=== PATIENT | male | born 1950 | race Caucasian/White ===

== ENCOUNTER → 2016-07-21 | Outpatient (REF) | payer OTHER ==
[~2016-07-21] MED LIST: ALFU10TA2 PO; ASPI325T PO; COUM2.5T11 PO; FURO1TAB15 PO; HYDR-3716 PO; METF500T PO; PERC5TAB6 PO; PRAV1TAB39 PO
== END ==
LOC: M LAB REF 16:37
PROVIDERS: ATTEND Nurse Practitioner Family
DX: S01.302A Unspecified open wound of left ear, initial encounter (principal); X58.XXXA Exposure to other specified factors, initial encounter; Y92.89 Other specified places as the place of occurrence of the external cause; Y93.89 Activity, other specified; Y99.8 Other external cause status

== ENCOUNTER → 2016-08-24 | Outpatient (CLI) | payer OTHER ==
--- NOTE | 2016-08-24 15:11 | REP ---
CT IACS WITHOUT CONTRAST: HISTORY: Chronic bilateral otitis. The right internal auditory canal, cochlea, vestibule and semicircular canals are normal in appearance. The ossicles are normal in configuration and position. The scutum is intact. There are areas of dehiscence in the tegmen. The middle ear cavity and mastoid air cells are clear. Soft tissue density is present in the right external auditory canal. This likely represents cerumen. There is no bone erosion. The left internal auditory canal, cochlea, vestibule and semicircular canals are normal in appearance. The ossicles are normal in configuration and position. The scutum is intact. There are areas of dehiscence in the tegmen. The middle ear cavity and mastoid air cells are clear. Soft tissue density is present in the left external auditory canal. This likely represents cerumen. There is no bone erosion. IMPRESSION: Normal CT IACs. Signed by Leon Dos Santos MD 08/24/2016 03:15 P
== END ==
LOC: M RAD 12:28
PROVIDERS: ATTEND Otolaryngology
DX: H65.23 Chronic serous otitis media, bilateral (principal)

== ENCOUNTER → 2016-09-17 | Outpatient (CLI) | payer OTHER ==
--- NOTE | 2016-09-17 12:10 | REP ---
Clinical: Preoperative assessment. History of diabetes . Comparison: 05/13/2016 . Technique: PA and lateral. Findings: The mediastinum and cardiac silhouette are normal. The lung maddox are clear and without acute consolidation, effusion, or pneumothorax. The skeletal structures are intact and normal. Impression: 1. No acute cardiopulmonary process. Signed by Kennedy Walker MD 09/17/2016 12:01 P
[2016-09-17 13:17] LABS: ALBUMIN 3.9 GM/DL (3.2-5.2); ALBUMIN/GLOBULIN RATIO 1.11 (1.00-1.93); ALKALINE PHOSPHATASE 100 U/L (45-117); ALT/SGPT 49 U/L (12-78); ANION GAP 7 MEQ/L (8-16); AST/SGOT 34 U/L (15-37); BILIRUBIN,TOTAL 0.3 MG/DL (0.2-1.0); BLOOD UREA NITROGEN 17 MG/DL (7-18); CALCIUM LEVEL 9.9 MG/DL (8.8-10.2); CARBON DIOXIDE LEVEL 32 MEQ/L (21-32); CHLORIDE LEVEL 100 MEQ/L (98-107); CREATININE FOR GFR 0.99 MG/DL (0.70-1.30); GLOMERULAR FILTRATION RATE > 60.0 (>49); GLUCOSE, FASTING 107 MG/DL (80-110); POTASSIUM SERUM 4.2 MEQ/L (3.5-5.1); SODIUM LEVEL 139 MEQ/L (136-145); TOTAL PROTEIN 7.4 GM/DL (6.4-8.2)
[2016-09-17 13:21] LABS: MEAN CORPUSCULAR HEMOGLOBIN 29.9 pg (27.0-33.0); MEAN CORPUSCULAR HGB CONC 33.2 g/dl (32.0-36.5); MEAN CORPUSCULAR VOLUME 90.1 fl (80.0-96.0); RED CELL DISTRIBUTION WIDTH 13.4 % (11.5-14.5); WHITE BLOOD COUNT 7.3 K/mm3 (4.0-10.0)
[2016-09-17 13:25] LABS: INR 0.87
--- NOTE | 2016-09-18 09:43 | ECGEPIP ---
Stationary ECG Study [facility] Test Date: 2016-09-17 Pat Name: GADIEL SHIN Department: Room: - Gender: M Staffing Program Manager: RAISSA : [id number] Requested By: Obdulio Hart Order Number: [id number] Reading MD: Danielle Kirk Measurements Intervals [place] Rate: 99 P: 73 MS: 246 QRS: 69 QRSD: 102 T: 60 QT: 320 QTc: 411 Interpretive Statements SINUS RHYTHM WITH SINUS ARRHYTHMIA WITH FIRST DEGREE AV BLOCK NO CHANGE SINCE 05/13/16 Electronically Signed On 09-18-2016 9:43:30 EDT by Danielle Kirk
== END ==
LOC: M ADMPAT 10:01
PROVIDERS: ATTEND Orthopaedic Surgery
DX: Z01.818 Encounter for other preprocedural examination (principal); M17.11 Unilateral primary osteoarthritis, right knee

== ENCOUNTER 2016-09-27 11:52 | Inpatient (IN) | payer OTHER ==
[2016-09-17 11:24] VITALS: BP 132/88
--- NOTE | 2016-09-23 14:27 | HPE ---
DATE OF ADMISSION: 09/27/2016 HISTORY OF PRESENT ILLNESS: This is a pleasant male with continuing symptomatic right knee osteoarthritis. He has consented for a right total knee arthroplasty per Dr. Obdulio Hart. Medical optimization per Dr. Smith, which we are still awaiting documentation. X-rays are consistent with advanced osteoarthritis. ALLERGIES: 1. Fish causes him swelling and throat closure. 2. IODINE. He has previously had some sort of response about his right arm that caused infection. 3. LIPITOR. 4. SULFA DRUGS. MEDICATIONS: List includes: - alfuzosin HCl ER 10 mg one tablet by mouth daily - aspirin 325 one by mouth every day - Coumadin 5 mg - take at bedtime the night before surgery - furosemide 80 mg one by mouth every day - metformin HCl 500 mg one by mouth daily - [place] 5/325 one by mouth every 6 hours as needed for pain - pravastatin 20 mg one tablet by mouth every day MEDICAL PROBLEM LIST: Includes: Right knee osteoarthritis. Obesity. Type 2 diabetes mellitus. Hypertension. Hypercholesteremia. SURGICAL HISTORY: Positive for: A left total knee arthroplasty in 2016. Hernia repair. Right carotid endarterectomy. Right bicep. FAMILY HISTORY: Positive for arthritis, diabetes, hypertension, thyroid disease, and hypercholesteremia. SOCIAL HISTORY: States he quit smoking. Rarely consumes alcohol. His record states he quit smoking 30 years ago, I thought he said 3. Denies illicit drugs. PHYSICAL EXAMINATION: Height 71 inches, weight 324, temperature 97.0, blood pressure 134/80, pulse 84, respirations 20. He is a pleasant well-developed, well-nourished, obese male in no acute distress. He is alert and orientated times three. Mood and affect are appropriate. Normocephalic. Neck supple. Negative JVD. Noted right-sided old healed carotid endarterectomy scar. Lungs are clear to auscultation. Chest rises symmetrically. Bowel sounds times four. He does have a stiff abdomen with central adiposity. Right lower extremity was inspected. Skin temperature, color and sensory motor within normal limits. This is a benign noninfectious looking limb. He has positive medial joint line tenderness with crepitance through flexion and extension. The knee is otherwise stable about the collateral ligaments, patellar, and quad tendons without palpable defects. No popliteal fossa mass or pain. IMPRESSION: 1. Symptomatic right knee osteoarthritis. 2. Patient consented for right total knee arthroplasty per Dr. Obdulio Hart. 3. Medical optimization per Dr. Smith, which we are awaiting documentation. 4. On-call to OR 2 grams IV Kefzol in OR. 5. Sequential compression devices (SCD) and thromboembolic deterrent stockings (TEDS) in OR. 6. The patient mentioned that he would prefer to be straddled along the operative table during his spinal block, which seemed to be helpful in his last total knee arthroplasty surgery. REYD
[~2016-09-27] VITALS: Ht 180.3 cm; Wt 153.0 kg
[~2016-09-27 11:52] MED LIST changes: +BUPIVACAINE HCL 0.25% 30 ML VIAL As Ordered ONE; +EPINEPHrine INJ 1 MG/ML 1ML VIAL/AMP As Ordered ONE; +TRANEXAMIC ACID 100 MG/ML 10ML VIAL As Ordered ONE; +ceFAZolin 1GM INJ (J0690) As Ordered ONE
[2016-09-27] MEDS ORDERED: LR 1,000 ML IV SCH ×4 (12:15→16:00)
[2016-09-27] MEDS ORDERED: BAYE325T12 PO (12:16)
[2016-09-27] MEDS ORDERED: COUM1TAB17 PO (12:38)
[2016-09-27] MEDS ORDERED: MIDAZOLAM INJ 2 MG/2 ML VIAL (J2250) As Ordered ONE ×3 (12:58→15:07)
[2016-09-27] MEDS ORDERED: fentaNYL 100 MCG/2 ML INJECTION (J3010) As Ordered ONE ×3 (12:58→14:05)
[2016-09-27] MEDS ORDERED: PHENYLephrine HCL 500 MCG/5 ML (100MCG/ML) SYRINGE (J2370) As Ordered ONE (14:05)
[2016-09-27] MEDS ORDERED: LIDOCAINE 2% INJ 100 MG/5 ML SDV (FOR ANES.) As Ordered ONE (14:05)
[2016-09-27] MEDS ORDERED: PROPOFOL 200 MG/20 ML VIAL As Ordered ONE ×3 (14:05→15:09)
[2016-09-27] MEDS ORDERED: ONDANSETRON 4MG/2ML VIAL (J2405) As Ordered ONE (14:05)
[2016-09-27] MEDS ORDERED: ROPIvacaine 0.5% 30 ML INJECTION (J2795) ONE (14:11)
[2016-09-27] MEDS ORDERED: MIDAZOLAM INJ 2 MG/2 ML VIAL (J2250) IV ONE (14:15)
[2016-09-27] MEDS ORDERED: fentaNYL 100 MCG/2 ML INJECTION (J3010) IV ONE (14:15)
[2016-09-27] MEDS ORDERED: ePHEDrine SULFATE 25 MG/5 ML(5MG/ML) SYRINGE As Ordered ONE (14:40)
[2016-09-27] MEDS ORDERED: MORPHINE PCA 1MG/ML 100ML CADD As Ordered ONE (15:48)
[2016-09-27] MEDS ORDERED: MORPHINE PCA 1MG/ML 100ML CADD IV PRN (16:00)
[2016-09-27] MEDS ORDERED: PATIENT IS CURRENTLY ON AN ON-Q PAIN BUSTER PAIN RELIEF SYSTEM XX SCH (16:00)
[2016-09-27] MEDS ORDERED: FLEET ENEMA PR PRN (16:00)
[2016-09-27] MEDS ORDERED: diphenhydrAMINE INJ 50MG/ML VIAL (J1200) IV PRN (16:00)
[2016-09-27] MEDS ORDERED: PERCOCET 5MG/325MG TAB PO PRN (16:00)
[2016-09-27] MEDS ORDERED: NALBUPHINE HCL 10 MG/ML AMP (J2300) IV PRN (16:00)
[2016-09-27] MEDS ORDERED: NALOXONE INJ 0.4 MG/1 ML VIAL (J2310) IV PRN (16:00)
[2016-09-27] MEDS ORDERED: ACETAMINOPHEN TAB 650MG DOSE (2X325MG) PO PRN (16:00)
[2016-09-27] MEDS ORDERED: ONDANSETRON 4MG/2ML VIAL (J2405) IV PRN ×3 (16:00)
[2016-09-27] MEDS ORDERED: EPIDURAL/PCA KEYS XX PRN (16:00)
[2016-09-27 16:40] VITALS: BP 137/76
[2016-09-27] MEDS ORDERED: WARFARIN SOD 5 MG TAB PO SCH (17:00)
[2016-09-27 17:10] VITALS: BP 151/71
--- NOTE | 2016-09-27 19:18 | CR.PDOC ---
[facility] Consultation Consultation Hospitalist Consult Note Date of Consultation: 09/27/2016 Reason for Consultation: Management of chronic medical issues Referring Provider: Dr. Obdulio Hart PCP: Dr. Smith HISTORY OF PRESENT ILLNESS: Mr. [place] is in the hospital for right total knee arthroplasty for chronic arthritis. He was just transferred to PCU after his surgery, he is awake alert and oriented 3. He is in no acute distress at this time. He does state that he is beginning to feel some pain in his right knee. Otherwise, regarding his chronic medical conditions, these all appear to be well controlled with his current medical regimen, will continue with medical management as detailed below. Of note, he used to suffer from hypertension, however after his endarterectomy (in quitting smoking) 3 years ago he has not required any antihypertensives. ALLERGIES: atorvastatin, iodine, sulfa antibiotics PAST MEDICAL HISTORY: Right knee osteoarthritis Obesity Type 2 diabetes mellitus Hypertension Hypercholesterolemia Obstructive sleep apnea Benign prostatic hyperplasia Chronic lower extremity edema Chronic shoulder and knee pain PAST SURGICAL HISTORY: Left TKA in April 2016 Hernia repair Right carotid endarterectomy Right biceps surgery SOCIAL HISTORY: Quit smoking approximately 3 years ago when he had his carotid endarterectomy. Rarely consumes alcohol, he essentially quit drinking 3-4 years ago as well. Denies illicit drug use. FAMILY HISTORY: Her mother suffered from dementia, hypertension, thyroid disease, and hypercholesterolemia, she recently in her 90s. His father had an abdominal aortic aneurysm, and supposedly from a clot in his legs that went up to his chest. He has a sister who has diabetes REVIEW OF SYSTEMS: Constitutional: Patient denies fevers, chills, night sweats, recent weight gain/ loss. HEENT: Patient denies blurred or double vision, transient visual disturbances, postnasal drip, epistaxis, sore throat, difficulty chewing or swallowing food. Cardiovascular: Patient denies chest discomfort/pain, palpitations, exertional dyspnea, orthopnea, claudication. He does suffer from chronic lower extremity edema which is well controlled on his current dose of Lasix. He does report that he had an echocardiogram performed in the past which was normal and requires no further intervention. He also does mention that he "occasionally has an extra beat, but it's not A. fib" Respiratory: Patient denies dyspnea, wheezing, cough, hemoptysis, sputum production. Gastrointestinal: Patient denies nausea, vomiting, diarrhea, constipation, abdominal pain, melena, hematochezia, hematemesis, jaundice. Musculoskeletal: He does admit that his right knee is beginning to have some pain, status post his right TKA today Endocrine: Patient denies polyuria, polydipsia, polyphagia. PHYSICAL EXAMINATION: Vitals:Temperature 97.8, pulse 95, respiratory rate 18, blood pressure 151/71, pulse oximetry is 96% on room air General: Awake, alert, oriented 3. He appears to be in no apparent distress. HEENT: Head normocephalic atraumatic, conjunctiva are pink, sclera are nonicteric, buccal mucosa is pink and moist with no lesions in the oropharynx. Hearing is grossly intact to conversation. Respiratory: Clear to auscultation bilaterally with no wheezes, rales, or rhonchi. Cardiovascular: Regular rate and rhythm, with no rubs, gallops, or murmur. I do not appreciate any extra beats at this time. Abdomen: Soft, obese, nontender, nondistended, no hepatosplenomegaly appreciated. Bowel sounds present. Extremities: 2+ pulses in the radial and dorsalis pedis bilaterally. No evidence of clubbing or cyanosis at this time. He is able to move his toes on both feet, and has sensation in both feet. ASSESSMENT: 1. Status post right TKA 2. Morbid obesity 3. Type 2 diabetes mellitus 4. Hypercholesterolemia 5. Obstructive sleep apnea 6. BPH 7. History of hypertension 8. DVT prophylaxis PLAN: His medication list was reviewed, we will continue his alfuzosin for BPH, aspirin and pravastatin for history of carotid artery disease and coronary artery disease status post endarterectomy. We'll continue his furosemide for chronic lower extremity edema, and metformin for his diabetes mellitus type 2. He has been diagnosed with obstructive sleep apnea, he did bring his CPAP with him which she will use in the hospital. Otherwise, he does take [place] 5/325 one by mouth every 6 hours when necessary for pain, however I will defer his pain management to orthopedic surgery. He is currently slightly hypertensive, although he is in some pain right now, and he just had his surgery today. We'll continue to monitor. DVD prophylaxis with Coumadin per ortho. My preceptor for this patient encounter was physically present in the building during the encounter and was fully available. As needed, all aspects of the patient interview, examination, medical decision making process, and medical care plan development were reviewed and approved by the preceptor. Preceptor is aware and concurs with the plan as stated in the body of this note and will attest to such by his/her cosignature. Laboratory Data Labs 24H Laboratory Tests 2 09/27/16 12:05: Random Glucose 109 09/27/16 12:30: Bedside Glucose (Misc Panel) 101 09/27/16 16:00: Bedside Glucose (Misc Panel) 103 Allergies Coded Allergies: Atorvastatin (Verified Allergy, Unknown, 05/26/16) Iodine (Verified Allergy, Unknown, 05/26/16) Sulfa Antibiotics (Verified Allergy, Unknown, 05/26/16) Home Medications Scheduled Alfuzosin Hydrochloride (Alfuzosin HCl ER) 10 Mg Tab 10 MG PO DAILY (Reported) Aspirin ([place] Aspirin) 325 Mg Tab 325 MG PO DAILY (Reported) Furosemide (Furosemide) 80 Mg Tab 80 MG PO DAILY (Reported) Metformin Hydrochloride (Metformin HCl) 500 Mg Tab 500 MG PO DAILY (Reported) Pravastatin Sodium (Pravachol) 20 Mg Tab 20 MG PO DAILY (Reported) Warfarin Sod (Coumadin) 5 Mg Tab 5 MG PO 1T (Reported) Scheduled PRN Acetaminophen/Hydrocodone (Hydrocodone/Acetaminophen 7.5-325 mg) 1 Tab Tab 1 TAB PO QIDP PRN PRN PAIN (Reported) Attending Note Attending Note I, Eloisa Urias, have seen and examined the above patient, and agree with the assessment and plan as documented above. Additionally, we will check the patient's blood sugars and use as needed sliding scale insulin before meals and at bedtime. EZIO KABA DO Sep 27, 2016 19:18 ELOISA URIAS Sep 27, 2016 21:04
[2016-09-27 20:00] VITALS: BP 97/56; PULSE 100; O2SAT 93
[2016-09-27] MEDS ORDERED: DEXTROSE 50% 50 ML SYRINGE IV PRN (21:15)
[2016-09-27] MEDS ORDERED: GLUCAGON FOR INJ 1 MG VIAL (J1610) SC PRN (21:15)
[2016-09-27] MEDS ORDERED: GLUCOSE 4 GM CHEW TABLET PO PRN (21:15)
--- NOTE | 2016-09-27 23:11 | RO ---
DATE OF PROCEDURE: 09/27/2016 PREOPERATIVE DIAGNOSIS: Right knee osteoarthritis. POSTOPERATIVE DIAGNOSIS: Right knee osteoarthritis. PROCEDURE: Right total knee arthroplasty using a PFC rotating platform, size 4 femur, size 4 tibia and a 15 polyethylene with a 38 patellar button. SURGEON: Dr. Obdulio Hart PROFESSOR OF SOCIOLOGY: Omer Mcallister ANESTHESIA: Spinal. ESTIMATED BLOOD LOSS: 50 mL. COMPLICATIONS: None. INDICATIONS: This is a 65-year-old morbidly obese gentleman with multiple medical problems who has had gradually worsening right knee pain. He went through a recent left knee arthroplasty and did well. He understood the nature of this, the risk of bleeding, infection, damage to nerves, vessels, persistent pain, wear loosening, blood clots, medical problems, instability, , among others. DESCRIPTION OF PROCEDURE: The patient was taken to the operating room and placed in the supine position after spinal anesthesia was induced. The right lower extremity was prepped and draped in the usual sterile fashion. Time-out was performed to create a longitudinal incision over the anterior aspect of the knee. Sharp dissection was carried down through this, retinaculum was encountered. It was evident that he had about a quarter size area on his inferior aspect of his patella that showed a significant amount of patellar tendonitis, but this was not something that required repair, it just looked to be somewhat frayed. But there was really no way to reinforce it. The medial parapatellar arthrotomy was performed. I everted the patella, flexed the knee up, removed any osteophytes and used the canal initiating reamer followed by the intramedullary guide set at 5 and 10. This was pinned in place by the event sales assistant and a distal femoral cut was made, which was appropriate. I protected soft tissues. I then sized the femur to be a 5, which is what we had used on the other side and pinned it in place with the 3 degree external rotation block. The 4-in-1 cutting block was then placed. The remaining cuts were made, protecting soft tissues. I then put the tibial alignment guide on with the 0 degree block, pinned this in place in appropriate amount of valgus and posterior slope and then ended up cutting 2 mm off the low side because it was quite deficient on the medial side, which was a sizable cut. It was evident, at this point, that the posterior cruciate ligament (PCL) was somewhat deficient. I removed the remaining soft tissue from the notch. I then used the steam plant control room operator to remove soft tissue and osteophytes from the femur. I then used the spacer blocks, and it was evident that I could get a 12.5 in flexion but a 15 was required in extension for stability and alignment. So, we decided to downsize the femur. I re-pinned the 4-in-1 cutting block size 5 on the end of the femur, then converted it over the size 4 and made the remaining cuts, removing 4 mm more of the bone from the posterior aspect of the femur, downsizing to a 4 and making the chamfer cuts. At this point, the blocks were appropriate, had excellent stability of the 15 in flexion and extension and excellent alignment. We then placed the box cutting guide on the femur, made the remaining cuts there and removed the bone and filed down the surfaces. The 4 posterior stabilized femur was placed on the end as a trial, and then I prepared the tibia. This was sized to be a 4. I drilled, broached and placed the trial components. Again, I was happy with the size 15 and the components that I had chosen with good alignment, good stability. I freehand cut the patella and sized to be a 38. The drill holes were made. Patella tracked quite nicely. At this point, the trial components were removed, the event sales assistant prepared the bone cement in the modern technique on the back table, and I irrigated the bony surfaces copiously and dried them. I then cemented on the tibial component and packed it in place, removed excess bone cement, and we cemented on the femoral component, impacted it in place, removed excess bone cement and then placed the size 15 rotating platform x 4 polyethylene and reduced the knee, cemented on the patellar component and held it in place with a clamp, removed the excess bone cement. I irrigated copiously, put the TXA solution in and closed the deep layer with some interrupted #1 Vicryl sutures, obtaining fixation points around the patella and then we repaired the deep layer with the Stratafix suture, single arm, starting at the midpoint and we each worked in opposite directions. I then again irrigated, closed the subcu with #2-0 Vicryl and the skin with ángela. The PainBuster catheter was inserted through the superolateral aspect of the knee and primed appropriately, and this was attached to the skin. A sterile dressing was applied, tourniquet was deflated, and he was taken to the recovery room in stable condition. There were no known complications. The plan will be routine postoperative for a knee replacement. The event sales assistant was instrumental in holding retractors and mixing the bone cement, and making a couple of the bone cuts. This was coded as an unusually difficult procedure because the patient had significant obesity in the mid 300 pound range, the knee was large, the soft tissues were harder to manage and this took significantly more time. His body mass index (BMI), I believe, was in the mid 40s at least. MTDD
[2016-09-28] VITALS (8 sets, daily range): BP systolic 163–199; BP diastolic 73–96; PULSE 76–108; O2SAT 94–96
[2016-09-28] MEDS: HumaLOG INSULIN (NovoLOG) PER UNIT SC SCH ×5 (00:51→21:00)
[2016-09-28] MEDS ORDERED: MORPHINE 2 MG/ML 1ML SYRINGE IV ONE (01:30)
[2016-09-28 06:09] LABS: MEAN CORPUSCULAR HEMOGLOBIN 30.4 pg (27.0-33.0); MEAN CORPUSCULAR HGB CONC 33.4 g/dl (32.0-36.5); MEAN CORPUSCULAR VOLUME 91.1 fl (80.0-96.0); RED CELL DISTRIBUTION WIDTH 13.9 % (11.5-14.5); WHITE BLOOD COUNT 9.5 K/mm3 (4.0-10.0)
[2016-09-28 06:15] LABS: INR 1.03
[2016-09-28 06:29] LABS: ANION GAP 6 MEQ/L (8-16); BLOOD UREA NITROGEN 15 MG/DL (7-18); CARBON DIOXIDE LEVEL 30 MEQ/L (21-32); CHLORIDE LEVEL 101 MEQ/L (98-107); CREATININE FOR GFR 0.99 MG/DL (0.70-1.30); GLOMERULAR FILTRATION RATE > 60.0 (>49); GLUCOSE, FASTING 146 MG/DL (80-110); SODIUM LEVEL 137 MEQ/L (136-145)
[2016-09-28] MEDS ORDERED: ONDANSETRON 4 MG TAB (S0181) PO PRN (06:30)
[2016-09-28] MEDS ORDERED: PERCOCET 5MG/325MG TAB PO PRN (06:30)
[2016-09-28] MEDS: PERCOCET 5MG/325MG TAB PO PRN ×4 (07:56→21:57)
[2016-09-28] MEDS: metFORMIN (GLUCOPHAGE) 500 MG TAB PO SCH (07:57)
[2016-09-28] MEDS ORDERED: FLEET ENEMA PR PRN (08:15)
[2016-09-28] MEDS: MOM 30ML SUSPENSION UDC PO SCH (09:38)
[2016-09-28] MEDS: MIRALAX *UNIT DOSE* 17GM PACKET PO SCH (09:38)
[2016-09-28] MEDS: PRAVASTATIN 20 MG TAB PO SCH (09:39)
[2016-09-28] MEDS: ASPIRIN 325 MG TAB PO SCH (09:39)
[2016-09-28] MEDS: SENOKOT S TAB PO SCH ×2 (09:39→21:56)
[2016-09-28] MEDS: FUROSEMIDE 80 MG TAB PO SCH (09:39)
[2016-09-28] MEDS: ALFUZOSIN 10 MG PO SCH (09:40)
--- NOTE | 2016-09-28 09:51 | REP ---
RIGHT KNEE: Two views of the right knee are performed showing total knee arthroplasty which appears in good position. Structures are well aligned. Metallic skin ángela are seen anteriorly. Signed by Servando Lo MD 09/28/2016 04:36 P
[2016-09-28] MEDS ORDERED: WARFARIN SOD 5 MG TAB PO SCH (17:00)
[2016-09-29] MEDS: PERCOCET 5MG/325MG TAB PO PRN ×3 (03:29→11:37)
[2016-09-29 06:00] VITALS: BP 175/85
[2016-09-29 07:29] LABS: MEAN CORPUSCULAR HGB CONC 33.2 g/dl (32.0-36.5); MEAN CORPUSCULAR VOLUME 90.5 fl (80.0-96.0); RED CELL DISTRIBUTION WIDTH 13.8 % (11.5-14.5); WHITE BLOOD COUNT 9.6 K/mm3 (4.0-10.0)
[2016-09-29 07:33] LABS: INR 1.38
[2016-09-29 07:43] LABS: ANION GAP 8 MEQ/L (8-16); BLOOD UREA NITROGEN 11 MG/DL (7-18); CARBON DIOXIDE LEVEL 31 MEQ/L (21-32); CHLORIDE LEVEL 98 MEQ/L (98-107); CREATININE FOR GFR 0.95 MG/DL (0.70-1.30); GLOMERULAR FILTRATION RATE > 60.0 (>49); GLUCOSE, FASTING 127 MG/DL (80-110); POTASSIUM SERUM 3.9 MEQ/L (3.5-5.1); SODIUM LEVEL 137 MEQ/L (136-145)
[2016-09-29] MEDS ORDERED: COUM2.5T11 PO (08:11)
[2016-09-29] MEDS ORDERED: PERC5TAB6 PO (08:11)
[2016-09-29] MEDS: MIRALAX *UNIT DOSE* 17GM PACKET PO SCH (08:47)
[2016-09-29] MEDS: FUROSEMIDE 80 MG TAB PO SCH (08:48)
[2016-09-29] MEDS: MOM 30ML SUSPENSION UDC PO SCH (08:48)
[2016-09-29] MEDS: ASPIRIN 325 MG TAB PO SCH (08:48)
[2016-09-29] MEDS: PRAVASTATIN 20 MG TAB PO SCH (08:48)
[2016-09-29] MEDS: metFORMIN (GLUCOPHAGE) 500 MG TAB PO SCH (08:48)
[2016-09-29] MEDS: ALFUZOSIN 10 MG PO SCH (08:48)
[2016-09-29] MEDS: SENOKOT S TAB PO SCH (08:48)
[2016-09-29] MEDS: HumaLOG INSULIN (NovoLOG) PER UNIT SC SCH ×2 (08:49→12:01)
== END 2016-09-29 14:35 | disposition home health service (06) | DRG 302 ==
LOC: M OR 11:52 → M PCU 16:31 → M MS5PR 09-28 14:55
PROVIDERS: ADMIT Orthopaedic Surgery; ATTEND Orthopaedic Surgery
PROC: 0SRC0J9 Replacement of Right Knee Joint with Synthetic Substitute, Cemented, Open Approach (ICD-10-PCS; principal; 2016-09-27 14:15)
DX: M17.11 Unilateral primary osteoarthritis, right knee (principal); Z68.42 Body mass index [BMI] 45.0-49.9, adult; E66.01 Morbid (severe) obesity due to excess calories; Z88.2 Allergy status to sulfonamides; Z88.8 Allergy status to other drugs, medicaments and biological substances; E11.9 Type 2 diabetes mellitus without complications; I10 Essential (primary) hypertension; E78.00 Pure hypercholesterolemia, unspecified; Z79.82 Long term (current) use of aspirin; Z79.01 Long term (current) use of anticoagulants; Z79.899 Other long term (current) drug therapy; Z87.891 Personal history of nicotine dependence; N40.0 Benign prostatic hyperplasia without lower urinary tract symptoms; G47.33 Obstructive sleep apnea (adult) (pediatric)

== ENCOUNTER → 2016-10-01 | Outpatient (REF) | payer OTHER ==
[~2016-10-01] MED LIST changes: +BAYE325T12 PO; -BUPIVACAINE HCL 0.25% 30 ML VIAL As Ordered ONE; +COUM1TAB17 PO; -EPINEPHrine INJ 1 MG/ML 1ML VIAL/AMP As Ordered ONE; -TRANEXAMIC ACID 100 MG/ML 10ML VIAL As Ordered ONE; -ceFAZolin 1GM INJ (J0690) As Ordered ONE
[2016-10-01 14:24] LABS: INR 1.69
== END ==
LOC: M SHH 13:47
PROVIDERS: ATTEND Nurse Practitioner Family
DX: Z51.81 Encounter for therapeutic drug level monitoring (principal); Z79.01 Long term (current) use of anticoagulants

== ENCOUNTER → 2016-10-04 | Outpatient (REF) | payer OTHER ==
[2016-10-04 13:44] LABS: INR 2.47
== END ==
LOC: M SHH 12:37
PROVIDERS: ATTEND Nurse Practitioner Family
DX: Z51.81 Encounter for therapeutic drug level monitoring (principal); Z79.01 Long term (current) use of anticoagulants

== ENCOUNTER → 2016-10-07 | Outpatient (REF) | payer OTHER ==
[2016-10-07 13:17] LABS: INR 1.67
== END ==
LOC: M LAB REF 12:29
PROVIDERS: ATTEND Orthopaedic Surgery
DX: Z79.01 Long term (current) use of anticoagulants (principal)

== ENCOUNTER → 2016-10-11 | Outpatient (REF) | payer OTHER ==
[2016-10-11 12:23] LABS: INR 1.53
== END ==
LOC: M SHH 12:02
PROVIDERS: ATTEND Nurse Practitioner Family
DX: Z79.01 Long term (current) use of anticoagulants (principal)

== ENCOUNTER → 2016-10-14 | Outpatient (REF) | payer OTHER ==
[2016-10-14 10:40] LABS: INR 1.77
== END ==
LOC: M LABDRAW1 10:18
PROVIDERS: ATTEND Nurse Practitioner Family
DX: Z79.01 Long term (current) use of anticoagulants (principal)

== ENCOUNTER → 2016-10-18 | Outpatient (REF) | payer OTHER ==
[2016-10-18 11:43] LABS: INR 2.29
== END ==
LOC: M SHH 11:22
PROVIDERS: ATTEND Nurse Practitioner Family
DX: Z79.01 Long term (current) use of anticoagulants (principal)

== ENCOUNTER → 2016-10-21 | Outpatient (REF) | payer OTHER ==
[2016-10-21 13:05] LABS: INR 1.78
== END ==
LOC: M SHH 12:41
PROVIDERS: ATTEND Nurse Practitioner Family
DX: Z79.01 Long term (current) use of anticoagulants (principal)

== ENCOUNTER → 2016-10-25 | Outpatient (REF) | payer OTHER ==
[2016-10-25 13:47] LABS: INR 1.2
== END ==
LOC: M LABDRAW1 12:40
PROVIDERS: ATTEND Orthopaedic Surgery
DX: Z79.01 Long term (current) use of anticoagulants (principal)

== ENCOUNTER → 2017-12-16 | Outpatient (REF) | payer OTHER | LOC: M LAB REF 16:29 | DX: B37.84 Candidal otitis externa (principal) | CPT/HCPCS: 87186 ==

== ENCOUNTER 2018-01-03 08:44 | Inpatient (IN) | payer OTHER ==
[2018-01-03 09:51] LABS: KETONE, URINE AUTO RFX NEGATIVE (NEGATIVE); LEUKOCYTE ESTERASE UR AUTO RFX NEGATIVE (NEGATIVE); NITRITE, URINE AUTO RFX NEGATIVE (NEGATIVE); RBC, URINE AUTO RFX 0 /HPF (0-3); SPECIFIC GRAVITY UR AUTO RFX 1.026 (1.002-1.035); SQUAM EPITHELIAL CELL UR AURFX 0 /HPF (0-6); WBC, URINE AUTO RFX 0 /HPF (0-3)
[2018-01-03 09:55] LABS: BASO # 0.1 10^3/uL (0.0-0.2); BASO % 0.9 % (0.0-1.0); EOS # 0.4 10^3/uL (0.0-0.50); EOS % 5.7 % (0.0-3.0); HEMATOCRIT 44.3 % (42.0-52.0); IMMATURE GRANULOCYTE % 0.7 % (0-3.0); LYMPH # 1.6 10^3/uL (1.5-4.5); LYMPH % 20.6 % (24.0-44.0); MEAN CORPUSCULAR HEMOGLOBIN 30.4 pg (27.0-33.0); MEAN CORPUSCULAR HGB CONC 33.9 g/dl (32.0-36.5); MEAN CORPUSCULAR VOLUME 89.7 fl (80.0-96.0); MONO # 0.7 10^3/uL (0.0-0.8); MONO % 9.4 % (0.0-5.0); NEUTROPHILS # 4.8 10^3/uL (1.8-7.7); NEUTROPHILS % 62.7 % (36.0-66.0); PLATELET COUNT, AUTOMATED 201 10^3/uL (150-450); RED BLOOD COUNT 4.94 10^6/uL (4.30-6.10); RED CELL DISTRIBUTION WIDTH 12.9 % (11.5-14.5); WHITE BLOOD COUNT 7.6 10^3/uL (4.0-10.0)
[2018-01-03 10:22] LABS: ALBUMIN 3.7 GM/DL (3.2-5.2); ALKALINE PHOSPHATASE 108 U/L (45-117); ALT/SGPT 55 U/L (12-78); ANION GAP 6 MEQ/L (8-16); AST/SGOT 33 U/L (7-37); BILIRUBIN,DIRECT < 0.1 MG/DL (0.0-0.2); BILIRUBIN,TOTAL 0.3 MG/DL (0.2-1.0); BLOOD UREA NITROGEN 20 MG/DL (7-18); CALCIUM LEVEL 9.3 MG/DL (8.8-10.2); CARBON DIOXIDE LEVEL 29 MEQ/L (21-32); CHLORIDE LEVEL 99 MEQ/L (98-107); CREATININE FOR GFR 1.06 MG/DL (0.70-1.30); GLOMERULAR FILTRATION RATE > 60.0 (>49); GLUCOSE, FASTING 376 MG/DL (70-100); LIPASE 1169 U/L (73-393); POTASSIUM SERUM 4.5 MEQ/L (3.5-5.1); SODIUM LEVEL 134 MEQ/L (136-145); TOTAL PROTEIN 7.8 GM/DL (6.4-8.2)
[2018-01-03] MEDS: NS 1,000 ML IV ×3 (10:51→18:29)
[2018-01-03] MEDS: MORPHINE 4 MG/ML 1ML VIAL/SYRINGE (J2270) IV ×3 (11:48→20:37)
[2018-01-03] MEDS: HumaLOG INSULIN (NovoLOG) PER UNIT SC ×4 (12:00→20:55)
[2018-01-03] MEDS ORDERED: ONDANSETRON 4MG/2ML VIAL (J2405) IV (12:30)
[2018-01-03] MEDS ORDERED: ACETAMINOPHEN TAB 650MG DOSE (2X325MG) PO (12:30)
[2018-01-03] MEDS: LEVEMIR (INSULIN DETEMIR) 1 UNITS/0.01ML SC (12:45)
[2018-01-03] MEDS ORDERED: DEXTROSE 50% 50 ML SYRINGE IV (12:45)
[2018-01-03] MEDS ORDERED: GLUCAGON FOR INJ 1 MG VIAL (J1610) SC (12:45)
[2018-01-03] MEDS ORDERED: GLUCOSE 4 GM CHEW TABLET PO (12:45)
[2018-01-03 13:51] LABS: BEDSIDE GLUCOSE 263 MG/DL (80-115)
[2018-01-03] MEDS: SODIUM CHLORIDE 0.9% 1000 ML IV (14:38)
[2018-01-03] MEDS: ENOXAPARIN 40 MG/0.4 ML SYRINGE (J1650) SC (15:01)
[2018-01-03 16:28] LABS: BEDSIDE GLUCOSE 200 MG/DL (80-115)
[2018-01-03 20:29] LABS: BEDSIDE GLUCOSE 119 MG/DL (80-115)
[2018-01-04] MEDS: NS 1,000 ML IV (01:25)
[2018-01-04] MEDS: MORPHINE 4 MG/ML 1ML VIAL/SYRINGE (J2270) IV (04:26)
[2018-01-04 06:31] LABS: ESTIMATED AVERAGE GLUCOSE 237 MG/DL (60-110); HEMOGLOBIN A1c 9.9 %
[2018-01-04 07:48] LABS: BEDSIDE GLUCOSE 153 MG/DL (80-115)
[2018-01-04 08:05] LABS: HEMATOCRIT 43.3 % (42.0-52.0); HEMOGLOBIN 14.4 g/dl (13.5-17.5); MEAN CORPUSCULAR HEMOGLOBIN 30.4 pg (27.0-33.0); MEAN CORPUSCULAR HGB CONC 33.3 g/dl (32.0-36.5); MEAN CORPUSCULAR VOLUME 91.5 fl (80.0-96.0); PLATELET COUNT, AUTOMATED 195 10^3/uL (150-450); RED BLOOD COUNT 4.73 10^6/uL (4.30-6.10); WHITE BLOOD COUNT 8.3 10^3/uL (4.0-10.0)
[2018-01-04 08:12] LABS: ALBUMIN 3.5 GM/DL (3.2-5.2); ALBUMIN/GLOBULIN RATIO 1.17 (1.00-1.93); ALKALINE PHOSPHATASE 95 U/L (45-117); ALT/SGPT 58 U/L (12-78); ANION GAP 3 MEQ/L (8-16); AST/SGOT 45 U/L (7-37); BILIRUBIN,TOTAL 0.4 MG/DL (0.2-1.0); BLOOD UREA NITROGEN 13 MG/DL (7-18); CALCIUM LEVEL 8.6 MG/DL (8.8-10.2); CARBON DIOXIDE LEVEL 31 MEQ/L (21-32); CHLORIDE LEVEL 106 MEQ/L (98-107); CREATININE FOR GFR 0.79 MG/DL (0.70-1.30); GLOMERULAR FILTRATION RATE > 60.0 (>49); GLUCOSE, FASTING 148 MG/DL (70-100); LIPASE 271 U/L (73-393); SODIUM LEVEL 140 MEQ/L (136-145); TOTAL PROTEIN 6.5 GM/DL (6.4-8.2)
[2018-01-04] MEDS: FUROSEMIDE 80 MG TAB PO (09:55)
[2018-01-04] MEDS: LEVEMIR (INSULIN DETEMIR) 1 UNITS/0.01ML SC (09:55)
[2018-01-04] MEDS: HumaLOG INSULIN (NovoLOG) PER UNIT SC ×2 (09:56→13:55)
[2018-01-04] MEDS: ENOXAPARIN 40 MG/0.4 ML SYRINGE (J1650) SC (09:56)
[2018-01-04] MEDS: amLODIPine 5 MG TAB PO (09:58)
[2018-01-04 11:23] LABS: BEDSIDE GLUCOSE 185 MG/DL (80-115)
== END 2018-01-04 13:00 | disposition home or self-care (01) | DRG 440 ==
LOC: M ED 08:44 → M ED INP 12:30 → M MSPAV 13:28
DX: K85.90 Acute pancreatitis without necrosis or infection, unspecified (principal); E11.9 Type 2 diabetes mellitus without complications; I10 Essential (primary) hypertension; E78.5 Hyperlipidemia, unspecified; Z79.84 Long term (current) use of oral hypoglycemic drugs; Z79.82 Long term (current) use of aspirin; Z79.899 Other long term (current) drug therapy; Z88.2 Allergy status to sulfonamides; Z91.048 Other nonmedicinal substance allergy status; Z88.8 Allergy status to other drugs, medicaments and biological substances; Z96.653 Presence of artificial knee joint, bilateral; Z87.891 Personal history of nicotine dependence

== ENCOUNTER → 2018-01-13 | Outpatient (REF) | payer OTHER ==
[2018-01-13 14:14] LABS: LIPASE 643 U/L (73-393)
[2018-01-13 14:14] LABS: AMYLASE 98 U/L (25-115)
== END ==
LOC: M LAB REF 13:17
DX: K86.1 Other chronic pancreatitis (principal)
CPT/HCPCS: 82150

== ENCOUNTER → 2018-01-23 | Outpatient (REF) | payer OTHER ==
[2018-01-23 13:38] LABS: APPEARANCE, URINE CLEAR (CLEAR); BACTERIA, URINE AUTO NEGATIVE (NEGATIVE); BILIRUBIN, URINE AUTO NEGATIVE (NEGATIVE); BLOOD, URINE BLOOD NEGATIVE (NEGATIVE); COLOR, URINE YELLOW (YELLOW); GLUCOSE, URINE (UA) AUTO NEGATIVE (NEGATIVE); KETONE, URINE AUTO NEGATIVE (NEGATIVE); LEUKOCYTE ESTERASE, URINE AUTO NEGATIVE (NEGATIVE); NITRITE, URINE AUTO NEGATIVE (NEGATIVE); PROTEIN, URINE AUTO 1+ mg/dL (NEGATIVE); RBC, URINE AUTO 0 /HPF (0-3); SPECIFIC GRAVITY URINE AUTO 1.009 (1.002-1.035); SQUAMOUS EPITHELIAL CELL UR AU 0 /HPF (0-6); UROBILINOGEN, URINE AUTO 0.2 mg/dL (0.0-2.0); WBC, URINE AUTO 0 /HPF (0-3)
== END ==
LOC: M SMT 12:52
DX: N32.9 Bladder disorder, unspecified (principal); Z79.899 Other long term (current) drug therapy
CPT/HCPCS: 81001

== ENCOUNTER → 2018-01-25 | Outpatient (REF) | payer OTHER ==
[2018-01-25 17:52] LABS: LIPASE 335 U/L (73-393)
[2018-01-25 17:52] LABS: AMYLASE 65 U/L (25-115)
== END ==
LOC: M LAB REF 16:50
DX: K85.90 Acute pancreatitis without necrosis or infection, unspecified (principal)
CPT/HCPCS: 82150

== ENCOUNTER 2019-06-02 11:02 | Emergency (ER) | payer MEDICARE, OTHER ==
[~2019-06-02] VITALS: Ht 180.3 cm; Wt 138.6 kg
[~2019-06-02 11:02] MED LIST changes: +ALCOPAD17 TOP; +AMLO5TAB6 PO; +ASPI-1 PO; +ASPI-255 PO; -ASPI325T PO; +BLOOKIT21 XX; +BYDU2INJ7; +BYDU2INJ7 SC; -COUM2.5T11 PO; +COUM2.5T17 PO; -FURO1TAB15 PO; +FURO80TA2 PO; +GLUC1TES2 XX; +LANC30MI XX; +LEVE1INJ5 SC; +MELO15TA28 PO; -METF500T PO; +METF500T13 PO; +NEOM1SOL13; +NEOM1SOL13 AD; +PEN1MIS21 SC; +PERC5TAB12 PO; -PERC5TAB6 PO
[2019-06-02] MEDS ORDERED: TRES1INJ (11:24)
[2019-06-02] MEDS ORDERED: CILO50TA PO (11:24)
[2019-06-02] MEDS ORDERED: XARE20TA PO (11:24)
[2019-06-02] MEDS ORDERED: TORS20TA2 PO (11:24)
[2019-06-02] MEDS ORDERED: HYDR-3713 PO (11:24)
[2019-06-02 12:19] LABS: BASO # 0.1 10^3/uL (0.0-0.2); BASO % 0.4 % (0.0-1.0); EOS # 0.3 10^3/uL (0.0-0.5); EOS % 2.2 % (0.0-3.0); HEMATOCRIT 46.2 % (42.0-52.0); LYMPH # 2.2 10^3/uL (1.5-5.0); LYMPH % 19.2 % (24.0-44.0); MEAN CORPUSCULAR HEMOGLOBIN 29.5 pg (27.0-33.0); MEAN CORPUSCULAR HGB CONC 32.5 g/dl (32.0-36.5); MEAN CORPUSCULAR VOLUME 90.8 fl (80.0-96.0); MONO % 8.9 % (0.0-5.0); NEUTROPHILS # 7.8 10^3/uL (1.5-8.5); NEUTROPHILS % 68.9 % (36.0-66.0); PLATELET COUNT, AUTOMATED 257 10^3/uL (150-450); RED BLOOD COUNT 5.09 10^6/uL (4.30-6.10); WHITE BLOOD COUNT 11.4 10^3/uL (4.0-10.0)
[2019-06-02 12:38] LABS: ERYTHROCYTE SEDIMENTATION RATE 54 mm/hr (0-20)
[2019-06-02 12:48] LABS: C REACTIVE PROTEIN QUANTITATIV 4.57 MG/DL (0.00-0.30); URIC ACID 10.4 MG/DL (3.5-7.2)
[2019-06-02] MEDS ORDERED: ALLO100T PO (13:34)
--- NOTE | 2019-06-02 13:37 | REP ---
RIGHT WRIST COMPLETE: 06/02/2019. CLINICAL HISTORY: Trauma. COMPARISON: Right hand series today. FINDINGS: Four views are provided. There are numerous lucencies in the body and margins of the several carpal bones including the waist of the scaphoid, mid pole, and proximal lunate as well as the triquetrum. There is fragmentation from old trauma of the lunate and widening of the scapholunate joint. One of its fragments is displaced in the volar direction and most of the lunate is displaced in an ulnar direction. Major fragment is still diminutive, and this is remote trauma. Marginal cystic or erosive changes are noted in that proximal carpal row. Scapholunate ligament would be torn. The remainder of triquetral ligament cannot be evaluated, as that joint space is widened. Small lucency in the distal radius may also be post-traumatic cystic change. The distal ulna is unremarkable. The metacarpals show no fracture or acute finding. IMPRESSION: 1. 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 The scapholunate ligament must be torn with widened joint space, and there are multiple cystic erosions and cystic changes in the bodies of multiple carpal bones as described. The patient should have follow up with a wrist and hand diesel engine specialist. I do not see definite acute fracture. Electronically Signed by Mic Fowler MD 06/02/2019 07:56 P
--- NOTE | 2019-06-02 13:41 | REP ---
RIGHT HAND COMPLETE: 06/02/2019. CLINICAL HISTORY: Trauma. COMPARISON: Right wrist 06/02/2019. FINDINGS: Four views are provided. There are chronic post-traumatic changes involving the carpal bones with the lunate fragmented and the largest fragment displaced in an ulnar direction. Other fragments between the proximal pole of the scaphoid and this would infer that the scapholunate ligament is torn. There are lucencies in the bodies of the capitate, lunate, and triquetrum, and marginal lucencies or erosions in capitate, lunate, and scaphoid, and possibly the hamate. Distal radius and ulna show only a small lucency in the radius which is nonarticular. The metacarpals and phalanges are without fracture. There are minor degenerative changes at some of the IP joints and 1st MCP joint with slight narrowing of other MCP joints. I do not see evidence of an acute fracture. There is soft tissue swelling all along the dorsal aspect of the wrist. The fragmentation of bone in the proximal carpal row shows the fragments sharply defined and, therefore, they are felt to be most likely chronic with superimposed acute trauma difficult to differentiate. IMPRESSION: 1. There are chronic old post-traumatic changes in the proximal carpal row with fragmentation of the lunate, abnormal widening of the scapholunate joint with fragments in that space and, therefore, scapholunate ligament is disrupted. 2. Cystic changes and erosions in multiple carpal bones and distal pole of distal radius in nonarticular fashion with that bone. I cannot confirm an acute fracture as the fragments all appear to have fairly smooth margins, but there is significant soft tissue swelling dorsal aspect hand and wrist. Followup with orthopedic hand and wrist specialist. Electronically Signed by Mic Fowler MD 06/02/2019 07:56 P
[2019-06-02 13:44] VITALS: BP 138/83
--- NOTE | 2019-06-04 15:57 | ED PDOC ---
Post-Departure Follow-Up dr medina faxed formal report of right wrist film for fu Puneet Cruz MD Jun 04, 2019 15:57
--- NOTE | 2019-06-04 15:57 | ED PDOC ---
Post-Departure Follow-Up right hand faxed formal report of right hand film for fu Puneet Cruz MD Jun 04, 2019 15:57
== END 2019-06-02 13:43 | disposition home or self-care (01) ==
LOC: M ED 11:02
DX: M10.9 Gout, unspecified (principal); S63.91XA Sprain of unspecified part of right wrist and hand, initial encounter; X50.9XXA Other and unspecified overexertion or strenuous movements or postures, initial encounter; Y92.099 Unspecified place in other non-institutional residence as the place of occurrence of the external cause; Y93.89 Activity, other specified; Y99.9 Unspecified external cause status; I50.9 Heart failure, unspecified; I10 Essential (primary) hypertension; M89.8X8 Other specified disorders of bone, other site; Z87.828 Personal history of other (healed) physical injury and trauma; Z79.82 Long term (current) use of aspirin; Z79.4 Long term (current) use of insulin; Z79.899 Other long term (current) drug therapy; Z88.2 Allergy status to sulfonamides

== ENCOUNTER 2019-08-01 10:21 | Day surgery (SDC) | payer MEDICARE ==
[~2019-08-01] VITALS: Ht 180.3 cm; Wt 140.2 kg
[~2019-08-01 10:21] MED LIST changes: -ALFU10TA2 PO; +ALFU10TA3 PO; +ALLO100T PO; +ASPI81TA85 PO; +CILO50TA PO; +HYDR-3713 PO; +TORS20TA2 PO; +TRES1INJ; +XARE20TA PO
[2019-08-01] MEDS ORDERED: propofoL 200 MG/20 ML VIAL As Ordered ONE (10:28)
[2019-08-01] MEDS ORDERED: LIDOCAINE 2% INJ 100 MG/5 ML SDV (FOR ANES.) As Ordered ONE (10:28)
[2019-08-01] MEDS ORDERED: NS 1,000 ML IV ONE (10:45)
--- NOTE | 2019-08-01 12:52 | ROOR ---
Patient Name: Tommy Montana Procedure Date: 08/01/2019 12:06 PM Date of : 1950 Age: 68 Room: [facility] Gender: Male Note Status: Finalized Procedure: Total Colonoscopy to Cecum + Cold Snare Polypectomy + Hemoclips Indications: High risk colon cancer surveillance: Personal history of colonic polyps, Last colonoscopy: 2013 Providers: Julio Horner MD Referring MD: SAM PARRISH JR, MD Requesting Provider: Medicines: Monitored Anesthesia Care Complications: No immediate complications. Procedure: Pre-Anesthesia Assessment: - The heart rate, respiratory rate, oxygen saturations, blood pressure, adequacy of pulmonary ventilation, and response to care were monitored throughout the procedure. The Colonoscope was introduced through the anus and advanced to the cecum, identified by appendiceal orifice and ileocecal valve. The colonoscopy was performed without difficulty. The patient tolerated the procedure well. The quality of the bowel preparation was excellent. Findings: The perianal and digital rectal examinations were normal. Non-bleeding internal hemorrhoids were found during retroflexion. The hemorrhoids were small and Grade I (internal hemorrhoids that do not prolapse). Multiple small and large-mouthed diverticula were found in the recto-sigmoid colon, sigmoid colon and descending colon. A small polyp was found in the rectum. The polyp was sessile. The polyp was removed with a jumbo cold forceps. Resection and retrieval were complete. To prevent bleeding after the polypectomy, one hemostatic clip was successfully placed (MR conditional). There was no bleeding at the end of the procedure. A medium polyp was found in the hepatic flexure. The polyp was sessile. The polyp was removed with a cold snare. Resection and retrieval were complete. To prevent bleeding after the polypectomy, one hemostatic clip was successfully placed (MR conditional). There was no bleeding at the end of the procedure. A small polyp was found in the cecum. The polyp was sessile. The polyp was removed with a jumbo cold forceps. Resection and retrieval were complete. A small polyp was found in the mid ascending colon. The polyp was sessile. The polyp was removed with a jumbo cold forceps. Resection and retrieval were complete. Two sessile polyps were found at 60 cm proximal to the anus. The polyps were small in size. These polyps were removed with a cold snare. Resection and retrieval were complete. To prevent bleeding after the polypectomy, two hemostatic clips were successfully placed (MR conditional). There was no bleeding at the end of the procedure. Impression: - Non-bleeding internal hemorrhoids. - Diverticulosis in the recto-sigmoid colon, in the sigmoid colon and in the descending colon. - One small polyp in the rectum, removed with a jumbo cold forceps. Resected and retrieved. Clip (MR conditional) was placed. - One medium polyp at the hepatic flexure, removed with a cold snare. Resected and retrieved. Clip (MR conditional) was placed. - One small polyp in the cecum, removed with a jumbo cold forceps. Resected and retrieved. - One small polyp in the mid ascending colon, removed with a jumbo cold forceps. Resected and retrieved. - Two small polyps at 60 cm proximal to the anus, removed with a cold snare. Resected and retrieved. Clips (MR conditional) were placed. - The exam was otherwise normal to the cecum. Recommendation: - Patient has a contact number available for emergencies. The signs and symptoms of potential delayed complications were discussed with the patient. Return to normal activities tomorrow. Written discharge instructions were provided to the patient. - High fiber diet. - Discharge patient to home. - Await pathology results. - Telephone GI clinic for pathology results in 1 week. - Repeat colonoscopy in 5 years for surveillance based on pathology results. - Return to referring physician. - Resume Xarelto (rivaroxaban) at prior dose today. - The findings and recommendations were discussed with the patient's family. Julio Horner MD Julio Horner MD 08/01/2019 12:52:38 PM Electronically signed by Julio Horner MD Number of Addenda: 0 Note Initiated On: 08/01/2019 12:06 PM Estimated Blood Loss: Estimated blood loss: none.
[2019-08-01 13:15] VITALS: BP 114/62
== END 2019-08-01 13:32 | disposition home or self-care (01) ==
LOC: M OPP 10:21
PROVIDERS: ATTEND Internal Medicine Gastroenterology
DX: Z12.11 Encounter for screening for malignant neoplasm of colon (principal); K64.0 First degree hemorrhoids; K63.5 Polyp of colon; K57.30 Diverticulosis of large intestine without perforation or abscess without bleeding; I48.91 Unspecified atrial fibrillation; I25.10 Atherosclerotic heart disease of native coronary artery without angina pectoris; E11.9 Type 2 diabetes mellitus without complications; G47.30 Sleep apnea, unspecified; R94.31 Abnormal electrocardiogram [ECG] [EKG]; K76.0 Fatty (change of) liver, not elsewhere classified; M25.612 Stiffness of left shoulder, not elsewhere classified; R06.09 Other forms of dyspnea; M15.0 Primary generalized (osteo)arthritis; Z96.653 Presence of artificial knee joint, bilateral; N40.0 Benign prostatic hyperplasia without lower urinary tract symptoms; Z87.891 Personal history of nicotine dependence; Z79.82 Long term (current) use of aspirin; Z79.4 Long term (current) use of insulin; Z79.899 Other long term (current) drug therapy; Z88.2 Allergy status to sulfonamides

== ENCOUNTER 2019-08-13 12:36 | Emergency (ER) | payer MEDICARE ==
[~2019-08-13] VITALS: Ht 180.3 cm; Wt 138.2 kg
[2019-08-13] MEDS ORDERED: NS 500 ML IV ONE (13:30)
[2019-08-13 14:07] LABS: BASO # 0.1 10^3/uL (0.0-0.2); BASO % 0.6 % (0.0-1.0); EOS # 0.2 10^3/uL (0.0-0.5); EOS % 1.8 % (0.0-3.0); HEMATOCRIT 42.3 % (42.0-52.0); HEMOGLOBIN 14.2 g/dl (13.5-17.5); LYMPH # 1.8 10^3/uL (1.5-5.0); LYMPH % 13.5 % (24.0-44.0); MEAN CORPUSCULAR HEMOGLOBIN 29.6 pg (27.0-33.0); MEAN CORPUSCULAR HGB CONC 33.6 g/dl (32.0-36.5); MEAN CORPUSCULAR VOLUME 88.3 fl (80.0-96.0); MONO # 1.3 10^3/uL (0.0-0.8); NEUTROPHILS # 9.6 10^3/uL (1.5-8.5); NEUTROPHILS % 73.8 % (36.0-66.0); PLATELET COUNT, AUTOMATED 287 10^3/uL (150-450); RED BLOOD COUNT 4.79 10^6/uL (4.30-6.10)
[2019-08-13 14:35] LABS: ALBUMIN 3.6 GM/DL (3.2-5.2); ALT/SGPT 35 U/L (12-78); BILIRUBIN,DIRECT < 0.1 MG/DL (0.0-0.2); BILIRUBIN,TOTAL 0.6 MG/DL (0.2-1.0); BLOOD UREA NITROGEN 16 MG/DL (7-18); CALCIUM LEVEL 9.9 MG/DL (8.8-10.2); CARBON DIOXIDE LEVEL 31 MEQ/L (21-32); CHLORIDE LEVEL 96 MEQ/L (98-107); CREATININE FOR GFR 1.16 MG/DL (0.70-1.30); GLOMERULAR FILTRATION RATE > 60.0 (>49); GLUCOSE, FASTING 181 MG/DL (70-100); LIPASE 171 U/L (73-393); POTASSIUM SERUM 3.6 MEQ/L (3.5-5.1); SODIUM LEVEL 134 MEQ/L (136-145); TOTAL PROTEIN 8.1 GM/DL (6.4-8.2)
[2019-08-13] MEDS ORDERED: ISOVUE-370 76% 100ML VIAL (Q9967) As Ordered ONE (14:37)
--- NOTE | 2019-08-13 15:07 | REP ---
Clinical: Periumbilical pain. Technique: Axial contrast enhanced images from the lung bases to the pubic symphysis using 100 ml Isovue 370 intravenous contrast material with coronal and sagittal re-formations. Comparison: 01/03/2018. Findings: A small 1 cm fat containing periumbilical hernia is identified with surrounding subcutaneous edema and infiltration suggesting the possibility of periumbilical cellulitis. The herniated fat appears clean and without stranding to suggest incarceration. Liver, spleen, pancreas, gallbladder, bilateral adrenal glands are normal. Kidneys demonstrate stable chronic perinephric stranding and cortical thinning with lobulations essentially unchanged. Few bilateral renovascular calcifications noted without hydronephrosis. The enteric system is without obstruction or acute inflammatory process. Scattered colonic diverticula noted without acute diverticulitis. Pelvis demonstrates normal bladder and mildly prominent prostate gland. No ascites. No free air. No adenopathy. Atherosclerotic changes to the aorta without aneurysm or dissection. Incidental retroaortic left renal vein noted. Musculoskeletal structures demonstrate degenerative changes without acute abnormality. Impression: 1. Periumbilical subcutaneous edema and fatty infiltration suggest cellulitis. No drainable collection. A small 1 cm periumbilical fat-containing hernia is identified without associated fat stranding and without evidence for incarceration. 2. Chronic stable changes of the bilateral kidneys. 3. Scattered colonic diverticula without acute diverticulitis. 4. Mild prostatomegaly. Electronically Signed by Kennedy Walker MD 08/13/2019 02:58 P
[2019-08-13 15:10] LABS: INR 1.38; PROTHROMBIN TIME 16.7 SECONDS (11.8-14.0)
[2019-08-13 15:11] LABS: PARTIAL THROMBOPLASTIN TIME 32.7 SECONDS (25.0-38.4)
[2019-08-13] MEDS ORDERED: ceFAZolin SOD 1 GM in D5W MINI-BAG PLUS 50 ML IV ONE (15:15)
[2019-08-13] MEDS ORDERED: KEFL500C17 PO (15:16)
[2019-08-13 15:45] VITALS: BP 141/92
--- NOTE | 2019-08-15 10:40 | ED PDOC ---
Post-Departure Follow-Up radiology report faxed to Donna Valdez MD Aug 15, 2019 10:40
== END 2019-08-13 15:58 | disposition home or self-care (01) ==
LOC: M ED 12:36
DX: L03.311 Cellulitis of abdominal wall (principal); K42.9 Umbilical hernia without obstruction or gangrene; E66.9 Obesity, unspecified; R10.33 Periumbilical pain; Z87.891 Personal history of nicotine dependence; I50.9 Heart failure, unspecified; E78.00 Pure hypercholesterolemia, unspecified; I10 Essential (primary) hypertension; I48.91 Unspecified atrial fibrillation; G47.30 Sleep apnea, unspecified; K76.0 Fatty (change of) liver, not elsewhere classified; N40.0 Benign prostatic hyperplasia without lower urinary tract symptoms; E11.9 Type 2 diabetes mellitus without complications; Z79.4 Long term (current) use of insulin; Z79.01 Long term (current) use of anticoagulants; Z79.899 Other long term (current) drug therapy; Z91.013 Allergy to seafood; Z88.2 Allergy status to sulfonamides
CPT/HCPCS: 74177; 80048; 80076; 83690; 85025; 85610; 85730; 87040; 99284; J0690; Q9967

== ENCOUNTER → 2019-11-07 | Outpatient (CLI) | payer MEDICARE ==
[~2019-11-07] MED LIST changes: +KEFL500C17 PO
--- NOTE | 2019-11-08 10:09 | REP ---
MRI LEFT FOOT: TECHNIQUE: Multiple sequences obtained in the axial and coronal sagittal planes. There are nondisplaced fractures of the proximal 2nd and 3rd metatarsals. There is associated marrow edema. In the subcortical base of the second metatarsal, there is subchondral marrow edema and cystic change with similar findings in the adjacent middle cuneiform bone likely related to arthritic changes at this tarsometatarsal joint. Similar findings are seen at the joint between the medial cuneiform and base of first metacarpal with prominent subchondral cysts along that joint. Again this is likely related to arthritic change. Mild subchondral marrow is seen in the distal cuboid and adjacent bases of 4th and 5th metatarsals again likely related to arthritic change. Similar findings are seen at the joint between the lateral cuneiform and cuboid. There is some minimal subchondral marrow edema in the distal navicular bone and in the dome of the talus. There is no malalignment at the tarsometatarsal joints diffusely, with no evidence of Lisfranc injury. There is diffuse ill-defined soft tissue edema. Mild fluid is seen surrounding the flexor hallucis longus tendon in the hind foot. Plantar tendon is intact. Distal Achilles tendon is intact. The tendons and ligaments at the ankle appear intact. IMPRESSION: Nondisplaced fractures of proximal 2nd and 3rd metatarsals with associated marrow edema. There is also evidence of scattered arthritic changes at the tarsometatarsal joints and intertarsal joints with areas of subchondral marrow edema as discussed in detail above. No evidence Lisfranc injury. Diffuse ill-defined soft tissue edema. Electronically Signed by Servando Lo MD 11/08/2019 12:55 P
== END ==
LOC: M RAD 16:06
PROVIDERS: ATTEND Orthopaedic Surgery
DX: S92.335D Nondisplaced fracture of third metatarsal bone, left foot, subsequent encounter for fracture with routine healing (principal)

== ENCOUNTER 2020-01-22 14:39 | Inpatient (IN) | payer MEDICARE ==
[2020-01-22] MEDS ORDERED: ACETAMINOPHEN 325 MG TAB ONE (16:37)
[2020-01-22] MEDS ORDERED: ACETAMINOPHEN 325 MG TAB As Ordered ONE (16:37)
[2020-01-22] MEDS ORDERED: methylPREDNISolone 125MG 2ML VIAL ONE (16:37)
[2020-01-22] MEDS ORDERED: methylPREDNISolone 125MG 2ML VIAL As Ordered ONE (16:37)
[2020-01-22] MEDS ORDERED: ISOVUE-370 76% 100ML VIAL As Ordered ONE (17:24)
[2020-01-22] MEDS ORDERED: LevoFLOXacin 750MG/150ML IV BAG (J1956 PER 250MG) As Ordered ONE (19:39)
[2020-01-22] MEDS ORDERED: LevoFLOXacin 750MG/150ML IV BAG (J1956 PER 250MG) ONE (19:39)
[2020-01-23] MEDS ORDERED: cefTRIAXone SOD 1GM VIAL (J0696 PER 250MG) As Ordered ONE (01:25)
[2020-01-23] MEDS ORDERED: cefTRIAXone SOD 1GM VIAL (J0696 PER 250MG) ONE (01:25)
[2020-01-23] MEDS ORDERED: RAMELTEON 8 MG TAB (ROZEREM) As Ordered ONE (01:25)
[2020-01-23] MEDS ORDERED: RAMELTEON 8 MG TAB (ROZEREM) ONE (01:25)
[2020-01-23] MEDS ORDERED: RIVAROXABAN 20 MG TAB (XARELTO) ONE (01:25)
[2020-01-23] MEDS ORDERED: TORSEMIDE 20 MG TAB As Ordered ONE (01:25)
[2020-01-23] MEDS ORDERED: RIVAROXABAN 20 MG TAB (XARELTO) As Ordered ONE (01:25)
[2020-01-23] MEDS ORDERED: TORSEMIDE 20 MG TAB ONE (01:25)
[2020-01-23] MEDS ORDERED: GABAPENTIN 300 MG CAP ONE (02:44)
[2020-01-23] MEDS ORDERED: AZITHROMYCIN INJ 500MG VIAL (J0456 PER 500MG) As Ordered ONE (02:44)
[2020-01-23] MEDS ORDERED: ACETAMINOPHEN 650MG ER TAB (TYLENOL ARTHRITIS) ONE (02:44)
[2020-01-23] MEDS ORDERED: AZITHROMYCIN INJ 500MG VIAL (J0456 PER 500MG) ONE (02:44)
[2020-01-23] MEDS ORDERED: ACETAMINOPHEN 650MG ER TAB (TYLENOL ARTHRITIS) As Ordered ONE (03:06)
[2020-01-23] MEDS ORDERED: GABAPENTIN 300 MG CAP As Ordered ONE (06:37)
[2020-02-17 22:50] LABS: ALBUMIN 2.9 GM/DL (3.2-5.2); ALT/SGPT 49 U/L (12-78); BILIRUBIN,DIRECT < 0.1 MG/DL (0.0-0.2); BILIRUBIN,TOTAL 0.4 MG/DL (0.2-1.0); BLOOD UREA NITROGEN 14 MG/DL (7-18); CALCIUM LEVEL 8.7 MG/DL (8.8-10.2); CARBON DIOXIDE LEVEL 30 MEQ/L (21-32); CHLORIDE LEVEL 99 MEQ/L (98-107); CK-MB VALUE MASS 3.9 NG/ML (<3.6); CPK CREATINE PHOSPHOKINASE 1155 U/L (39-308); CREATININE FOR GFR 1.06 MG/DL (0.70-1.30); FREE T4 1.06 NG/DL (0.76-1.46); GLOMERULAR FILTRATION RATE > 60.0 (>49); GLUCOSE, FASTING 137 MG/DL (70-100); MB/CK RELATIVE INDEX 0.34 (< OR =4); NT-PRO BNP 150 PG/ML (<125); POTASSIUM SERUM 3.7 MEQ/L (3.5-5.1); SODIUM LEVEL 136 MEQ/L (136-145); THYROID STIMULATING HORMONE 0.702 uIU/ML (0.358-3.740); TROPONIN I < 0.02 NG/ML (< 0.10)
== END 2020-01-23 08:00 | disposition left against medical advice (07) | DRG 194 ==
LOC: M ED 14:39 → M MSPAV 14:40
PROVIDERS: ADMIT Internal Medicine; ATTEND Internal Medicine
DX: J18.9 Pneumonia, unspecified organism (principal); M62.82 Rhabdomyolysis; I11.0 Hypertensive heart disease with heart failure; E11.9 Type 2 diabetes mellitus without complications; I50.9 Heart failure, unspecified; E78.5 Hyperlipidemia, unspecified; G47.33 Obstructive sleep apnea (adult) (pediatric); Z79.899 Other long term (current) drug therapy

== ENCOUNTER → 2020-12-22 | Outpatient (CLI) | payer MEDICARE ==
[~2020-12-22] MED LIST changes: +AMLO1TAB24 PO; -AMLO5TAB6 PO; -ASPI81TA85 PO; +ASPI81TA86 PO
--- NOTE | 2020-12-22 16:11 | REP ---
INDICATION: RT UPPER LEG NUMBNESS AND GROIN PAIN. COMPARISON: 08/23/2017 TECHNIQUE: AP and frog-lateral views FINDINGS: There is mild to moderate asymmetric hip joint space narrowing with subchondral sclerosis. There is no buttressing or prominent marginal osteophytosis. There is no acute fracture, dislocation, or subluxation. IMPRESSION: Mild to moderate degenerative changes increased somewhat from the prior exam. <Electronically signed by Nate Farrar > 12/22/20 [id number]
--- NOTE | 2020-12-22 16:13 | REP ---
INDICATION: RT UPPER LEG NUMBNESS AND GROIN PAIN COMPARISON: 03/26/2006 TECHNIQUE: AP, lateral, bilateral oblique, and coned-down views of the lumbar spine. FINDINGS: Alignment and lordosis maintained. Vertebral bodies are intact. No acute fracture/compression injury or subluxation. Moderate to advanced multilevel degenerative changes include endplate sclerosis, disc space narrowing, marginal osteophyte formation and facet hypertrophy. Significant atherosclerotic changes to the visualized abdominal aorta measuring up to approximately 3.9 cm diameter. IMPRESSION: 1. Moderate to advanced multilevel degenerative spondylosis. No acute fracture/compression injury or subluxation. 2. 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 <Electronically signed by Kennedy Walker > 12/22/20 [id number]
== END ==
LOC: M WUC 11:57
PROVIDERS: ATTEND Nurse Practitioner Adult Health
DX: R20.0 Anesthesia of skin (principal); R10.32 Left lower quadrant pain; M47.816 Spondylosis without myelopathy or radiculopathy, lumbar region; I70.0 Atherosclerosis of aorta; I71.4 Abdominal aortic aneurysm, without rupture; M16.11 Unilateral primary osteoarthritis, right hip

== ENCOUNTER → 2021-04-21 | Outpatient (CLI) | payer MEDICARE ==
--- NOTE | 2021-04-21 16:13 | REPVR ---
PROCEDURE INFORMATION: Exam: MR Cervical Spine Without Contrast Exam date and time: 04/21/2021 12:07 PM Age: 70 years old Clinical indication: Neck pain; Additional info: Cervicalgia, R/O hnp vs stenosis TECHNIQUE: Imaging protocol: Multiplanar magnetic resonance images of the cervical spine without contrast. COMPARISON: CR SPINE LS COMPLETE 12/22/2020 3:04 PM FINDINGS: Image quality is degraded by motion. Vertebrae: There is reversal of the normal cervical lordosis. There is no fracture. There is multilevel moderate to severe intervertebral disc space loss. Spinal cord: Normal signal. No cord compression. C2-C3: There is a shallow disc osteophyte complex. There is mild facet hypertrophy. There is severe bilateral neural foraminal narrowing. There is mild canal stenosis. C3-C4: There is a diffuse disc osteophyte complex. There is mild facet hypertrophy. There is severe bilateral neural foraminal narrowing. There is mild canal stenosis. C4-C5: There is a diffuse disc osteophyte complex. There is mild facet hypertrophy. There is severe bilateral neural foraminal narrowing. There is mild canal stenosis. C5-C6: There is a diffuse disc osteophyte complex. There is moderate facet hypertrophy. There is severe bilateral neural foraminal narrowing. There is moderate canal stenosis. C6-C7: There is a diffuse disc osteophyte complex. There is moderate facet hypertrophy. There is severe right and moderate to severe left neural foraminal narrowing. There is mild canal stenosis. C7-T1: There is a diffuse disc osteophyte complex. There is severe facet hypertrophy. There is moderate to severe right and severe left neural foraminal narrowing. Soft tissues: Unremarkable. Vertebral arteries: Expected flow voids in the vertebral arteries. IMPRESSION: Degenerative disc disease and spondylosis. Changes contribute to multilevel severe neural foraminal narrowing. Electronically signed by: Ellen Handley On 04/21/2021 16:13:25 PM
== END ==
LOC: M PLAIMG 10:54
PROVIDERS: ATTEND Physician Assistant
DX: M50.30 Other cervical disc degeneration, unspecified cervical region (principal); M47.812 Spondylosis without myelopathy or radiculopathy, cervical region; M48.02 Spinal stenosis, cervical region

== ENCOUNTER → 2021-05-06 | Outpatient (REF) | payer MEDICARE ==
[2021-05-06 13:07] LABS: INR 1.1; PROTHROMBIN TIME 14.6 SECONDS (12.7-14.5)
== END ==
LOC: M LAB REF 12:28
PROVIDERS: ATTEND Nurse Practitioner Adult Health
DX: I48.91 Unspecified atrial fibrillation (principal); M19.012 Primary osteoarthritis, left shoulder

== ENCOUNTER → 2021-05-11 | Outpatient (CLI) | payer MEDICARE ==
[~2021-05-11] MED LIST changes: +ISOVUE-300 61% 50ML VIAL As Ordered ONE; +LIDOCAINE 1% MDV 20ML VIAL As Ordered ONE; +methylPREDNISolone SUSP 40MG/ML 1ML VIAL (DEPO MEDROL) As Ordered ONE
--- NOTE | 2021-05-12 08:18 | REP ---
INDICATION: OSTEOARTHRITIS CINDI SHOULDERS. COMPARISON: None TECHNIQUE: The procedure was performed by CHEYENNE Razo, under the direct supervision of Dr Segura. The benefits and risks of the procedure were explained to the patient, and an informed consent was obtained. Directly prior to the start of the procedure, a formal time-out was completed in the procedure room. The left shoulder joint space was localized using fluoroscopic guidance. The skin was prepped and draped in a sterile fashion. Approximately 5 mL of 1% Lidocaine 10 mg/ml was used as a local anesthetic. Using fluoroscopic guidance, a #22 gauge spinal needle was inserted and advanced into the left shoulder joint space. Approximately 2 mL of Isovue 300 was injected to verify placement. Seven mL of a solution containing 5 mL 1% lidocaine 10 mg/ml and 2 mL Depo-Medrol 40 mg/mL was injected into the joint space. The needle was removed and hemostasis was achieved. FINDINGS: The patient tolerated the procedure well and there were no immediate complications. IMPRESSION: 1. Technically successful left shoulder injection. 0.1 minutes of fluoroscopy time was utilized for this procedure. Some fluoroscopic images are performed with last image hold technology. These images require no additional radiation. <Electronically signed by Deysi Mary > 05/11/21 [id number] <Electronically signed by Shun Segura > 05/12/21 [id number]
== END ==
LOC: M RADPRO 12:37
PROVIDERS: ATTEND Physician Assistant
DX: M19.012 Primary osteoarthritis, left shoulder (principal)
CPT/HCPCS: 20610; 77002; J1030; Q9967

== ENCOUNTER → 2021-05-25 | Outpatient (CLI) | payer MEDICARE | LOC: M RADPRO 12:25 | PROVIDERS: ATTEND Physician Assistant | DX: M19.011 Primary osteoarthritis, right shoulder (principal) | CPT/HCPCS: 20610; 77002; J1030; Q9967 ==

== ENCOUNTER → 2021-09-21 | Outpatient (CLI) | payer MEDICARE | LOC: M RADPRO 11:22 | PROVIDERS: ATTEND Physician Assistant | DX: M19.012 Primary osteoarthritis, left shoulder (principal) | CPT/HCPCS: 20610; 77002; J1030; Q9967 ==

== ENCOUNTER → 2021-10-15 | Outpatient (CLI) | payer MEDICARE | LOC: M RADPRO 14:59 | PROVIDERS: ATTEND Physician Assistant | DX: M19.011 Primary osteoarthritis, right shoulder (principal) | CPT/HCPCS: 20610; 77002; J1030; Q9967 ==

== ENCOUNTER → 2022-04-01 | Outpatient (CLI) | payer MEDICARE ==
[~2022-04-01] MED LIST changes: -ISOVUE-300 61% 50ML VIAL As Ordered ONE; -LIDOCAINE 1% MDV 20ML VIAL As Ordered ONE; +NOVOINJ3 SC; +PRAV20TA2 PO; -TRES1INJ; +TRES1INJ SC; -methylPREDNISolone SUSP 40MG/ML 1ML VIAL (DEPO MEDROL) As Ordered ONE
== END ==
LOC: M LABSMTC 09:28
PROVIDERS: ATTEND Anesthesiology
DX: Z01.812 Encounter for preprocedural laboratory examination (principal); Z20.822 Contact with and (suspected) exposure to COVID-19

== ENCOUNTER 2022-04-06 06:24 | Day surgery (SDC) | payer MEDICARE ==
[~2022-04-06] VITALS: Ht 180.3 cm; Wt 141.0 kg
[~2022-04-06 06:24] MED LIST changes: +BSS IRR 500ML/OMIDRIA 4ML IRR BAG (OR ONLY) IO ONE; +CEFUROXIME 1MG/0.1ML INTRACAMERAL INJ ICAM ONE; +OFLOXACIN 0.3 % (OCUFLOX) OPTH SOL 5ML OD SCH; +PHENYLEPHRINE 2.5% OPHTH SOL 2ML OD SCH; +PROPARACAINE 0.5% OPHTH SOL 15ML OD ONE; +TROPICAMIDE 1% OPHTH SOLN 2ML OD SCH
[2022-04-06] MEDS ORDERED: LIDOCAINE 1% SDV 5ML VIAL As Ordered ONE (06:39)
[2022-04-06] MEDS ORDERED: ACETYLCHOLINE OPHTH SOLN 1% 2ML (MIOCHOL-E) As Ordered ONE (06:39)
[2022-04-06] MEDS ORDERED: MIDAZOLAM INJ 2MG/2ML VIAL (J2250 PER 1MG) As Ordered ONE (07:32)
[2022-04-06] MEDS ORDERED: fentaNYL 100 MCG/2 ML INJECTION As Ordered ONE (07:32)
[2022-04-06] MEDS ORDERED: CEFUROXIME 1MG/0.1ML INTRACAMERAL INJ As Ordered ONE (07:35)
[2022-04-06] MEDS ORDERED: BSS IRR 500ML/OMIDRIA 4ML IRR BAG (OR ONLY) As Ordered ONE (07:35)
[2022-04-06 09:12] VITALS: BP 146/67
== END 2022-04-06 09:33 | disposition home or self-care (01) ==
LOC: M SDC 06:24
PROVIDERS: ATTEND Ophthalmology
DX: H25.11 Age-related nuclear cataract, right eye (principal); I48.91 Unspecified atrial fibrillation; I25.10 Atherosclerotic heart disease of native coronary artery without angina pectoris; I10 Essential (primary) hypertension; E78.5 Hyperlipidemia, unspecified; E11.9 Type 2 diabetes mellitus without complications; K76.0 Fatty (change of) liver, not elsewhere classified; L40.9 Psoriasis, unspecified; G47.33 Obstructive sleep apnea (adult) (pediatric); Z79.01 Long term (current) use of anticoagulants; Z79.4 Long term (current) use of insulin; Z79.899 Other long term (current) drug therapy; Z88.2 Allergy status to sulfonamides; N40.0 Benign prostatic hyperplasia without lower urinary tract symptoms
CPT/HCPCS: 66984; J0697; J1097; J2250; J3010; V2632

== ENCOUNTER → 2022-08-03 | Outpatient (CLI) | payer MEDICARE ==
[~2022-08-03] MED LIST changes: -BSS IRR 500ML/OMIDRIA 4ML IRR BAG (OR ONLY) IO ONE; -CEFUROXIME 1MG/0.1ML INTRACAMERAL INJ ICAM ONE; -CILO50TA PO; +CILO50TA2 PO; -OFLOXACIN 0.3 % (OCUFLOX) OPTH SOL 5ML OD SCH; -PHENYLEPHRINE 2.5% OPHTH SOL 2ML OD SCH; -PROPARACAINE 0.5% OPHTH SOL 15ML OD ONE; -TROPICAMIDE 1% OPHTH SOLN 2ML OD SCH
[2022-08-03 17:22] LABS: BASO # 0.1 10^3/uL (0.0-0.2); BASO % 0.5 % (0.0-1.0); EOS # 0.3 10^3/uL (0.0-0.5); EOS % 2.2 % (0.0-3.0); HEMATOCRIT 41.8 % (42.0-52.0); HEMOGLOBIN 13.3 g/dl (13.5-17.5); LYMPH # 1.9 10^3/uL (1.5-5.0); LYMPH % 15.8 % (24.0-44.0); MEAN CORPUSCULAR HEMOGLOBIN 28.3 pg (27.0-33.0); MEAN CORPUSCULAR HGB CONC 31.8 g/dl (32.0-36.5); MEAN CORPUSCULAR VOLUME 88.9 fl (80.0-96.0); MONO # 1.3 10^3/uL (0.0-0.8); MONO % 10.4 % (2.0-8.0); NEUTROPHILS # 8.5 10^3/uL (1.5-8.5); NEUTROPHILS % 70.6 % (36.0-66.0); PLATELET COUNT, AUTOMATED 270 10^3/uL (150-450)
[2022-08-03 17:44] LABS: URIC ACID 11.8 MG/DL (3.7-9.2)
[2022-08-03 17:47] LABS: C REACTIVE PROTEIN QUANTITATIV 19.2 MG/DL (<1.0)
[2022-08-03 18:08] LABS: ERYTHROCYTE SEDIMENTATION RATE 122 mm/hr (0-20)
== END ==
LOC: M PLALAB 14:23
PROVIDERS: ATTEND Physician Assistant Surgical
DX: M25.572 Pain in left ankle and joints of left foot (principal)

== ENCOUNTER → 2022-08-20 | Outpatient (CLI) | payer MEDICARE ==
[~2022-08-20] MED LIST changes: +INSU100I6 SC; +ISOVUE-300 61% 100ML VIAL ONE; -LEVE1INJ5 SC; +LIDOCAINE 1% MDV 20ML VIAL ONE; +methylPREDNISolone SUSP 40MG/ML 1ML VIAL (DEPO MEDROL) ONE
== END ==
LOC: M PLAIMG 14:28
PROVIDERS: ATTEND Physician Assistant
DX: M19.012 Primary osteoarthritis, left shoulder (principal)
CPT/HCPCS: 20610; 76000; J1030; Q9967

== ENCOUNTER → 2022-09-10 | Outpatient (CLI) | payer MEDICARE ==
[~2022-09-10] MED LIST changes: -ISOVUE-300 61% 100ML VIAL ONE; -LIDOCAINE 1% MDV 20ML VIAL ONE; -methylPREDNISolone SUSP 40MG/ML 1ML VIAL (DEPO MEDROL) ONE
== END ==
LOC: M PLAIMG 14:36
PROVIDERS: ATTEND Physician Assistant
DX: M19.011 Primary osteoarthritis, right shoulder (principal)

== ENCOUNTER → 2022-09-13 | Outpatient (REF) | payer MEDICARE ==
[2022-09-13 17:28] LABS: C REACTIVE PROTEIN QUANTITATIV 1.2 MG/DL (<1.0); PERCENT SATURATION 9.6 % (19.7-50.0)
[2022-09-13 17:30] LABS: FERRITIN 21.8 NG/ML (10.5-307.3)
[2022-09-13 17:37] LABS: HEMATOCRIT 44.4 % (42.0-52.0)
== END ==
LOC: M LAB REF 16:21
PROVIDERS: ATTEND Nurse Practitioner Adult Health
DX: R70.0 Elevated erythrocyte sedimentation rate (principal); D50.9 Iron deficiency anemia, unspecified

== ENCOUNTER 2022-10-15 08:31 | Emergency (ER) | payer MEDICARE ==
[~2022-10-15] VITALS: Ht 180.3 cm; Wt 136.4 kg
[2022-10-15 09:27] LABS: BASO # 0.1 10^3/uL (0.0-0.2); BASO % 0.4 % (0.0-1.0); EOS # 0.1 10^3/uL (0.0-0.5); EOS % 0.6 % (0.0-3.0); HEMATOCRIT 40.8 % (42.0-52.0); HEMOGLOBIN 13.2 g/dl (13.5-17.5); LYMPH # 0.7 10^3/uL (1.5-5.0); LYMPH % 3.9 % (24.0-44.0); MEAN CORPUSCULAR HEMOGLOBIN 28.3 pg (27.0-33.0); MEAN CORPUSCULAR HGB CONC 32.4 g/dl (32.0-36.5); MEAN CORPUSCULAR VOLUME 87.4 fl (80.0-96.0); MONO % 5.9 % (2.0-8.0); NEUTROPHILS # 15.5 10^3/uL (1.5-8.5); NEUTROPHILS % 88.6 % (36.0-66.0); PLATELET COUNT, AUTOMATED 252 10^3/uL (150-450); RED BLOOD COUNT 4.67 10^6/uL (4.30-6.10); WHITE BLOOD COUNT 17.5 10^3/uL (4.0-10.0)
[2022-10-15 09:55] LABS: CK-MB VALUE MASS 3.2 NG/ML (<3.6)
[2022-10-15 09:57] LABS: ALBUMIN 3.6 G/DL (3.2-5.2); BILIRUBIN,DIRECT 0.3 MG/DL (<0.4); BILIRUBIN,TOTAL 0.8 MG/DL (0.3-1.2); CALCIUM LEVEL 9.4 MG/DL (8.3-10.6); CREATININE FOR GFR 1.32 MG/DL (0.70-1.30); GLOMERULAR FILTRATION RATE 57.1 (>42); MB/CK RELATIVE INDEX 0.71 (< OR =4); POTASSIUM SERUM 3.9 MMOL/L (3.5-5.1); TOTAL PROTEIN 6.7 G/DL (5.7-8.2)
[2022-10-15] MEDS ORDERED: ISOVUE-370 76% 100ML VIAL As Ordered ONE (11:12)
[2022-10-15] MEDS ORDERED: METOPROLOL TART 50 MG TAB PO ONE (12:10)
[2022-10-15 12:14] VITALS: BP 136/69
[2022-10-15 12:42] VITALS: BP 134/71
[2022-10-15] MEDS ORDERED: LOPR1TAB6 PO (13:01)
== END 2022-10-15 14:06 | disposition home or self-care (01) ==
LOC: M ED 08:31
DX: I48.91 Unspecified atrial fibrillation (principal); R07.81 Pleurodynia; E11.9 Type 2 diabetes mellitus without complications; J44.9 Chronic obstructive pulmonary disease, unspecified; E78.5 Hyperlipidemia, unspecified; K75.81 Nonalcoholic steatohepatitis (NASH); E66.01 Morbid (severe) obesity due to excess calories; G47.33 Obstructive sleep apnea (adult) (pediatric); Z87.891 Personal history of nicotine dependence; Z82.49 Family history of ischemic heart disease and other diseases of the circulatory system; Z79.4 Long term (current) use of insulin; Z79.899 Other long term (current) drug therapy; Z88.2 Allergy status to sulfonamides; Z91.013 Allergy to seafood
CPT/HCPCS: 71045; 71275; 80048; 80076; 82550; 82553; 83605; 83880; 84484; 85025; 87040; 87486; 87581; 87633; 87798; 93005; 93041; 94760; 99284; Q9967

== ENCOUNTER 2022-11-07 23:37 | Emergency (ER) | payer MEDICARE ==
[~2022-11-07] VITALS: Ht 180.3 cm; Wt 135.0 kg
[~2022-11-07 23:37] MED LIST changes: +LOPR1TAB6 PO
[2022-11-08 01:47] LABS: BASO # 0.1 10^3/uL (0.0-0.2); BASO % 0.4 % (0.0-1.0); EOS # 0.2 10^3/uL (0.0-0.5); EOS % 1.4 % (0.0-3.0); HEMOGLOBIN 13.2 g/dl (13.5-17.5); LYMPH # 1.4 10^3/uL (1.5-5.0); LYMPH % 12.2 % (24.0-44.0); MEAN CORPUSCULAR HEMOGLOBIN 28.3 pg (27.0-33.0); MEAN CORPUSCULAR HGB CONC 32.2 g/dl (32.0-36.5); MONO % 8.5 % (2.0-8.0); NEUTROPHILS # 9.1 10^3/uL (1.5-8.5); NEUTROPHILS % 77.1 % (36.0-66.0); PLATELET COUNT, AUTOMATED 243 10^3/uL (150-450); RED BLOOD COUNT 4.66 10^6/uL (4.30-6.10); WHITE BLOOD COUNT 11.9 10^3/uL (4.0-10.0)
[2022-11-08 02:18] LABS: ALBUMIN 3.7 G/DL (3.2-5.2); BILIRUBIN,TOTAL 0.7 MG/DL (0.3-1.2); CALCIUM LEVEL 9.7 MG/DL (8.3-10.6); CREATININE FOR GFR 1.35 MG/DL (0.70-1.30); GLOMERULAR FILTRATION RATE 55.5 (>42); TOTAL PROTEIN 7.2 G/DL (5.7-8.2)
[2022-11-08 02:34] LABS: URIC ACID 11.8 MG/DL (3.7-9.2)
[2022-11-08] MEDS ORDERED: ACETAMINOPHEN TAB 650MG DOSE (2X325MG) PO ONE (03:00)
[2022-11-08] MEDS ORDERED: KETOROLAC 60MG 2ML VIAL IM ONE (04:40)
[2022-11-08] MEDS ORDERED: MEDR4PAK PO (04:41)
[2022-11-08] MEDS ORDERED: methylPREDNISolone 125MG 2ML VIAL IV ONE (04:55)
[2022-11-08] MEDS ORDERED: PRED20TA PO ×2 (05:15→05:27)
[2022-11-08] MEDS ORDERED: TORS20TA2 PO (05:27)
[2022-11-08 05:38] VITALS: BP 178/89
== END 2022-11-08 05:46 | disposition home or self-care (01) ==
LOC: M ED 23:37
DX: M10.9 Gout, unspecified (principal); I48.91 Unspecified atrial fibrillation; I50.9 Heart failure, unspecified; E11.9 Type 2 diabetes mellitus without complications; I10 Essential (primary) hypertension; E78.5 Hyperlipidemia, unspecified; N40.0 Benign prostatic hyperplasia without lower urinary tract symptoms; Z79.4 Long term (current) use of insulin; Z79.02 Long term (current) use of antithrombotics/antiplatelets; Z79.899 Other long term (current) drug therapy; Z88.2 Allergy status to sulfonamides; Z91.013 Allergy to seafood
CPT/HCPCS: 80053; 84550; 85025; 99283; J1885; J2930

== ENCOUNTER 2023-03-30 08:58 | Day surgery (SDC) | payer MEDICARE ==
[~2023-03-30] VITALS: Ht 180.3 cm; Wt 136.7 kg
[~2023-03-30 08:58] MED LIST changes: +MEDR4PAK PO; +NS 1,000 ML IV ONE; +PRED20TA PO
[2023-03-30 11:42] VITALS: BP 140/96; TEMP 97.5; O2SAT 92
== END 2023-03-30 11:47 | disposition home or self-care (01) ==
LOC: M OPP 08:58
PROVIDERS: ATTEND Internal Medicine Gastroenterology
DX: Z86.010 Personal history of colon polyps (principal); D12.6 Benign neoplasm of colon, unspecified; K64.0 First degree hemorrhoids; K57.30 Diverticulosis of large intestine without perforation or abscess without bleeding; I48.91 Unspecified atrial fibrillation; I25.10 Atherosclerotic heart disease of native coronary artery without angina pectoris; I10 Essential (primary) hypertension; E78.5 Hyperlipidemia, unspecified; E11.9 Type 2 diabetes mellitus without complications; K76.0 Fatty (change of) liver, not elsewhere classified; M19.90 Unspecified osteoarthritis, unspecified site; J44.9 Chronic obstructive pulmonary disease, unspecified; Z87.891 Personal history of nicotine dependence; Z96.653 Presence of artificial knee joint, bilateral; Z88.2 Allergy status to sulfonamides; Z91.013 Allergy to seafood; Z79.01 Long term (current) use of anticoagulants; Z79.4 Long term (current) use of insulin; Z79.84 Long term (current) use of oral hypoglycemic drugs; Z79.85 Long-term (current) use of injectable non-insulin antidiabetic drugs; Z79.899 Other long term (current) drug therapy

== ENCOUNTER → 2023-04-11 | Outpatient (REF) | payer MEDICARE, OTHER ==
[~2023-04-11] MED LIST changes: -NS 1,000 ML IV ONE; +PEN-308 SC; -PEN1MIS21 SC
== END ==
LOC: M LAB REF 16:18
PROVIDERS: ATTEND Physician Assistant Medical
DX: I50.32 Chronic diastolic (congestive) heart failure (principal)

== ENCOUNTER → 2023-05-09 | Outpatient (CLI) | payer MEDICARE | LOC: M RAD 10:22 | PROVIDERS: ATTEND Physician Assistant | DX: I65.23 Occlusion and stenosis of bilateral carotid arteries (principal) ==

== ENCOUNTER → 2023-05-24 | Outpatient (CLI) | payer MEDICARE | LOC: M WUC 13:22 | PROVIDERS: ATTEND Nurse Practitioner Adult Health | DX: I50.32 Chronic diastolic (congestive) heart failure (principal); I13.0 Hypertensive heart and chronic kidney disease with heart failure and stage 1 through stage 4 chronic kidney disease, or unspecified chronic kidney disease; J44.9 Chronic obstructive pulmonary disease, unspecified; N18.9 Chronic kidney disease, unspecified; J98.11 Atelectasis; J98.4 Other disorders of lung ==

== ENCOUNTER → 2023-08-16 | Outpatient (CLI) | payer MEDICARE | LOC: M SOG 07:49 | PROVIDERS: ATTEND Orthopaedic Surgery | DX: M25.511 Pain in right shoulder (principal); M85.811 Other specified disorders of bone density and structure, right shoulder; M19.011 Primary osteoarthritis, right shoulder ==

== ENCOUNTER → 2023-09-19 | Outpatient (CLI) | payer MEDICARE | LOC: M SOG 10:48 | PROVIDERS: ATTEND Physician Assistant | DX: M25.512 Pain in left shoulder (principal); M19.012 Primary osteoarthritis, left shoulder ==

== ENCOUNTER → 2023-09-27 | Outpatient (REF) | payer MEDICARE ==
[2023-09-28 18:21] LABS: TOTAL PROTEIN,RANDOM URINE 66.7 MG/DL (0.0-14.0)
== END ==
LOC: M LAB REF 16:55
PROVIDERS: ATTEND Internal Medicine Nephrology
DX: N18.32 Chronic kidney disease, stage 3b (principal)

== ENCOUNTER → 2023-11-01 | Outpatient (CLI) | payer MEDICARE | LOC: M RAD 08:07 | PROVIDERS: ATTEND Orthopaedic Surgery Hand Surgery | DX: M25.512 Pain in left shoulder (principal); M19.011 Primary osteoarthritis, right shoulder; M19.012 Primary osteoarthritis, left shoulder; M85.612 Other cyst of bone, left shoulder ==

== ENCOUNTER → 2023-11-22 | Outpatient (CLI) | payer MEDICARE ==
[~2023-11-22] MED LIST changes: +ALBU8.5H INH; +BUDE10.7 INH; +COLC0.6T47 PO; +GABA-282 PO; +HYDR-4571 PO; +LOSA50TA28 PO; +METO50TA7 PO; +XARE15TA PO
== END ==
LOC: M WUC 09:06
PROVIDERS: ATTEND Nurse Practitioner Family
DX: M25.532 Pain in left wrist (principal); M19.031 Primary osteoarthritis, right wrist

== ENCOUNTER 2023-11-30 06:01 | Observation (INO) | payer MEDICARE ==
[~2023-11-30] VITALS: Ht 180.3 cm; Wt 138.5 kg
[2023-11-30] VITALS (8 sets, daily range): BP systolic 128–145; BP diastolic 76–87; TEMP 97.7–98.1; O2SAT 92–96
[2023-11-30] MEDS ORDERED: DEXTROSE 50% 50ML SYRINGE IV PRN (06:25)
[2023-11-30] MEDS ORDERED: GLUCOSE 4 GM CHEW PO PRN (06:25)
[2023-11-30] MEDS ORDERED: GLUCAGON INJ 1MG VIAL SC PRN (06:25)
[2023-11-30] MEDS ORDERED: INSULIN LISPRO (NovoLOG) PER UNIT SC PRN (06:25)
[2023-11-30] MEDS: dexAMETHasone 10MG/1ML VIAL PRES.FREE PN ONE (07:05)
[2023-11-30] MEDS: LIDOCAINE 1% SDV 5ML VIAL PN ONE (07:05)
[2023-11-30] MEDS: ROPIvacaine 0.5% 30ML VIAL PN ONE (07:05)
[2023-11-30] MEDS: EPINEPHrine INJ 1 MG/ML 1ML AMP PN ONE (07:05)
[2023-11-30] MEDS: LR 1,000 ML IV SCH ×2 (07:22→11:00)
[2023-11-30] MEDS ORDERED: ceFAZolin SOD 3 GM in IV 1 EA IV ONE (07:25)
[2023-11-30] MEDS ORDERED: CLOT1CRE71 TD (07:35)
[2023-11-30] MEDS: fentaNYL 100 MCG/2 ML INJECTION IV PRN (07:36)
[2023-11-30] MEDS: MIDAZOLAM INJ 2MG/2ML VIAL IV PRN (07:36)
[2023-11-30] MEDS ORDERED: AMLO1TAB24 PO (07:38)
[2023-11-30] MEDS ORDERED: HOME MED LIST COMPLETE! XX SCH (07:40)
[2023-11-30] MEDS: ceFAZolin SOD 2 GM in IV 1 EA IV ONE (08:00)
[2023-11-30] MEDS: ceFAZolin SOD 1 GM in D5W MINI-BAG PLUS 50 ML IV ONE (08:15)
[2023-11-30] MEDS: TRANEXAMIC ACID 100 MG/ML 10ML VIAL As Ordered ONE (08:39)
[2023-11-30] MEDS: DOCUSATE SODIUM 100MG CAPSULE PO SCH (09:00)
[2023-11-30] MEDS: LIDOCAINE W/EPINEPHRINE 1% 20ML VIAL As Ordered ONE (09:01)
[2023-11-30] MEDS ORDERED: ONDANSETRON 4MG 2ML VIAL As Ordered ONE (10:30)
[2023-11-30] MEDS ORDERED: propofoL 200 MG/20 ML VIAL As Ordered ONE (10:30)
[2023-11-30] MEDS ORDERED: SUGAMMADEX SODIUM 500 MG/5 ML VIAL (BRIDION) As Ordered ONE (10:30)
[2023-11-30] MEDS ORDERED: CALCIUM CHLORIDE 10% 1 GM/10 ML SYR As Ordered ONE (10:30)
[2023-11-30] MEDS ORDERED: ACETAMINOPHEN 1000MG 100ML IV BAG As Ordered ONE (10:30)
[2023-11-30] MEDS ORDERED: ePHEDrine SULFATE 25 MG/5 ML(5MG/ML) SYRINGE As Ordered ONE (10:30)
[2023-11-30] MEDS ORDERED: PHENYLEPHRINE 10MG/ML 1ML VIAL As Ordered ONE (10:30)
[2023-11-30] MEDS ORDERED: KETOROLAC 60MG 2ML VIAL As Ordered ONE (10:30)
[2023-11-30] MEDS ORDERED: PHENYLephrine 500MCG 5ML (100MCG/ML) SYRINGE As Ordered ONE (10:30)
[2023-11-30] MEDS ORDERED: LIDOCAINE 2% 100MG/5ML SDV (FOR ANES.) As Ordered ONE (10:30)
[2023-11-30] MEDS ORDERED: fentaNYL 100 MCG/2 ML INJECTION As Ordered ONE (10:31)
[2023-11-30] MEDS ORDERED: VASOPRESSIN INJ 20UNITS/ML 1ML VIAL As Ordered ONE (10:31)
[2023-11-30] MEDS ORDERED: ROCURONIUM BROMIDE 50MG/5ML VIAL As Ordered ONE (10:35)
[2023-11-30] MEDS: VANCOMYCIN 1000MG/20ML VIAL As Ordered ONE (10:37)
[2023-11-30] MEDS: VANCOMYCIN 500MG/10ML VIAL As Ordered ONE (10:37)
[2023-11-30] MEDS ORDERED: LACRILUBE (AKWA TEARS) OPHTH OINT 3.5GM As Ordered ONE (10:54)
[2023-11-30] MEDS ORDERED: fentaNYL 100 MCG/2 ML INJECTION IV PRN (11:00)
[2023-11-30] MEDS ORDERED: ONDANSETRON 4MG 2ML VIAL IV PRN ×2 (11:00→11:35)
[2023-11-30] MEDS ORDERED: HYDROMORPHONE HCL 0.5 MG/ 0.5 ML SYRINGE IV PRN (11:00)
[2023-11-30] MEDS ORDERED: oxyCODONE 5MG TAB PO PRN ×2 (11:00→11:35)
[2023-11-30] MEDS ORDERED: HYDROmorphone 2 MG TAB PO PRN (11:35)
[2023-11-30] MEDS ORDERED: SENNA 8.6 MG TAB (SENOKOT) PO PRN (11:35)
[2023-11-30] MEDS ORDERED: zolPIDEM TARTRATE 5 MG TAB PO PRN (11:35)
[2023-11-30] MEDS ORDERED: diphenhydrAMINE 50MG/ML VIAL IV PRN (11:35)
[2023-11-30] MEDS ORDERED: ACETAMINOPHEN TAB 650MG DOSE (2X325MG) PO PRN (11:35)
[2023-11-30] MEDS ORDERED: MORPHINE 4 MG/ML 1ML VIAL IV PRN (11:35)
[2023-11-30] MEDS: IPRATROPIUM 0.5MG/ALBUTEROL 2.5MG INH SOL UD 3ML (DUONEB) NEB PRN (15:00)
[2023-11-30] MEDS: GABAPENTIN 300 MG CAP PO SCH (16:11)
[2023-11-30] MEDS: PRAVASTATIN 20 MG TAB PO SCH (16:11)
[2023-11-30] MEDS: ceFAZolin SOD 2 GM in IV 1 EA IV SCH (16:11)
[2023-11-30] MEDS ORDERED: IBUPROFEN 600MG TAB PO PRN (17:00)
[2023-11-30] MEDS: INSULIN LISPRO (NovoLOG) PER UNIT SC SCH ×2 (17:29→21:47)
[2023-11-30] MEDS: SYMBICORT 160/4.5MCG INHALER 6GM INH SCH (21:41)
[2023-11-30] MEDS: METOPROLOL TART 50 MG TAB PO SCH (21:47)
[2023-12-01 04:06] VITALS: BP 141/85; TEMP 97.2; O2SAT 93
[2023-12-01 06:56] LABS: HEMATOCRIT 39.1 % (42.0-52.0); MEAN CORPUSCULAR HEMOGLOBIN 30.9 pg (27.0-33.0); MEAN CORPUSCULAR HGB CONC 33.2 g/dl (32.0-36.5); MEAN CORPUSCULAR VOLUME 92.9 fl (80.0-96.0); PLATELET COUNT, AUTOMATED 230 10^3/uL (150-450); RED BLOOD COUNT 4.21 10^6/uL (4.30-6.10); WHITE BLOOD COUNT 15.6 10^3/uL (4.0-10.0)
[2023-12-01 07:18] LABS: CALCIUM LEVEL 10.4 MG/DL (8.3-10.6); CREATININE FOR GFR 1.95 MG/DL (0.70-1.30); GLOMERULAR FILTRATION RATE 36.2 (>42); POTASSIUM SERUM 4.4 MMOL/L (3.5-5.1)
[2023-12-01] MEDS ORDERED: HYDR-4571 PO (07:41)
[2023-12-01 08:00] VITALS: BP 119/66; TEMP 98.2; O2SAT 92
[2023-12-01] MEDS: TIOTROPIUM INHALER/CAPSULE (SPIRIVA) INH SCH (08:05)
[2023-12-01 08:13] VITALS: BP 119/66
[2023-12-01] MEDS: amLODIPine 5 MG TAB PO SCH (08:13)
[2023-12-01] MEDS: LEVEMIR (INSULIN DETEMIR) 1 UNITS/0.01ML SC SCH (08:16)
[2023-12-01] MEDS ORDERED: ENOXAPARIN 40MG/0.4ML SYRINGE (J1650 PER 10MG) SC SCH (09:00)
[2023-12-01] MEDS ORDERED: RIVAROXABAN 15MG TAB (XARELTO) PO SCH (18:00)
== END 2023-12-01 09:50 | disposition home or self-care (01) ==
LOC: M SDC 06:01 → M RR INP 06:02 → M MS5PR 13:05
PROVIDERS: ADMIT Internal Medicine Nephrology; ATTEND Orthopaedic Surgery Hand Surgery
DX: M19.012 Primary osteoarthritis, left shoulder (principal); I11.9 Hypertensive heart disease without heart failure; E78.5 Hyperlipidemia, unspecified; G47.33 Obstructive sleep apnea (adult) (pediatric); E66.01 Morbid (severe) obesity due to excess calories; J44.9 Chronic obstructive pulmonary disease, unspecified; I65.29 Occlusion and stenosis of unspecified carotid artery; Z79.01 Long term (current) use of anticoagulants; I48.20 Chronic atrial fibrillation, unspecified; N18.30 Chronic kidney disease, stage 3 unspecified; K76.0 Fatty (change of) liver, not elsewhere classified; M10.9 Gout, unspecified; I50.30 Unspecified diastolic (congestive) heart failure; Z88.2 Allergy status to sulfonamides; Z91.013 Allergy to seafood; Z79.84 Long term (current) use of oral hypoglycemic drugs; Z79.4 Long term (current) use of insulin; Z79.899 Other long term (current) drug therapy
CPT/HCPCS: 23472; 36415; 73020; 80048; 85027; 88300; 94640; 96365; 96366; C1713; C1776; G0378; J0131; J0690; J1100; J1815; J1885; J2250; J2371; J2405; J2598; J3010; J3370

== ENCOUNTER → 2023-12-12 | Outpatient (CLI) | payer MEDICARE ==
[~2023-12-12] MED LIST changes: +CLOT1CRE71 TD
== END ==
LOC: M SOG 11:12
PROVIDERS: ATTEND Physician Assistant
DX: M25.512 Pain in left shoulder (principal); Z47.1 Aftercare following joint replacement surgery; Z96.612 Presence of left artificial shoulder joint

== ENCOUNTER 2023-12-22 13:59 | Outpatient (RCR) | payer MEDICARE | END 2023-12-25 | LOC: M PT 13:59 | PROVIDERS: ATTEND Physician Assistant | DX: Z96.612 Presence of left artificial shoulder joint (principal); Z47.89 Encounter for other orthopedic aftercare ==

== ENCOUNTER 2023-12-30 15:17 | Emergency (ER) | payer MEDICARE ==
[~2023-12-30] VITALS: Ht 180.3 cm; Wt 136.4 kg
[~2023-12-30 15:17] MED LIST changes: +ALFU10TA23 PO; -ALFU10TA3 PO
[2023-12-30] MEDS: predniSONE 20 MG TAB PO ONE (17:51)
[2023-12-30] MEDS ORDERED: PRED20TA PO (17:59)
[2023-12-30 18:14] VITALS: BP 177/88; TEMP 98; O2SAT 94
== END 2023-12-30 19:05 | disposition home or self-care (01) ==
LOC: M ED 15:17
DX: U07.1 COVID-19 (principal); J44.1 Chronic obstructive pulmonary disease with (acute) exacerbation; E11.9 Type 2 diabetes mellitus without complications; I11.0 Hypertensive heart disease with heart failure; Z79.01 Long term (current) use of anticoagulants; Z79.4 Long term (current) use of insulin; Z79.899 Other long term (current) drug therapy; Z88.2 Allergy status to sulfonamides; Z91.013 Allergy to seafood
CPT/HCPCS: 71046; 87486; 87581; 87633; 87798; 93005; 99284; J7512

== ENCOUNTER → 2024-01-03 | Outpatient (CLI) | payer MEDICARE | LOC: M SOG 07:52 | PROVIDERS: ATTEND Physician Assistant | DX: Z96.612 Presence of left artificial shoulder joint (principal); Z53.8 Procedure and treatment not carried out for other reasons ==

== ENCOUNTER 2024-01-19 13:31 | Outpatient (RCR) | payer MEDICARE ==
[~2024-01-19 13:31] MED LIST changes: +BETA1OI TOP; -CLOT1CRE71 TD; +CLOT1CRE71 TOP
[2024-01-24] MEDS ORDERED: XARE15TA PO (05:18)
[2024-01-24] MEDS ORDERED: CYCL5TAB PO (05:18)
[2024-01-24] MEDS ORDERED: NOVOINJ SC (05:18)
[2024-01-24] MEDS ORDERED: METF-839 PO (05:18)
[2024-01-24] MEDS ORDERED: SENN8.6T28 PO (05:18)
[2024-01-24] MEDS ORDERED: PANT40TA29 PO (05:18)
== END 2024-01-25 ==
LOC: M PT 13:31
PROVIDERS: ATTEND Physician Assistant
DX: Z96.612 Presence of left artificial shoulder joint (principal); Z47.1 Aftercare following joint replacement surgery

== ENCOUNTER 2024-01-23 23:42 | Inpatient (IN) | payer MEDICARE ==
[~2024-01-23] VITALS: Ht 180.3 cm; Wt 141.6 kg
[2024-01-24] VITALS (11 sets, daily range): BP systolic 82–156; BP diastolic 46–69; TEMP 96.8–98.5; O2SAT 91–96
[2024-01-24 00:28] LABS: BASO % 0.3 % (0.0-1.0); EOS # 0.4 10^3/uL (0.0-0.5); EOS % 3.7 % (0.0-3.0); HEMATOCRIT 24.2 % (42.0-52.0); HEMOGLOBIN 7.4 g/dl (13.5-17.5); LYMPH # 1.2 10^3/uL (1.5-5.0); LYMPH % 11.7 % (24.0-44.0); MEAN CORPUSCULAR HGB CONC 30.6 g/dl (32.0-36.5); MEAN CORPUSCULAR VOLUME 91.7 fl (80.0-96.0); MONO % 9.7 % (2.0-8.0); NEUTROPHILS # 7.7 10^3/uL (1.5-8.5); NEUTROPHILS % 73.9 % (36.0-66.0); PLATELET COUNT, AUTOMATED 237 10^3/uL (150-450); RED BLOOD COUNT 2.64 10^6/uL (4.30-6.10); WHITE BLOOD COUNT 10.4 10^3/uL (4.0-10.0)
[2024-01-24 00:51] LABS: CALCIUM LEVEL 8.5 MG/DL (8.3-10.6); CREATININE FOR GFR 3.67 MG/DL (0.70-1.30); GLOMERULAR FILTRATION RATE 17.4 (>42); POTASSIUM SERUM 5.4 MMOL/L (3.5-5.1)
[2024-01-24 01:17] LABS: ABG BASE EXCESS 1.4 (-2.0-2.0); ABG HCO3 27.4 MMOL/L (22.0-26.0); ABG O2 SATURATION 75.2 % (95.0-99.0); ABG PARTIAL PRESSURE CO2 50.1 mmHg (35.0-45.0); ABG STANDARD HCO3 25.4 MMOL/L. (22.0-26.0); ABG TOTAL CO2 28.9 MMOL/L (23.0-31.0); ABG pH (ARTERIAL) 7.355 UNITS (7.350-7.450)
[2024-01-24 01:24] LABS: ABG PARTIAL PRESSURE O2 43.9 mmHg (75.0-100.0)
[2024-01-24 01:47] LABS: CK-MB VALUE MASS 5.7 NG/ML (<3.6)
[2024-01-24 01:49] LABS: ALBUMIN 2.8 G/DL (3.2-5.2); BILIRUBIN,DIRECT 0.2 MG/DL (<0.4); BILIRUBIN,TOTAL 0.5 MG/DL (0.3-1.2); MB/CK RELATIVE INDEX 2.36 (< OR =4); TOTAL PROTEIN 5.6 G/DL (5.7-8.2)
[2024-01-24] MEDS: NS 1,000 ML IV ONE (01:50)
[2024-01-24 02:26] LABS: CK-MB VALUE MASS 4.6 NG/ML (<3.6)
[2024-01-24 02:34] LABS: MB/CK RELATIVE INDEX 2.09 (< OR =4)
[2024-01-24] MEDS: NS IV ONE (03:38)
[2024-01-24] MEDS: PIPERACILLIN/TAZOBACTAM SOD 4.5 GM in D5W MINI-BAG PLUS 50 ML IV ONE (03:38)
[2024-01-24] MEDS ORDERED: MOM 30ML SUSPENSION UDC PO PRN (04:00)
[2024-01-24] MEDS ORDERED: HEPARIN SOD (PORCINE) 5000UNITS/ML 1ML VIAL/SYRINGE SC SCH (04:00)
[2024-01-24] MEDS ORDERED: GLUCAGON INJ 1MG VIAL SC PRN (04:00)
[2024-01-24] MEDS ORDERED: DEXTROSE 50% 50ML SYRINGE IV PRN (04:00)
[2024-01-24] MEDS ORDERED: GLUCOSE 4 GM CHEW PO PRN (04:00)
[2024-01-24] MEDS ORDERED: ALBUTEROL SULFATE 2.5MG/0.5ML INH NEB SOLN NEB PRN (04:25)
[2024-01-24] MEDS ORDERED: VANCOMYCIN HCL 1,000 MG, VIAL MATE ADAPTER 1 EACH in NS 250 ML IV SCH (04:30)
[2024-01-24] MEDS: IPRATROPIUM 0.5MG/ALBUTEROL 2.5MG INH SOL UD 3ML (DUONEB) NEB SCH (04:36)
[2024-01-24] MEDS ORDERED: METF-839 PO (05:18)
[2024-01-24] MEDS ORDERED: XARE15TA PO (05:18)
[2024-01-24] MEDS ORDERED: PANT40TA29 PO (05:18)
[2024-01-24] MEDS ORDERED: CYCL5TAB PO (05:18)
[2024-01-24] MEDS ORDERED: SENN8.6T28 PO (05:18)
[2024-01-24] MEDS ORDERED: NOVOINJ SC (05:18)
[2024-01-24] MEDS ORDERED: HOME MED LIST COMPLETE! XX SCH (05:20)
[2024-01-24] MEDS: VANCOMYCIN HCL 1,000 MG, VIAL MATE ADAPTER 1 EACH in D5W 250 ML IV ONE ×2 (06:01→07:23)
[2024-01-24] MEDS: INSULIN LISPRO (NovoLOG) PER UNIT SC SCH ×2 (07:30→21:00)
[2024-01-24] MEDS: PANTOPRAZOLE 40MG TAB (PROTONIX) PO SCH (09:00)
[2024-01-24] MEDS ORDERED: SENNA 8.6 MG TAB (SENOKOT) PO PRN (11:00)
[2024-01-24] MEDS: PIPERACILLIN/TAZOBACTAM SOD 3.375 GM in D5W MINI-BAG PLUS 50 ML IV SCH (11:17)
[2024-01-24 12:15] LABS: CALCIUM LEVEL 8.8 MG/DL (8.3-10.6); CREATININE FOR GFR 3.87 MG/DL (0.70-1.30); GLOMERULAR FILTRATION RATE 16.4 (>42); POTASSIUM SERUM 4.8 MMOL/L (3.5-5.1)
[2024-01-24 12:22] LABS: PROCALCITONIN 0.32 ng/ml
[2024-01-24 12:25] LABS: BASO % 0.3 % (0.0-1.0); EOS # 0.3 10^3/uL (0.0-0.5); EOS % 3.4 % (0.0-3.0); HEMATOCRIT 25.8 % (42.0-52.0); LYMPH # 1.3 10^3/uL (1.5-5.0); LYMPH % 13.5 % (24.0-44.0); MEAN CORPUSCULAR HEMOGLOBIN 28.4 pg (27.0-33.0); MEAN CORPUSCULAR VOLUME 91.5 fl (80.0-96.0); MONO # 0.8 10^3/uL (0.0-0.8); MONO % 8.4 % (2.0-8.0); NEUTROPHILS # 7.3 10^3/uL (1.5-8.5); NEUTROPHILS % 73.8 % (36.0-66.0); PLATELET COUNT, AUTOMATED 191 10^3/uL (150-450); RED BLOOD COUNT 2.82 10^6/uL (4.30-6.10); WHITE BLOOD COUNT 9.9 10^3/uL (4.0-10.0)
[2024-01-24 12:38] LABS: VANCOMYCIN RANDOM 11.6 UG/ML
[2024-01-24] MEDS: AZITHROMYCIN 250MG TABLET PO SCH (13:40)
[2024-01-24] MEDS: ACETAMINOPHEN TAB 650MG DOSE (2X325MG) PO PRN (13:40)
[2024-01-24] MEDS: allopurinoL 100 MG TAB PO SCH (13:40)
[2024-01-24] MEDS: PRAVASTATIN 20 MG TAB PO SCH (13:40)
[2024-01-24] MEDS: LEVEMIR (INSULIN DETEMIR) 1 UNITS/0.01ML SC SCH (13:41)
[2024-01-24] MEDS: CYCLOBENZAPRINE 5MG TABLET PO PRN (13:47)
[2024-01-24] MEDS: SYMBICORT 160/4.5MCG INHALER 6GM INH SCH (19:43)
[2024-01-24] MEDS ORDERED: PILL CUTTER 1 EACH XX PRN (23:25)
[2024-01-24] MEDS: LORazepam 0.5 MG TAB PO PRN (23:45)
[2024-01-25 03:39] VITALS: BP 109/54; TEMP 97.9; O2SAT 96
[2024-01-25 05:41] LABS: HEMATOCRIT 27.9 % (42.0-52.0); HEMOGLOBIN 8.7 g/dl (13.5-17.5); MEAN CORPUSCULAR HEMOGLOBIN 28.2 pg (27.0-33.0); MEAN CORPUSCULAR HGB CONC 31.2 g/dl (32.0-36.5); MEAN CORPUSCULAR VOLUME 90.6 fl (80.0-96.0); PLATELET COUNT, AUTOMATED 238 10^3/uL (150-450); RED BLOOD COUNT 3.08 10^6/uL (4.30-6.10); WHITE BLOOD COUNT 9.5 10^3/uL (4.0-10.0)
[2024-01-25 06:13] LABS: ALBUMIN 2.7 G/DL (3.2-5.2); BILIRUBIN,TOTAL 0.8 MG/DL (0.3-1.2); CALCIUM LEVEL 9.5 MG/DL (8.3-10.6); CREATININE FOR GFR 3.01 MG/DL (0.70-1.30); GLOMERULAR FILTRATION RATE 21.9 (>42); POTASSIUM SERUM 4.6 MMOL/L (3.5-5.1); TOTAL PROTEIN 5.7 G/DL (5.7-8.2)
[2024-01-25] MEDS: TIOTROPIUM INHALER/CAPSULE (SPIRIVA) INH SCH (07:29)
[2024-01-25 08:00] VITALS: BP 120/57; TEMP 97; O2SAT 95
[2024-01-25] MEDS ORDERED: VANCOMYCIN HCL 750 MG, VIAL MATE ADAPTER 1 EACH in D5W 250 ML IV SCH (08:00)
[2024-01-25] MEDS ORDERED: VANCOMYCIN HCL 500 MG in D5W MINI-BAG PLUS 100 ML IV SCH (09:00)
[2024-01-25 15:30] VITALS: BP 139/65; TEMP 97.4; O2SAT 95
[2024-01-25 19:18] VITALS: BP 115/55; TEMP 97.9; O2SAT 95
[2024-01-25] MEDS: QUEtiapine FUMARATE 25 MG TAB PO SCH (20:51)
[2024-01-26 03:40] VITALS: BP 106/53; TEMP 98.7; O2SAT 93
[2024-01-26 06:30] LABS: HEMATOCRIT 29.6 % (42.0-52.0); HEMOGLOBIN 9.1 g/dl (13.5-17.5); MEAN CORPUSCULAR HEMOGLOBIN 28.3 pg (27.0-33.0); MEAN CORPUSCULAR HGB CONC 30.7 g/dl (32.0-36.5); MEAN CORPUSCULAR VOLUME 91.9 fl (80.0-96.0); PLATELET COUNT, AUTOMATED 276 10^3/uL (150-450); RED BLOOD COUNT 3.22 10^6/uL (4.30-6.10); WHITE BLOOD COUNT 9.7 10^3/uL (4.0-10.0)
[2024-01-26 06:53] LABS: ALBUMIN 2.9 G/DL (3.2-5.2); CALCIUM LEVEL 9.8 MG/DL (8.3-10.6); CREATININE FOR GFR 2.02 MG/DL (0.70-1.30); GLOMERULAR FILTRATION RATE 34.7 (>42); PHOSPHORUS LEVEL 2.6 MG/DL (2.4-5.1); POTASSIUM SERUM 4.6 MMOL/L (3.5-5.1)
[2024-01-26 07:39] VITALS: BP 125/57; TEMP 97.7; O2SAT 98
[2024-01-26] MEDS: TORSEMIDE 20 MG TAB PO SCH (08:28)
[2024-01-26] MEDS: LORazepam 1 MG TAB PO STA (08:29)
[2024-01-26] MEDS: HYDROMORPHONE HCL 0.5 MG/ 0.5 ML SYRINGE IV PRN (10:35)
[2024-01-26] MEDS: CEFDINIR 300 MG CAP (OMNICEF) PO SCH (11:56)
[2024-01-26 15:53] VITALS: BP 139/92; TEMP 99; O2SAT 95
[2024-01-26] MEDS: PERCOCET 5MG/325MG TAB PO PRN (16:36)
[2024-01-26 19:21] VITALS: BP 137/64; TEMP 98.7; O2SAT 96
[2024-01-26] MEDS: QUEtiapine FUMARATE 25 MG TAB PO ONE (21:11)
[2024-01-27 04:08] VITALS: BP 162/78; TEMP 98.6; O2SAT 93
[2024-01-27 05:42] LABS: HEMATOCRIT 28.1 % (42.0-52.0); HEMOGLOBIN 8.5 g/dl (13.5-17.5); MEAN CORPUSCULAR HEMOGLOBIN 27.8 pg (27.0-33.0); MEAN CORPUSCULAR HGB CONC 30.2 g/dl (32.0-36.5); MEAN CORPUSCULAR VOLUME 91.8 fl (80.0-96.0); PLATELET COUNT, AUTOMATED 260 10^3/uL (150-450); RED BLOOD COUNT 3.06 10^6/uL (4.30-6.10); WHITE BLOOD COUNT 8.1 10^3/uL (4.0-10.0)
[2024-01-27 06:23] LABS: ALBUMIN 2.8 G/DL (3.2-5.2); CALCIUM LEVEL 9.5 MG/DL (8.3-10.6); CREATININE FOR GFR 1.78 MG/DL (0.70-1.30); GLOMERULAR FILTRATION RATE 40.2 (>42); PHOSPHORUS LEVEL 2.8 MG/DL (2.4-5.1); POTASSIUM SERUM 4.1 MMOL/L (3.5-5.1)
[2024-01-27 06:46] VITALS: BP 158/82; TEMP 98.5; O2SAT 97
[2024-01-27 07:09] VITALS: BP 153/84; TEMP 98.2; O2SAT 98
[2024-01-27] MEDS: APIXABAN 5 MG TAB (ELIQUIS) PO SCH (08:26)
[2024-01-27 12:00] VITALS: BP 154/85; TEMP 97.9; O2SAT 97
[2024-01-27] MEDS: METOPROLOL TART 25 MG TABLET PO ONE (12:35)
[2024-01-27 20:00] VITALS: BP 155/81; TEMP 97.8; O2SAT 96
[2024-01-27] MEDS: QUEtiapine FUMARATE 50MG TAB PO SCH (20:56)
[2024-01-27] MEDS: METOPROLOL TART 25 MG TABLET PO SCH (20:59)
[2024-01-28 04:31] VITALS: BP 158/80; TEMP 98.8; O2SAT 94
[2024-01-28 07:19] LABS: BASO # 0.1 10^3/uL (0.0-0.2); BASO % 0.7 % (0.0-1.0); EOS # 0.6 10^3/uL (0.0-0.5); EOS % 7.3 % (0.0-3.0); HEMATOCRIT 30.1 % (42.0-52.0); HEMOGLOBIN 9.3 g/dl (13.5-17.5); LYMPH # 1.4 10^3/uL (1.5-5.0); LYMPH % 16.5 % (24.0-44.0); MEAN CORPUSCULAR HEMOGLOBIN 27.8 pg (27.0-33.0); MEAN CORPUSCULAR HGB CONC 30.9 g/dl (32.0-36.5); MEAN CORPUSCULAR VOLUME 90.1 fl (80.0-96.0); MONO # 0.8 10^3/uL (0.0-0.8); MONO % 9.5 % (2.0-8.0); NEUTROPHILS # 5.6 10^3/uL (1.5-8.5); NEUTROPHILS % 65.4 % (36.0-66.0); PLATELET COUNT, AUTOMATED 293 10^3/uL (150-450); RED BLOOD COUNT 3.34 10^6/uL (4.30-6.10); WHITE BLOOD COUNT 8.6 10^3/uL (4.0-10.0)
[2024-01-28 07:56] LABS: CALCIUM LEVEL 9.5 MG/DL (8.3-10.6); CREATININE FOR GFR 1.74 MG/DL (0.70-1.30); GLOMERULAR FILTRATION RATE 41.3 (>42); POTASSIUM SERUM 4.1 MMOL/L (3.5-5.1)
[2024-01-28 09:49] VITALS: BP 162/84
[2024-01-28 09:51] VITALS: BP 162/84
[2024-01-28] MEDS ORDERED: CEFD1CAP9 PO (10:42)
[2024-01-28] MEDS ORDERED: SITA50TAB PO (10:42)
[2024-01-28] MEDS ORDERED: QUET50TA4 PO (10:42)
[2024-01-28] MEDS ORDERED: ELIQ5TAB PO (10:42)
[2024-01-28] MEDS ORDERED: TORS20TA2 PO (11:50)
== END 2024-01-28 12:36 | disposition home or self-care (01) | DRG 871 ==
LOC: M ED 23:42 → M ED INP 01-24 04:00 → M PCU 01-24 16:15 → M MSPAV 01-27 07:02
PROVIDERS: ADMIT Internal Medicine; ATTEND Internal Medicine
PROC: 30233N1 Transfusion of Nonautologous Red Blood Cells into Peripheral Vein, Percutaneous Approach (ICD-10-PCS; principal; 2024-01-24)
PROC: B246ZZZ Ultrasonography of Right and Left Heart (ICD-10-PCS; 2024-01-24)
DX: A41.9 Sepsis, unspecified organism (principal); J15.69 Pneumonia due to other Gram-negative bacteria; I50.32 Chronic diastolic (congestive) heart failure; Z68.41 Body mass index [BMI] 40.0-44.9, adult; I48.20 Chronic atrial fibrillation, unspecified; N17.9 Acute kidney failure, unspecified; J96.11 Chronic respiratory failure with hypoxia; E87.1 Hypo-osmolality and hyponatremia; I13.0 Hypertensive heart and chronic kidney disease with heart failure and stage 1 through stage 4 chronic kidney disease, or unspecified chronic kidney disease; J44.0 Chronic obstructive pulmonary disease with (acute) lower respiratory infection; K92.2 Gastrointestinal hemorrhage, unspecified; E11.22 Type 2 diabetes mellitus with diabetic chronic kidney disease; G47.33 Obstructive sleep apnea (adult) (pediatric); N18.30 Chronic kidney disease, stage 3 unspecified; E66.01 Morbid (severe) obesity due to excess calories; R74.01 Elevation of levels of liver transaminase levels; E78.5 Hyperlipidemia, unspecified; I25.10 Atherosclerotic heart disease of native coronary artery without angina pectoris; E11.42 Type 2 diabetes mellitus with diabetic polyneuropathy; N40.0 Benign prostatic hyperplasia without lower urinary tract symptoms; K21.9 Gastro-esophageal reflux disease without esophagitis; K59.00 Constipation, unspecified; K75.81 Nonalcoholic steatohepatitis (NASH); M10.9 Gout, unspecified; M19.012 Primary osteoarthritis, left shoulder; Z96.653 Presence of artificial knee joint, bilateral; Z98.41 Cataract extraction status, right eye; Z99.81 Dependence on supplemental oxygen; Z95.5 Presence of coronary angioplasty implant and graft; Z79.4 Long term (current) use of insulin; Z79.84 Long term (current) use of oral hypoglycemic drugs; Z79.899 Other long term (current) drug therapy; Z88.2 Allergy status to sulfonamides; Z91.013 Allergy to seafood; I95.9 Hypotension, unspecified; R65.20 Severe sepsis without septic shock; D64.9 Anemia, unspecified

== ENCOUNTER → 2024-02-16 | Outpatient (CLI) | payer MEDICARE ==
[~2024-02-16] MED LIST changes: +CEFD1CAP9 PO; +CYCL5TAB PO; +ELIQ5TAB PO; +METF-839 PO; +NOVOINJ SC; +PANT40TA29 PO; +QUET50TA4 PO; +SENN8.6T28 PO; +SITA50TAB PO
[2024-02-16 13:30] LABS: HEMOGLOBIN A1c 5.9 % (4.0-6.0)
== END ==
LOC: M LAB 12:39
PROVIDERS: ATTEND Physician Assistant
DX: M16.11 Unilateral primary osteoarthritis, right hip (principal); Z79.899 Other long term (current) drug therapy

== ENCOUNTER → 2024-02-16 | Outpatient (CLI) | payer MEDICARE | LOC: M SOG 14:00 | PROVIDERS: ATTEND Orthopaedic Surgery Hand Surgery | DX: Z96.612 Presence of left artificial shoulder joint (principal) ==

== ENCOUNTER 2024-03-07 05:56 | Day surgery (SDC) | payer MEDICARE ==
[~2024-03-07] VITALS: Ht 175.3 cm; Wt 132.9 kg
[~2024-03-07 05:56] MED LIST changes: +ALLO300T2 PO; +NOVOINJ3 SQ; +OXYC1TAB23; +SENN-187 PO
[2024-03-07] MEDS: LIDOCAINE W/EPINEPHRINE 1% 20ML VIAL XX ONE (07:15)
[2024-03-07] MEDS: SODIUM BICARBONATE 8.4% INJ 50MEQ 50ML VIAL As Ordered ONE (07:17)
[2024-03-07] MEDS: methylPREDNISolone SUSP 40MG/ML 1ML VIAL (DEPO MEDROL) As Ordered ONE (07:54)
[2024-03-07] MEDS: ISOVUE-300 61% 100ML VIAL As Ordered ONE (07:54)
[2024-03-07] MEDS: SODIUM BICARBONATE 8.4% INJ 50MEQ 50ML VIAL XX ONE (07:54)
[2024-03-07] MEDS: LIDOCAINE 1% MDV 20ML VIAL As Ordered ONE (07:54)
[2024-03-07 08:04] VITALS: BP 145/74; TEMP 96.6; O2SAT 97
== END 2024-03-07 08:29 | disposition home or self-care (01) ==
LOC: M SDC 05:56
PROVIDERS: ATTEND Orthopaedic Surgery Hand Surgery
DX: M16.11 Unilateral primary osteoarthritis, right hip (principal); I48.91 Unspecified atrial fibrillation; I25.10 Atherosclerotic heart disease of native coronary artery without angina pectoris; I12.9 Hypertensive chronic kidney disease with stage 1 through stage 4 chronic kidney disease, or unspecified chronic kidney disease; N18.30 Chronic kidney disease, stage 3 unspecified; E11.9 Type 2 diabetes mellitus without complications; E78.5 Hyperlipidemia, unspecified; K76.0 Fatty (change of) liver, not elsewhere classified; L40.9 Psoriasis, unspecified; J44.9 Chronic obstructive pulmonary disease, unspecified; Z79.01 Long term (current) use of anticoagulants; Z79.51 Long term (current) use of inhaled steroids; Z88.2 Allergy status to sulfonamides; Z88.8 Allergy status to other drugs, medicaments and biological substances; Z91.013 Allergy to seafood; M10.9 Gout, unspecified; Z79.4 Long term (current) use of insulin; Z99.81 Dependence on supplemental oxygen; G47.33 Obstructive sleep apnea (adult) (pediatric); N40.0 Benign prostatic hyperplasia without lower urinary tract symptoms; Z87.891 Personal history of nicotine dependence; Z96.612 Presence of left artificial shoulder joint
CPT/HCPCS: 20610; 76000; J0665; J1010; Q9967

== ENCOUNTER 2024-04-07 15:01 | Emergency (ER) | payer MEDICARE ==
[~2024-04-07] VITALS: Ht 180.3 cm; Wt 127.0 kg
[~2024-04-07 15:01] MED LIST changes: +GABA-1172 PO; -GABA-282 PO
[2024-04-07 15:05] VITALS: BP 131/66; TEMP 97.7; O2SAT 98
[2024-04-07] MEDS ORDERED: POTA-298 PO (15:19)
== END 2024-04-07 16:48 | disposition home or self-care (01) ==
LOC: M ED 15:01
DX: M16.11 Unilateral primary osteoarthritis, right hip (principal); E11.9 Type 2 diabetes mellitus without complications; I10 Essential (primary) hypertension; N18.30 Chronic kidney disease, stage 3 unspecified; D64.9 Anemia, unspecified; Z79.4 Long term (current) use of insulin; Z79.899 Other long term (current) drug therapy; Z88.2 Allergy status to sulfonamides; Z88.8 Allergy status to other drugs, medicaments and biological substances; Z91.013 Allergy to seafood

== ENCOUNTER → 2024-04-28 | Outpatient (CLI) | payer MEDICARE ==
[~2024-04-28] MED LIST changes: +POTA-298 PO
== END ==
LOC: M RAD 13:51
PROVIDERS: ATTEND Nurse Practitioner Adult Health
DX: M25.551 Pain in right hip (principal); M51.27 Other intervertebral disc displacement, lumbosacral region; R93.6 Abnormal findings on diagnostic imaging of limbs; M48.061 Spinal stenosis, lumbar region without neurogenic claudication; M51.360 Other intervertebral disc degeneration, lumbar region with discogenic back pain only; M51.370 Other intervertebral disc degeneration, lumbosacral region with discogenic back pain only

== ENCOUNTER → 2024-04-28 | Outpatient (CLI) | payer MEDICARE ==
[~2024-04-28] MED LIST changes: -CYCL5TAB PO; +CYCL5TAB4 PO; -NEOM1SOL13; -NEOM1SOL13 AD; +NEOM1SOL21; +NEOM1SOL21 AD
[2024-04-28 15:50] LABS: BASO # 0.1 10^3/uL (0.0-0.2); BASO % 0.5 % (0.0-1.0); EOS # 0.4 10^3/uL (0.0-0.5); EOS % 4.1 % (0.0-3.0); HEMATOCRIT 35.6 % (42.0-52.0); HEMOGLOBIN 10.5 g/dl (13.5-17.5); LYMPH # 1.3 10^3/uL (1.5-5.0); LYMPH % 13.3 % (24.0-44.0); MEAN CORPUSCULAR HEMOGLOBIN 25.3 pg (27.0-33.0); MEAN CORPUSCULAR HGB CONC 29.5 g/dl (32.0-36.5); MEAN CORPUSCULAR VOLUME 85.8 fl (80.0-96.0); MONO # 0.9 10^3/uL (0.0-0.8); NEUTROPHILS % 72.8 % (36.0-66.0); PLATELET COUNT, AUTOMATED 297 10^3/uL (150-450); RED BLOOD COUNT 4.15 10^6/uL (4.30-6.10); WHITE BLOOD COUNT 9.6 10^3/uL (4.0-10.0)
[2024-04-28 16:31] LABS: ALBUMIN 3.1 G/DL (3.2-5.2); ALKALINE PHOSPHATASE 129 U/L (40-129); ALT/SGPT 24 U/L (7.0-40); AST/SGOT 28 U/L (<34); BILIRUBIN,TOTAL 0.4 MG/DL (0.3-1.2); BLOOD UREA NITROGEN 33 MG/DL (9-23); CALCIUM LEVEL 10.7 MG/DL (8.3-10.6); CARBON DIOXIDE LEVEL 32 MMOL/L (20-31); CARCINOEMBRYONIC ANTIGEN < 2.0 NG/ML (<2.5); CHLORIDE LEVEL 102 MMOL/L (98-107); CREATININE FOR GFR 2.05 MG/DL (0.70-1.30); GLOMERULAR FILTRATION RATE 34.2 (>42); GLUCOSE, FASTING 95 MG/DL (74-106); POTASSIUM SERUM 4.3 MMOL/L (3.5-5.1); SODIUM LEVEL 139 MMOL/L (136-145); TOTAL PROTEIN 6.9 G/DL (5.7-8.2)
== END ==
LOC: M LAB 14:34
PROVIDERS: ATTEND Nurse Practitioner Adult Health
DX: D68.69 Other thrombophilia (principal); J44.9 Chronic obstructive pulmonary disease, unspecified; R41.3 Other amnesia

== ENCOUNTER → 2024-05-04 | Outpatient (CLI) | payer MEDICARE | LOC: M SOG 08:13 | PROVIDERS: ATTEND Orthopaedic Surgery | DX: M16.11 Unilateral primary osteoarthritis, right hip (principal); M21.851 Other specified acquired deformities of right thigh ==

== ENCOUNTER → 2024-05-10 | Outpatient (CLI) | payer MEDICARE | LOC: M RAD 09:46 | PROVIDERS: ATTEND Physician Assistant | DX: I65.23 Occlusion and stenosis of bilateral carotid arteries (principal) ==

== ENCOUNTER → 2024-05-10 | Outpatient (CLI) | payer MEDICARE ==
[2024-05-10 12:00] LABS: BASO # 0.1 10^3/uL (0.0-0.2); BASO % 0.7 % (0.0-1.0); EOS # 0.3 10^3/uL (0.0-0.5); HEMATOCRIT 39.6 % (42.0-52.0); HEMOGLOBIN 11.7 g/dl (13.5-17.5); LYMPH # 1.3 10^3/uL (1.5-5.0); LYMPH % 11.9 % (24.0-44.0); MEAN CORPUSCULAR HEMOGLOBIN 25.3 pg (27.0-33.0); MEAN CORPUSCULAR HGB CONC 29.5 g/dl (32.0-36.5); MEAN CORPUSCULAR VOLUME 85.5 fl (80.0-96.0); MONO # 0.8 10^3/uL (0.0-0.8); MONO % 7.3 % (2.0-8.0); NEUTROPHILS # 8.3 10^3/uL (1.5-8.5); NEUTROPHILS % 76.5 % (36.0-66.0); PLATELET COUNT, AUTOMATED 348 10^3/uL (150-450); RED BLOOD COUNT 4.63 10^6/uL (4.30-6.10); WHITE BLOOD COUNT 10.9 10^3/uL (4.0-10.0)
[2024-05-10 12:10] LABS: INR 1.32; PROTHROMBIN TIME 16.6 SECONDS (12.5-14.5)
[2024-05-10 12:24] LABS: ERYTHROCYTE SEDIMENTATION RATE 124 mm/hr (0-20)
[2024-05-10 12:26] LABS: C REACTIVE PROTEIN QUANTITATIV 2.9 MG/DL (<1.0)
[2024-05-10 12:28] LABS: ALBUMIN 3.1 G/DL (3.2-5.2); BILIRUBIN,TOTAL 0.4 MG/DL (0.3-1.2); CALCIUM LEVEL 10.6 MG/DL (8.3-10.6); CREATININE FOR GFR 1.92 MG/DL (0.70-1.30); GLOMERULAR FILTRATION RATE 36.8 (>42); POTASSIUM SERUM 4.2 MMOL/L (3.5-5.1)
== END ==
LOC: M LAB 09:47
PROVIDERS: ATTEND Orthopaedic Surgery
DX: M87.851 Other osteonecrosis, right femur (principal); Z79.01 Long term (current) use of anticoagulants; Z79.899 Other long term (current) drug therapy

== ENCOUNTER → 2024-05-11 | Outpatient (CLI) | payer MEDICARE | LOC: M WHC 09:38 | PROVIDERS: ATTEND Orthopaedic Surgery | DX: M87.851 Other osteonecrosis, right femur (principal); M85.89 Other specified disorders of bone density and structure, multiple sites ==

== ENCOUNTER → 2024-05-16 | Outpatient (CLI) | payer MEDICARE | LOC: M RAD 14:41 | PROVIDERS: ATTEND Orthopaedic Surgery | DX: M87.851 Other osteonecrosis, right femur (principal); M16.0 Bilateral primary osteoarthritis of hip; M25.451 Effusion, right hip; M47.816 Spondylosis without myelopathy or radiculopathy, lumbar region; M47.898 Other spondylosis, sacral and sacrococcygeal region ==

== ENCOUNTER → 2024-05-21 | Outpatient (CLI) | payer MEDICARE | LOC: M SOG 13:55 | PROVIDERS: ATTEND Orthopaedic Surgery | DX: Z96.653 Presence of artificial knee joint, bilateral (principal) ==

== ENCOUNTER → 2024-05-30 | Outpatient (CLI) | payer MEDICARE ==
[~2024-05-30] MED LIST changes: +IRON1TAB2 PO; -OXYC1TAB23; +OXYC1TAB23 PO
[2024-05-30 14:34] LABS: BASO # 0.1 10^3/uL (0.0-0.2); BASO % 0.6 % (0.0-1.0); EOS # 0.6 10^3/uL (0.0-0.5); EOS % 6.5 % (0.0-3.0); HEMATOCRIT 37.3 % (42.0-52.0); HEMOGLOBIN 11.2 g/dl (13.5-17.5); LYMPH # 1.1 10^3/uL (1.5-5.0); LYMPH % 11.9 % (24.0-44.0); MEAN CORPUSCULAR HEMOGLOBIN 25.6 pg (27.0-33.0); MEAN CORPUSCULAR VOLUME 85.4 fl (80.0-96.0); MONO # 0.7 10^3/uL (0.0-0.8); MONO % 7.9 % (2.0-8.0); NEUTROPHILS # 6.6 10^3/uL (1.5-8.5); NEUTROPHILS % 72.8 % (36.0-66.0); PLATELET COUNT, AUTOMATED 278 10^3/uL (150-450); RED BLOOD COUNT 4.37 10^6/uL (4.30-6.10)
[2024-05-30 14:45] LABS: ERYTHROCYTE SEDIMENTATION RATE 125 mm/hr (0-20)
[2024-05-30 14:53] LABS: HEMOGLOBIN A1c 5.9 % (4.0-6.0)
[2024-05-30 14:59] LABS: ALBUMIN 2.9 G/DL (3.2-5.2); BILIRUBIN,TOTAL 0.3 MG/DL (0.3-1.2); C REACTIVE PROTEIN QUANTITATIV 5.46 MG/DL (<1.0); CALCIUM LEVEL 10.8 MG/DL (8.3-10.6); CREATININE FOR GFR 1.93 MG/DL (0.70-1.30); GLOMERULAR FILTRATION RATE 36.6 (>42); POTASSIUM SERUM 4.1 MMOL/L (3.5-5.1); TOTAL PROTEIN 6.6 G/DL (5.7-8.2)
[2024-05-30 15:03] LABS: TOTAL 25(OH) VITAMIN D 34.2 NG/ML (20.0-100.0)
== END ==
LOC: M LAB 13:27
PROVIDERS: ATTEND Orthopaedic Surgery
DX: M16.11 Unilateral primary osteoarthritis, right hip (principal)

== ENCOUNTER 2024-06-01 20:51 | Inpatient (IN) | payer MEDICARE ==
[~2024-06-01] VITALS: Ht 182.9 cm; Wt 111.5 kg
[~2024-06-01 20:51] MED LIST changes: -IRON1TAB2 PO
[2024-06-01] MEDS: LORazepam 2 MG/ML 1ML VIAL IV STA ×2 (21:26→23:52)
[2024-06-01] MEDS: ACETAMINOPHEN 650MG SUPP PR ONE (21:30)
[2024-06-01 21:39] LABS: BASO % 0.2 % (0.0-1.0); EOS % 0.1 % (0.0-3.0); HEMATOCRIT 36.7 % (42.0-52.0); HEMOGLOBIN 11.2 g/dl (13.5-17.5); LYMPH # 0.6 10^3/uL (1.5-5.0); MEAN CORPUSCULAR HEMOGLOBIN 25.3 pg (27.0-33.0); MEAN CORPUSCULAR HGB CONC 30.5 g/dl (32.0-36.5); MEAN CORPUSCULAR VOLUME 82.8 fl (80.0-96.0); MONO # 1.3 10^3/uL (0.0-0.8); NEUTROPHILS # 18.9 10^3/uL (1.5-8.5); NEUTROPHILS % 89.7 % (36.0-66.0); PLATELET COUNT, AUTOMATED 267 10^3/uL (150-450); RED BLOOD COUNT 4.43 10^6/uL (4.30-6.10)
[2024-06-01 22:16] LABS: ALBUMIN 3.3 G/DL (3.2-5.2); ALKALINE PHOSPHATASE 143 U/L (40-129); ALT/SGPT 17 U/L (7.0-40); AST/SGOT 24 U/L (<34); BILIRUBIN,DIRECT 0.2 MG/DL (<0.4); BILIRUBIN,TOTAL 0.6 MG/DL (0.3-1.2); BLOOD UREA NITROGEN 33 MG/DL (9-23); CALCIUM LEVEL 10.7 MG/DL (8.3-10.6); CARBON DIOXIDE LEVEL 27 MMOL/L (20-31); CHLORIDE LEVEL 100 MMOL/L (98-107); CREATININE FOR GFR 1.83 MG/DL (0.70-1.30); GLOMERULAR FILTRATION RATE 38.9 (>42); GLUCOSE, FASTING 144 MG/DL (74-106); POTASSIUM SERUM 4.2 MMOL/L (3.5-5.1); SODIUM LEVEL 139 MMOL/L (136-145)
[2024-06-02 01:25] LABS: PROCALCITONIN 2.75 ng/ml
[2024-06-02 04:09] LABS: Trichomonas vaginalis (AMP) NOT DETECTED (NEGATIVE)
[2024-06-02 04:34] LABS: GC DNA AMPLIFICATION NEGATIVE (NEGATIVE)
[2024-06-02] MEDS: LORazepam 2 MG/ML 1ML VIAL IV STA (04:35)
[2024-06-02] MEDS: MIDAZOLAM INJ 2MG/2ML VIAL IV STA (06:00)
[2024-06-02] MEDS ORDERED: MIDAZOLAM INJ 2MG/2ML VIAL As Ordered ONE (06:04)
[2024-06-02 06:59] LABS: COLOR, CSF RED (COLORLESS); CSF TUBE# CELL CNT TUBE 1
[2024-06-02 07:00] LABS: APPEARANCE, CSF TURBID (CLEAR)
[2024-06-02] MEDS: CEFEPIME HCL 2 GM in DEXTROSE 5% (D5W) ADV/MINI-BAG 50 ML IV ONE (07:17)
[2024-06-02 07:41] LABS: CSF TUBE# TP TUBE 2; TOTAL PROTEIN,CSF 70.5 MG/DL (15-45)
[2024-06-02 07:44] LABS: CSF TUBE# GLU TUBE 2
[2024-06-02] MEDS ORDERED: IRON1TAB2 PO (08:05)
[2024-06-02] MEDS ORDERED: CYCL5TAB4 PO (08:05)
[2024-06-02] MEDS ORDERED: ELIQ5TAB PO (08:05)
[2024-06-02] MEDS ORDERED: BETA1OI TOP (08:05)
[2024-06-02] MEDS ORDERED: SITA50TAB PO (08:05)
[2024-06-02] MEDS ORDERED: HOME MED LIST COMPLETE! XX SCH (08:10)
[2024-06-02] MEDS: allopurinoL 300 MG TAB PO SCH (15:38)
[2024-06-02 16:00] VITALS: BP 175/87; TEMP 98.1; O2SAT 94
[2024-06-02] MEDS: TORSEMIDE 20 MG TAB PO SCH (17:21)
[2024-06-02 20:01] VITALS: BP 179/90; TEMP 98.1; O2SAT 95
[2024-06-02] MEDS: SENNA 8.6 MG TAB (SENOKOT) PO SCH (20:23)
[2024-06-02] MEDS: ACETAMINOPHEN 325 MG TAB PO PRN (20:23)
[2024-06-02] MEDS: METOPROLOL TART 50 MG TAB PO SCH (20:24)
[2024-06-02] MEDS: CEFEPIME HCL 2 GM in DEXTROSE 5% (D5W) ADV/MINI-BAG 50 ML IV SCH (20:24)
[2024-06-02] MEDS: PANTOPRAZOLE 40MG TAB (PROTONIX) PO SCH (20:24)
[2024-06-02] MEDS: APIXABAN 5 MG TAB (ELIQUIS) PO SCH (20:24)
[2024-06-02] MEDS ORDERED: TORSEMIDE 20 MG TAB PO SCH (21:00)
[2024-06-02] MEDS: VANCOMYCIN 1,750 MG/350 ML IV BAG *LOAD IV ONE (21:02)
[2024-06-02] MEDS ORDERED: NALOXONE INJ 0.4MG/1ML VIAL IV PRN (21:40)
[2024-06-02] MEDS ORDERED: GLUCAGON INJ 1MG VIAL SC PRN (22:15)
[2024-06-02] MEDS ORDERED: DEXTROSE 50% 50ML SYRINGE IV PRN (22:15)
[2024-06-02] MEDS ORDERED: GLUCOSE 4 GM CHEW PO PRN (22:15)
[2024-06-02] MEDS: RAMELTEON 8 MG TAB (ROZEREM) PO PRN (22:17)
[2024-06-02] MEDS: MORPHINE 2 MG/ML 1ML VIAL IV ONE (22:17)
[2024-06-02 22:58] LABS: VENOUS BASE EXCESS 3.1 (-2.0-2.0); VENOUS HCO3 27.3 MMOL/L (23.0-27.0); VENOUS O2 SATURATION 98.3 % (60.0-80.0); VENOUS PARTIAL PRESSURE CO2 40.5 mmHg (38.0-50.0); VENOUS PARTIAL PRESSURE O2 123.7 mmHg (30.0-50.0); VENOUS PH 7.447 UNITS (7.330-7.430); VENOUS STANDARD HCO3 27.2 MMOL/L; VENOUS TOTAL CO2 28.6 MMOL/L (24.0-28.0)
[2024-06-02 23:05] LABS: BASO % 0.3 % (0.0-1.0); EOS # 0.2 10^3/uL (0.0-0.5); EOS % 1.4 % (0.0-3.0); HEMATOCRIT 32.9 % (42.0-52.0); LYMPH # 1.6 10^3/uL (1.5-5.0); LYMPH % 11.2 % (24.0-44.0); MEAN CORPUSCULAR HEMOGLOBIN 25.1 pg (27.0-33.0); MEAN CORPUSCULAR HGB CONC 30.4 g/dl (32.0-36.5); MEAN CORPUSCULAR VOLUME 82.7 fl (80.0-96.0); MONO # 1.4 10^3/uL (0.0-0.8); MONO % 9.5 % (2.0-8.0); NEUTROPHILS # 11.1 10^3/uL (1.5-8.5); PLATELET COUNT, AUTOMATED 251 10^3/uL (150-450); RED BLOOD COUNT 3.98 10^6/uL (4.30-6.10); WHITE BLOOD COUNT 14.4 10^3/uL (4.0-10.0)
[2024-06-02 23:13] LABS: ERYTHROCYTE SEDIMENTATION RATE 128 mm/hr (0-20)
[2024-06-02] MEDS: PERCOCET 5MG/325MG TAB PO PRN (23:25)
[2024-06-02 23:31] LABS: C REACTIVE PROTEIN QUANTITATIV 22.27 MG/DL (<1.0)
[2024-06-02 23:32] LABS: ALBUMIN 2.7 G/DL (3.2-5.2); BILIRUBIN,TOTAL 0.4 MG/DL (0.3-1.2); CALCIUM LEVEL 10.4 MG/DL (8.3-10.6); CREATININE FOR GFR 1.54 MG/DL (0.70-1.30); GLOMERULAR FILTRATION RATE 47.5 (>42); MAGNESIUM LEVEL 2.1 MG/DL (1.8-2.4); POTASSIUM SERUM 3.7 MMOL/L (3.5-5.1); TOTAL PROTEIN 6.3 G/DL (5.7-8.2)
[2024-06-02 23:52] VITALS: BP 134/72; TEMP 97.9; O2SAT 94
[2024-06-03 04:01] VITALS: BP 165/78; TEMP 97.5; O2SAT 97
[2024-06-03 06:17] LABS: HEMATOCRIT 35.4 % (42.0-52.0); HEMOGLOBIN 10.6 g/dl (13.5-17.5); MEAN CORPUSCULAR HEMOGLOBIN 24.9 pg (27.0-33.0); MEAN CORPUSCULAR HGB CONC 29.9 g/dl (32.0-36.5); MEAN CORPUSCULAR VOLUME 83.1 fl (80.0-96.0); PLATELET COUNT, AUTOMATED 265 10^3/uL (150-450); RED BLOOD COUNT 4.26 10^6/uL (4.30-6.10); WHITE BLOOD COUNT 13.2 10^3/uL (4.0-10.0)
[2024-06-03 06:45] LABS: ALBUMIN 2.7 G/DL (3.2-5.2); BILIRUBIN,TOTAL 0.4 MG/DL (0.3-1.2); CALCIUM LEVEL 10.7 MG/DL (8.3-10.6); CREATININE FOR GFR 1.56 MG/DL (0.70-1.30); GLOMERULAR FILTRATION RATE 46.8 (>42); POTASSIUM SERUM 3.6 MMOL/L (3.5-5.1); TOTAL PROTEIN 6.5 G/DL (5.7-8.2)
[2024-06-03 06:57] LABS: PROCALCITONIN 9.37 ng/ml
[2024-06-03] MEDS: INSULIN LISPRO (NovoLOG) PER UNIT SC SCH ×2 (07:30→20:49)
[2024-06-03 08:00] VITALS: BP 130/69; TEMP 97.6; O2SAT 98
[2024-06-03] MEDS: POTASSIUM CHLORIDE 10MEQ SR TABLET PO SCH (09:41)
[2024-06-03] MEDS: PRAVASTATIN 20 MG TAB PO SCH (09:42)
[2024-06-03] MEDS: FERROUS SULFATE 325MG TAB PO SCH (09:42)
[2024-06-03] MEDS: LEVEMIR (INSULIN DETEMIR) 1 UNITS/0.01ML SC SCH (09:45)
[2024-06-03] MEDS: VANCOMYCIN/WATER FOR INJ 1,000 MG in IV 1 EA IV SCH (09:45)
[2024-06-03 12:00] VITALS: BP 132/70; TEMP 97.7; O2SAT 98
[2024-06-03] MEDS: QUEtiapine FUMARATE 50MG TAB PO SCH (14:45)
[2024-06-03 16:00] VITALS: BP 128/68; TEMP 97.5; O2SAT 97
[2024-06-03 19:58] VITALS: BP 150/89; TEMP 97.9; O2SAT 99
[2024-06-03] MEDS ORDERED: QUEtiapine FUMARATE 50MG TAB PO SCH (21:00)
[2024-06-03 23:52] VITALS: BP 136/76; TEMP 97.3; O2SAT 98
[2024-06-04] MEDS: methocarbamoL 500 MG TAB PO PRN (02:07)
[2024-06-04] MEDS: METHOCARBAMOL 1,000 MG/10 ML VIAL IV ONE (02:45)
[2024-06-04 04:18] VITALS: BP 136/74; TEMP 97.3; O2SAT 97
[2024-06-04 08:00] VITALS: BP 126/69; TEMP 97.5; O2SAT 97
[2024-06-04 08:38] LABS: VANCOMYCIN LEVEL TROUGH 13.5 UG/ML (10.0-20.0)
[2024-06-04 08:39] LABS: CALCIUM LEVEL 10.6 MG/DL (8.3-10.6); CREATININE FOR GFR 1.52 MG/DL (0.70-1.30); GLOMERULAR FILTRATION RATE 48.2 (>42); POTASSIUM SERUM 3.5 MMOL/L (3.5-5.1)
[2024-06-04 08:52] VITALS: BP 148/75
[2024-06-04] MEDS ORDERED: LIDOCAINE 1% MDV 20ML VIAL As Ordered ONE (11:45)
[2024-06-04] MEDS ORDERED: LORazepam 2 MG/ML 1ML VIAL As Ordered ONE (12:32)
[2024-06-04] MEDS: LORazepam 2 MG/ML 1ML VIAL IV STA (12:48)
[2024-06-04 14:43] LABS: PH BODY FLUID > 7.800 UNITS (NOT ESTABLISHED)
[2024-06-04 14:45] LABS: SOURCE, BODY FLUID pH OTHER
[2024-06-04 16:00] VITALS: BP 126/69; TEMP 97.6; O2SAT 96
[2024-06-04 16:09] LABS: LDH, BODY FLUID 1041 U/L (NOT ESTABLISHED); SOURCE, BODY FLUID GLUCOSE HIP RIGHT; SOURCE, BODY FLUID LDH OTHER; SOURCE, BODY FLUID URIC ACID OTHER; URIC ACID, BODY FLUID 6.3 MG/DL (NOT ESTABLISHED)
[2024-06-04 17:27] VITALS: BP 149/86
[2024-06-04] MEDS: PERCOCET 5MG/325MG TAB PO PRN (17:50)
[2024-06-04 20:08] VITALS: BP 167/88; TEMP 97.9; O2SAT 95
[2024-06-05] VITALS (7 sets, daily range): BP systolic 120–170; BP diastolic 74–95; TEMP 97.2–97.9; O2SAT 94–97
[2024-06-05 01:14] LABS: CRYSTALS, BODY FLUID NONE SEEN (NONE SEEN); SOURCE, BODY FLUID CRYSTALS RIGHT HIP
[2024-06-05 07:14] LABS: BASO % 0.2 % (0.0-1.0); EOS # 1.1 10^3/uL (0.0-0.5); EOS % 8.3 % (0.0-3.0); HEMATOCRIT 39.3 % (42.0-52.0); LYMPH # 1.2 10^3/uL (1.5-5.0); LYMPH % 9.5 % (24.0-44.0); MEAN CORPUSCULAR HEMOGLOBIN 25.1 pg (27.0-33.0); MEAN CORPUSCULAR HGB CONC 30.5 g/dl (32.0-36.5); MONO % 7.7 % (2.0-8.0); NEUTROPHILS # 9.4 10^3/uL (1.5-8.5); NEUTROPHILS % 73.7 % (36.0-66.0); PLATELET COUNT, AUTOMATED 304 10^3/uL (150-450); RED BLOOD COUNT 4.79 10^6/uL (4.30-6.10); WHITE BLOOD COUNT 12.7 10^3/uL (4.0-10.0)
[2024-06-05 07:36] LABS: ALBUMIN 2.9 G/DL (3.2-5.2); BILIRUBIN,TOTAL 0.6 MG/DL (0.3-1.2); CALCIUM LEVEL 10.7 MG/DL (8.3-10.6); CREATININE FOR GFR 1.65 MG/DL (0.70-1.30); GLOMERULAR FILTRATION RATE 43.9 (>42); POTASSIUM SERUM 3.7 MMOL/L (3.5-5.1); TOTAL PROTEIN 6.6 G/DL (5.7-8.2)
[2024-06-05 07:46] LABS: VANCOMYCIN LEVEL TROUGH 17.1 UG/ML (10.0-20.0)
[2024-06-05 07:47] LABS: C REACTIVE PROTEIN QUANTITATIV 9.47 MG/DL (<1.0)
[2024-06-05] MEDS: VANCOMYCIN HCL 750 MG, VIAL MATE ADAPTER 1 EACH in NS 250 ML IV SCH (09:24)
[2024-06-05] MEDS: FLUCONAZOLE 100 MG TAB PO ONE (17:28)
[2024-06-05] MEDS: NYSTATIN 100,000 UNITS/GM TOPICAL PWD 15GM TOP SCH (21:00)
[2024-06-05] MEDS: TRIAMCINOLONE ACET 0.1% OINTMENT 15GM EXT SCH (21:00)
[2024-06-06 04:00] VITALS: BP 152/89; TEMP 97.7; O2SAT 95
[2024-06-06 07:30] VITALS: BP 126/84; TEMP 97.7; O2SAT 98
[2024-06-06 08:25] LABS: HEMOGLOBIN 11.9 g/dl (13.5-17.5); MEAN CORPUSCULAR HEMOGLOBIN 25.2 pg (27.0-33.0); MEAN CORPUSCULAR HGB CONC 31.3 g/dl (32.0-36.5); MEAN CORPUSCULAR VOLUME 80.3 fl (80.0-96.0); PLATELET COUNT, AUTOMATED 305 10^3/uL (150-450); RED BLOOD COUNT 4.73 10^6/uL (4.30-6.10); WHITE BLOOD COUNT 11.4 10^3/uL (4.0-10.0)
[2024-06-06 08:45] LABS: C REACTIVE PROTEIN QUANTITATIV 7.85 MG/DL (<1.0); CALCIUM LEVEL 10.2 MG/DL (8.3-10.6); CREATININE FOR GFR 1.72 MG/DL (0.70-1.30); GLOMERULAR FILTRATION RATE 41.8 (>42); POTASSIUM SERUM 3.4 MMOL/L (3.5-5.1)
[2024-06-06] MEDS: ANALGESIC BALM CRM 3OZ TOP PRN (12:19)
[2024-06-06 12:53] VITALS: BP 138/84; TEMP 97.5; O2SAT 95
[2024-06-06 16:00] VITALS: BP 133/79; TEMP 97.5; O2SAT 96
[2024-06-06 20:36] VITALS: BP 148/84; TEMP 96.8; O2SAT 96
[2024-06-07 04:20] VITALS: BP 110/71; TEMP 97.2; O2SAT 88
[2024-06-07 06:14] LABS: HEMATOCRIT 35.9 % (42.0-52.0); HEMOGLOBIN 11.3 g/dl (13.5-17.5); MEAN CORPUSCULAR HEMOGLOBIN 25.7 pg (27.0-33.0); MEAN CORPUSCULAR HGB CONC 31.5 g/dl (32.0-36.5); MEAN CORPUSCULAR VOLUME 81.8 fl (80.0-96.0); PLATELET COUNT, AUTOMATED 296 10^3/uL (150-450); RED BLOOD COUNT 4.39 10^6/uL (4.30-6.10)
[2024-06-07 06:43] LABS: C REACTIVE PROTEIN QUANTITATIV 5.56 MG/DL (<1.0); CALCIUM LEVEL 10.9 MG/DL (8.3-10.6); CREATININE FOR GFR 1.83 MG/DL (0.70-1.30); GLOMERULAR FILTRATION RATE 38.9 (>42); POTASSIUM SERUM 3.7 MMOL/L (3.5-5.1)
[2024-06-07 12:00] VITALS: BP 122/91; TEMP 97.5; O2SAT 98
[2024-06-07 20:01] VITALS: BP 153/80; TEMP 97; O2SAT 98
[2024-06-07 22:53] VITALS: BP 153/80; TEMP 97
[2024-06-08] MEDS: diphenhydrAMINE 50MG/ML VIAL IM ONE (01:31)
[2024-06-08 04:01] VITALS: BP 168/91; TEMP 97.9; O2SAT 95
[2024-06-08 06:58] LABS: HEMATOCRIT 36.1 % (42.0-52.0); HEMOGLOBIN 11.3 g/dl (13.5-17.5); MEAN CORPUSCULAR HEMOGLOBIN 25.3 pg (27.0-33.0); MEAN CORPUSCULAR HGB CONC 31.3 g/dl (32.0-36.5); MEAN CORPUSCULAR VOLUME 80.9 fl (80.0-96.0); PLATELET COUNT, AUTOMATED 306 10^3/uL (150-450); RED BLOOD COUNT 4.46 10^6/uL (4.30-6.10); WHITE BLOOD COUNT 11.7 10^3/uL (4.0-10.0)
[2024-06-08 07:21] LABS: CALCIUM LEVEL 10.7 MG/DL (8.3-10.6); CREATININE FOR GFR 1.82 MG/DL (0.70-1.30); GLOMERULAR FILTRATION RATE 39.2 (>42); POTASSIUM SERUM 3.5 MMOL/L (3.5-5.1)
[2024-06-08] MEDS: cefTRIAXone SOD 2 GM in DEXTROSE 5% (D5W) ADV/MINI-BAG 50 ML IV SCH (08:11)
[2024-06-08] MEDS: ALPRAZolam 0.25 MG TAB PO ONE (09:28)
[2024-06-08] MEDS ORDERED: PROHANCE 279.3MG/ML 15ML VIAL As Ordered ONE (10:21)
[2024-06-08] MEDS ORDERED: PROHANCE 279.3MG/ML 5ML VIAL As Ordered ONE (10:23)
[2024-06-08 12:00] VITALS: BP 134/93; TEMP 97.2; O2SAT 98
[2024-06-08 20:00] VITALS: BP 140/91; TEMP 97.3; O2SAT 97
[2024-06-09] VITALS: BP 160/110; TEMP 97.3; O2SAT 98
[2024-06-09] MEDS: BISACODYL 10MG SUPP PR PRN (01:35)
[2024-06-09 02:00] VITALS: BP 131/88
[2024-06-09 04:00] VITALS: BP 106/80; TEMP 96.8; O2SAT 98
[2024-06-09 08:10] VITALS: BP 174/87
[2024-06-09 08:43] LABS: HEMATOCRIT 36.8 % (42.0-52.0); HEMOGLOBIN 11.5 g/dl (13.5-17.5); MEAN CORPUSCULAR HEMOGLOBIN 25.7 pg (27.0-33.0); MEAN CORPUSCULAR HGB CONC 31.3 g/dl (32.0-36.5); MEAN CORPUSCULAR VOLUME 82.3 fl (80.0-96.0); PLATELET COUNT, AUTOMATED 347 10^3/uL (150-450); RED BLOOD COUNT 4.47 10^6/uL (4.30-6.10)
[2024-06-09 09:07] LABS: VANCOMYCIN LEVEL TROUGH 14.6 UG/ML (10.0-20.0)
[2024-06-09 09:08] LABS: C REACTIVE PROTEIN QUANTITATIV 3.37 MG/DL (<1.0); CALCIUM LEVEL 11.2 MG/DL (8.3-10.6); CREATININE FOR GFR 1.76 MG/DL (0.70-1.30); GLOMERULAR FILTRATION RATE 40.7 (>42); POTASSIUM SERUM 3.8 MMOL/L (3.5-5.1)
[2024-06-09 16:23] VITALS: BP 152/72
[2024-06-09 20:00] VITALS: BP 158/96; TEMP 96.5; O2SAT 89
[2024-06-10] VITALS (8 sets, daily range): BP systolic 118–180; BP diastolic 63–100; TEMP 97.3–97.9; O2SAT 95–100
[2024-06-10] MEDS: amLODIPine 5 MG TAB PO ONE (00:01)
[2024-06-10] MEDS: **hydrALAZINE** 10 MG TAB PO ONE (01:52)
[2024-06-10 07:45] LABS: HEMATOCRIT 36.2 % (42.0-52.0); HEMOGLOBIN 11.1 g/dl (13.5-17.5); MEAN CORPUSCULAR HEMOGLOBIN 25.2 pg (27.0-33.0); MEAN CORPUSCULAR HGB CONC 30.7 g/dl (32.0-36.5); MEAN CORPUSCULAR VOLUME 82.3 fl (80.0-96.0); PLATELET COUNT, AUTOMATED 327 10^3/uL (150-450); WHITE BLOOD COUNT 11.5 10^3/uL (4.0-10.0)
[2024-06-10 08:16] LABS: C REACTIVE PROTEIN QUANTITATIV 2.98 MG/DL (<1.0); CALCIUM LEVEL 10.6 MG/DL (8.3-10.6); CREATININE FOR GFR 1.72 MG/DL (0.70-1.30); GLOMERULAR FILTRATION RATE 41.8 (>42); POTASSIUM SERUM 3.6 MMOL/L (3.5-5.1)
[2024-06-10] MEDS: MOM 30ML SUSPENSION UDC PO PRN (09:20)
[2024-06-10] MEDS: MIRALAX *UNIT DOSE* 17GM PACKET PO PRN (16:35)
[2024-06-11] MEDS: ALBUTEROL 90 MCG/ACT 8GM HFA INHALER INH PRN (00:26)
[2024-06-11 02:39] VITALS: O2SAT 94
[2024-06-11 03:50] VITALS: BP 118/58; TEMP 97.5; O2SAT 94
[2024-06-11 06:13] LABS: HEMATOCRIT 34.6 % (42.0-52.0); HEMOGLOBIN 10.7 g/dl (13.5-17.5); MEAN CORPUSCULAR HEMOGLOBIN 25.3 pg (27.0-33.0); MEAN CORPUSCULAR HGB CONC 30.9 g/dl (32.0-36.5); MEAN CORPUSCULAR VOLUME 81.8 fl (80.0-96.0); PLATELET COUNT, AUTOMATED 281 10^3/uL (150-450); RED BLOOD COUNT 4.23 10^6/uL (4.30-6.10); WHITE BLOOD COUNT 10.6 10^3/uL (4.0-10.0)
[2024-06-11 06:35] LABS: C REACTIVE PROTEIN QUANTITATIV 3.83 MG/DL (<1.0); CALCIUM LEVEL 10.5 MG/DL (8.3-10.6); CREATININE FOR GFR 1.73 MG/DL (0.70-1.30); GLOMERULAR FILTRATION RATE 41.5 (>42); MAGNESIUM LEVEL 1.8 MG/DL (1.8-2.4); POTASSIUM SERUM 3.7 MMOL/L (3.5-5.1)
[2024-06-11 08:00] VITALS: BP 144/66; TEMP 97.5; O2SAT 98
[2024-06-11 12:00] VITALS: BP 105/76; TEMP 97; O2SAT 98
[2024-06-11] MEDS: METOPROLOL TART 25 MG TABLET PO SCH (20:26)
[2024-06-12 04:16] VITALS: BP 125/78; TEMP 97.5; O2SAT 94
[2024-06-12 06:44] LABS: HEMATOCRIT 36.7 % (42.0-52.0); HEMOGLOBIN 11.5 g/dl (13.5-17.5); MEAN CORPUSCULAR HEMOGLOBIN 25.4 pg (27.0-33.0); MEAN CORPUSCULAR HGB CONC 31.3 g/dl (32.0-36.5); MEAN CORPUSCULAR VOLUME 81.2 fl (80.0-96.0); PLATELET COUNT, AUTOMATED 317 10^3/uL (150-450); RED BLOOD COUNT 4.52 10^6/uL (4.30-6.10); WHITE BLOOD COUNT 12.2 10^3/uL (4.0-10.0)
[2024-06-12 07:06] LABS: CALCIUM LEVEL 10.9 MG/DL (8.3-10.6); CREATININE FOR GFR 1.76 MG/DL (0.70-1.30); GLOMERULAR FILTRATION RATE 40.7 (>42); POTASSIUM SERUM 3.8 MMOL/L (3.5-5.1)
[2024-06-12 12:00] VITALS: TEMP 98.1; O2SAT 81
[2024-06-13 04:18] VITALS: BP 153/78; TEMP 97.3; O2SAT 94
[2024-06-13 12:00] VITALS: BP 175/95; TEMP 97.7; O2SAT 100
[2024-06-13] MEDS: ALTEPLASE 2MG/2ML VIAL IV PRN ×3 (12:10→17:05)
[2024-06-13] MEDS ORDERED: SODIUM CHLORIDE 0.9% INJ 10 ML SYR IV PRN (13:20)
[2024-06-13] MEDS: SODIUM CHLORIDE 0.9% INJ 10 ML SYR IV SCH (17:26)
[2024-06-13 19:26] VITALS: BP 155/83; TEMP 97.3; O2SAT 100
[2024-06-13] MEDS: ALTEPLASE 2MG/2ML VIAL IV ONE (22:52)
[2024-06-14 04:00] VITALS: BP 114/73; TEMP 97.5; O2SAT 98
[2024-06-14 08:21] VITALS: BP 133/81
[2024-06-14] MEDS ORDERED: METO50TA7 PO (12:07)
[2024-06-14] MEDS ORDERED: MIRA33506 PO (12:07)
[2024-06-14] MEDS ORDERED: NYST10006 TOP (12:07)
[2024-06-14] MEDS ORDERED: ACET32TAB PO (12:07)
[2024-06-14] MEDS ORDERED: QUET50TA4 PO (12:07)
[2024-06-14] MEDS ORDERED: PERCOCET PO (12:07)
[2024-06-14] MEDS ORDERED: PANT40TA29 PO ×2 (12:07→12:18)
[2024-06-14] MEDS ORDERED: TRES1INJ SC (12:07)
[2024-06-14] MEDS ORDERED: CEFTINJ2 IV (12:07)
[2024-06-14] MEDS ORDERED: BISA10SU PR (12:07)
[2024-06-14] MEDS ORDERED: METH-1164 PO (12:07)
[2024-06-14] MEDS ORDERED: TRIA1OI EXT (12:07)
[2024-06-14] MEDS ORDERED: RAME8TAB2 PO (12:07)
== END 2024-06-14 14:10 | DRG 548 ==
LOC: EDBD 20:51 → M ED 20:51 → M ED INP 06-02 13:03 → M MS5PR 06-02 15:50
PROVIDERS: ADMIT Student in an Organized Health Care Education/Training Program; ATTEND Internal Medicine Nephrology
PROC: 0S993ZX Drainage of Right Hip Joint, Percutaneous Approach, Diagnostic (ICD-10-PCS; principal; 2024-06-04)
PROC: 009U3ZX Drainage of Spinal Canal, Percutaneous Approach, Diagnostic (ICD-10-PCS; 2024-06-04)
PROC: 02HV33Z Insertion of Infusion Device into Superior Vena Cava, Percutaneous Approach (ICD-10-PCS; 2024-06-08)
DX: M00.851 Arthritis due to other bacteria, right hip (principal); G93.41 Metabolic encephalopathy; I50.32 Chronic diastolic (congestive) heart failure; I13.0 Hypertensive heart and chronic kidney disease with heart failure and stage 1 through stage 4 chronic kidney disease, or unspecified chronic kidney disease; M86.8X5 Other osteomyelitis, thigh; J96.11 Chronic respiratory failure with hypoxia; N18.30 Chronic kidney disease, stage 3 unspecified; E11.22 Type 2 diabetes mellitus with diabetic chronic kidney disease; J44.9 Chronic obstructive pulmonary disease, unspecified; G47.33 Obstructive sleep apnea (adult) (pediatric); I48.91 Unspecified atrial fibrillation; R33.9 Retention of urine, unspecified; F03.90 Unspecified dementia, unspecified severity, without behavioral disturbance, psychotic disturbance, mood disturbance, and anxiety; M16.11 Unilateral primary osteoarthritis, right hip; R41.82 Altered mental status, unspecified; G89.29 Other chronic pain; B37.2 Candidiasis of skin and nail; E11.40 Type 2 diabetes mellitus with diabetic neuropathy, unspecified; D64.9 Anemia, unspecified; L89.899 Pressure ulcer of other site, unspecified stage; M25.451 Effusion, right hip; L40.9 Psoriasis, unspecified; M10.9 Gout, unspecified; Z99.81 Dependence on supplemental oxygen; Z79.01 Long term (current) use of anticoagulants; Z79.891 Long term (current) use of opiate analgesic; Z79.4 Long term (current) use of insulin; Z79.899 Other long term (current) drug therapy; Z88.2 Allergy status to sulfonamides; Z88.8 Allergy status to other drugs, medicaments and biological substances; Z91.013 Allergy to seafood

== ENCOUNTER → 2024-07-04 | Outpatient (CLI) | payer MEDICARE ==
[~2024-07-04] MED LIST changes: +ACET32TAB PO; -BAYE325T12 PO; +BAYE325T2 PO; +BISA10SU PR; +CEFTINJ2 IV; +IRON1TAB2 PO; +METH-1164 PO; +MIRA33506 PO; +NYST10006 TOP; +PERCOCET PO; +RAME8TAB2 PO; +TRIA1OI EXT
== END ==
LOC: M SOG 14:34
PROVIDERS: ATTEND Orthopaedic Surgery
DX: M16.11 Unilateral primary osteoarthritis, right hip (principal); S52.571D Other intraarticular fracture of lower end of right radius, subsequent encounter for closed fracture with routine healing

== ENCOUNTER → 2024-07-26 | Outpatient (REF) | payer MEDICARE | LOC: M LAB REF 16:19 | PROVIDERS: ATTEND Nurse Practitioner Adult Health | DX: M87.051 Idiopathic aseptic necrosis of right femur (principal); R60.9 Edema, unspecified ==

== ENCOUNTER → 2024-08-08 | Outpatient (REF) | payer MEDICARE ==
[2024-08-08 17:34] LABS: APPEARANCE, URINE CLEAR (CLEAR); BACTERIA, URINE AUTO 1+ (NEGATIVE); BILIRUBIN, URINE AUTO NEGATIVE (NEGATIVE); BLOOD, URINE BLOOD NEGATIVE (NEGATIVE); COLOR, URINE YELLOW (YELLOW); GLUCOSE, URINE (UA) AUTO NEGATIVE (NEGATIVE); KETONE, URINE AUTO NEGATIVE (NEGATIVE); LEUKOCYTE ESTERASE, URINE AUTO NEGATIVE (NEGATIVE); NITRITE, URINE AUTO NEGATIVE (NEGATIVE); PROTEIN, URINE AUTO NEGATIVE (NEGATIVE); RBC, URINE AUTO 0 /HPF (0-3); SPECIFIC GRAVITY URINE AUTO 1.009 (1.002-1.035); SQUAMOUS EPITHELIAL CELL UR AU 2 /HPF (0-6); UROBILINOGEN, URINE AUTO 0.2 mg/dL (0.0-2.0); WBC, URINE AUTO 0 /HPF (0-3)
== END ==
LOC: M LAB REF 16:58
PROVIDERS: ATTEND Internal Medicine Nephrology
DX: N30.01 Acute cystitis with hematuria (principal)

== ENCOUNTER → 2024-08-20 | Outpatient (REF) | payer MEDICARE ==
[~2024-08-20] MED LIST changes: +CORTOTSO; +CORTOTSO AD; -NEOM1SOL21; -NEOM1SOL21 AD
== END ==
LOC: M SMT 11:49
PROVIDERS: ATTEND Urology
DX: Z12.5 Encounter for screening for malignant neoplasm of prostate (principal)

== ENCOUNTER → 2024-12-26 | Outpatient (REF) | payer MEDICARE ==
[~2024-12-26] MED LIST changes: -BYDU2INJ7; -BYDU2INJ7 SC; +EXEN2AUT; +EXEN2AUT SC; -PRAV20TA2 PO; +PRAV20TA78 PO
[2024-12-26 18:21] LABS: INR 1.11
== END ==
LOC: M LAB REF 17:35
PROVIDERS: ATTEND Internal Medicine
DX: Z01.818 Encounter for other preprocedural examination (principal); Z79.01 Long term (current) use of anticoagulants

== ENCOUNTER → 2025-04-02 | Outpatient (CLI) | payer MEDICARE ==
[~2025-04-02] MED LIST changes: -COLC0.6T47 PO; +COLC0.6T53 PO
== END ==
LOC: M RAD 10:57
PROVIDERS: ATTEND Podiatrist Foot & Ankle Surgery
DX: I73.89 Other specified peripheral vascular diseases (principal)

== ENCOUNTER → 2025-04-15 | Outpatient (REF) | payer MEDICARE | LOC: M LAB REF 13:42 | PROVIDERS: ATTEND Physician Assistant Medical | DX: I50.32 Chronic diastolic (congestive) heart failure (principal) ==

== ENCOUNTER 2025-04-19 16:24 | Observation (INO) | payer MEDICARE ==
[~2025-04-19] VITALS: Ht 180.3 cm; Wt 120.7 kg
[2025-04-19 18:23] LABS: BASO # 0.1 10^3/uL (0.0-0.2); BASO % 0.4 % (0.0-1.0); EOS # 0.5 10^3/uL (0.0-0.5); EOS % 3.7 % (0.0-3.0); LYMPH # 1.2 10^3/uL (1.5-5.0); LYMPH % 8.1 % (24.0-44.0); MONO # 1.2 10^3/uL (0.0-0.8); MONO % 8.0 % (2.0-8.0); NEUTROPHILS # 11.5 10^3/uL (1.5-8.5); NEUTROPHILS % 79.5 % (36.0-66.0); PLATELET COUNT, AUTOMATED 225 10^3/uL (150-450)
[2025-04-19 18:32] LABS: VENOUS BASE EXCESS 8.3 (-2.0-2.0); VENOUS HCO3 36.3 MMOL/L (23.0-27.0); VENOUS O2 SATURATION 68.7 % (60.0-80.0); VENOUS PARTIAL PRESSURE CO2 70.6 mmHg (38.0-50.0); VENOUS PARTIAL PRESSURE O2 38.0 mmHg (30.0-50.0); VENOUS PH 7.329 UNITS (7.330-7.430); VENOUS STANDARD HCO3 31.5 MMOL/L; VENOUS TOTAL CO2 38.5 MMOL/L (24.0-28.0)
[2025-04-19 18:52] LABS: ALT/SGPT 21.0 U/L (7.0-40); AST/SGOT 37.0 U/L (<34); CALCIUM LEVEL 9.3 MG/DL (8.3-10.6); CARBON DIOXIDE LEVEL 34.0 MMOL/L (20-31); CHLORIDE LEVEL 100.0 MMOL/L (98-107); CREATININE FOR GFR 1.97 MG/DL (0.70-1.30); GLOMERULAR FILTRATION RATE 35.2 (>42); POTASSIUM SERUM 4.2 MMOL/L (3.5-5.1); SODIUM LEVEL 143.0 MMOL/L (136-145)
[2025-04-19 18:54] LABS: THYROXINE (T4) 5.5 UG/DL (4.5-10.9)
[2025-04-19] MEDS: cefTRIAXone SOD 1 GM in DEXTROSE 5% (D5W) ADV/MINI-BAG 50 ML IV ONE (21:13)
[2025-04-19] MEDS: IPRATROPIUM 0.5 MG/ALBUTEROL 2.5 MG INH SOL UD 3 ML INH ONE (22:02)
[2025-04-19] MEDS ORDERED: GABA-1172 PO (22:20)
[2025-04-19] MEDS ORDERED: ACET-907 PO (22:20)
[2025-04-19] MEDS ORDERED: QUET50TA4 PO (22:29)
[2025-04-19] MEDS ORDERED: OXYC1TAB23 PO (22:29)
[2025-04-19] MEDS ORDERED: MOM 30 ML SUSPENSION UDC PO PRN (22:30)
[2025-04-19] MEDS ORDERED: MAALOX 30 ML SUSP *UDC PO PRN (22:30)
[2025-04-19] MEDS ORDERED: HOME MED LIST COMPLETE! XX SCH (22:30)
[2025-04-19] MEDS ORDERED: ACETAMINOPHEN 325 MG TAB PO PRN (22:30)
[2025-04-19] MEDS: AZITHROMYCIN INJ 500 MG, VIAL MATE ADAPTER 1 EACH in D5W 250 ML IV ONE (22:43)
[2025-04-19] MEDS ORDERED: ALBUTEROL SULFATE 2.5 MG/0.5 ML INH CONCENTRATE NEB SOLN NEB PRN (22:55)
[2025-04-19] MEDS ORDERED: RAMELTEON 8 MG TAB PO PRN (23:15)
[2025-04-19] MEDS ORDERED: QUEtiapine FUMARATE 50MG TAB PO PRN (23:15)
[2025-04-19] MEDS ORDERED: PERCOCET 5MG/325MG TAB PO PRN (23:15)
[2025-04-20] MEDS: IPRATROPIUM 0.5 MG/ALBUTEROL 2.5 MG INH SOL UD 3 ML NEB SCH (00:22)
[2025-04-20] MEDS: GABAPENTIN 300 MG CAP PO SCH (01:14)
[2025-04-20] MEDS: APIXABAN 5 MG TAB PO SCH (01:14)
[2025-04-20] MEDS: PANTOPRAZOLE 40MG TAB PO SCH (01:14)
[2025-04-20] MEDS: METOPROLOL TART 50 MG TAB PO SCH (01:19)
[2025-04-20 04:10] VITALS: BP 145/67; TEMP 98.1
[2025-04-20 06:10] VITALS: O2SAT 92
[2025-04-20] MEDS: BUDESONIDE 0.5 MG/2 ML INHALATION SUSPENSION NEB SCH (08:15)
[2025-04-20] MEDS: TORSEMIDE 20 MG TAB PO SCH (09:23)
[2025-04-20] MEDS: PRAVASTATIN 20 MG TAB PO SCH (09:24)
[2025-04-20] MEDS: POTASSIUM CHLORIDE 10MEQ SR TABLET PO SCH (09:24)
[2025-04-20] MEDS: DOCUSATE SODIUM 100 MG CAPSULE PO SCH (09:24)
[2025-04-20 09:25] VITALS: BP 150/65
[2025-04-20] MEDS ORDERED: AZIT500T5 PO (10:19)
[2025-04-20] MEDS ORDERED: PRED10TA2 PO (10:19)
[2025-04-20] MEDS ORDERED: AZITHROMYCIN 250 MG TABLET PO SCH (18:00)
[2025-04-20] MEDS ORDERED: cefTRIAXone SOD 1 GM in DEXTROSE 5% (D5W) ADV/MINI-BAG 50 ML IV SCH (20:00)
== END 2025-04-20 11:30 | disposition home or self-care (01) ==
LOC: M ED 16:24 → EDBD 16:24 → M ED INP 22:30 → INTOOBSV 22:30 → M ED INP 04-20 11:30
PROVIDERS: ADMIT Student in an Organized Health Care Education/Training Program; ATTEND Student in an Organized Health Care Education/Training Program
DX: J96.22 Acute and chronic respiratory failure with hypercapnia (principal); J44.1 Chronic obstructive pulmonary disease with (acute) exacerbation; J18.9 Pneumonia, unspecified organism; E11.9 Type 2 diabetes mellitus without complications; N18.30 Chronic kidney disease, stage 3 unspecified; I50.32 Chronic diastolic (congestive) heart failure; I48.91 Unspecified atrial fibrillation; G47.33 Obstructive sleep apnea (adult) (pediatric); M25.551 Pain in right hip; Z79.01 Long term (current) use of anticoagulants; Z79.899 Other long term (current) drug therapy; Z79.2 Long term (current) use of antibiotics
CPT/HCPCS: 36415; 70450; 71045; 72125; 80048; 80076; 82803; 83605; 83880; 84436; 84443; 85025; 87040; 87486; 87581; 87633; 87798; 93005; 93041; 94640; 94760; 96365; 96367; 96375; 96376; 97161; 99285; G0378; J0456; J0696; J2919

== ENCOUNTER → 2025-05-08 | Outpatient (CLI) | payer MEDICARE ==
[~2025-05-08] MED LIST changes: +ACET-907 PO; +AZIT500T5 PO; +PRED10TA2 PO
== END ==
LOC: M RAD 13:53
PROVIDERS: ATTEND Physician Assistant Medical
DX: J18.9 Pneumonia, unspecified organism (principal)

== ENCOUNTER → 2025-05-13 | Outpatient (CLI) | payer MEDICARE | LOC: M RAD 14:06 | PROVIDERS: ATTEND Physician Assistant | DX: I65.23 Occlusion and stenosis of bilateral carotid arteries (principal) ==

== ENCOUNTER → 2025-05-27 | Outpatient (REF) | payer MEDICARE | LOC: M LAB REF 12:18 | PROVIDERS: ATTEND Nurse Practitioner Adult Health | DX: D64.9 Anemia, unspecified (principal) ==

== ENCOUNTER → 2025-05-27 | Outpatient (CLI) | payer MEDICARE | LOC: M RAD 15:18 | PROVIDERS: ATTEND Nurse Practitioner Adult Health | DX: I48.21 Permanent atrial fibrillation (principal); R06.02 Shortness of breath; R60.9 Edema, unspecified ==

== ENCOUNTER 2025-05-29 12:24 | Inpatient (IN) | payer MEDICARE ==
[~2025-05-29] VITALS: Ht 177.8 cm; Wt 121.6 kg
[2025-05-29] MEDS: IPRATROPIUM 0.5 MG/ALBUTEROL 2.5 MG INH SOL UD 3 ML NEB ONE (13:25)
[2025-05-29 13:28] LABS: BASO # 0.1 10^3/uL (0.0-0.2); BASO % 0.5 % (0.0-1.0); EOS # 0.6 10^3/uL (0.0-0.5); EOS % 4.8 % (0.0-3.0); LYMPH # 1.2 10^3/uL (1.5-5.0); LYMPH % 10.7 % (24.0-44.0); MONO # 1.3 10^3/uL (0.0-0.8); MONO % 11.0 % (2.0-8.0); NEUTROPHILS # 8.3 10^3/uL (1.5-8.5); NEUTROPHILS % 72.5 % (36.0-66.0); PLATELET COUNT, AUTOMATED 372 10^3/uL (150-450)
[2025-05-29 13:54] LABS: INR 1.4
[2025-05-29 14:15] LABS: ALT/SGPT 22 U/L (7.0-40); AST/SGOT 34 U/L (<34); CALCIUM LEVEL 8.5 MG/DL (8.3-10.6); CARBON DIOXIDE LEVEL 38 MMOL/L (20-31); CHLORIDE LEVEL 99 MMOL/L (98-107); CK-MB VALUE MASS 8.3 NG/ML (<3.6); CPK CREATINE PHOSPHOKINASE 472 U/L (46-171); CREATININE FOR GFR 2.11 MG/DL (0.70-1.30); GLOMERULAR FILTRATION RATE 32.4 (>42); MB/CK RELATIVE INDEX 1.75 (< OR =4); POTASSIUM SERUM 4.5 MMOL/L (3.5-5.1); SODIUM LEVEL 143 MMOL/L (136-145)
[2025-05-29] MEDS: FUROSEMIDE 40 MG/4 ML VIAL IV ONE ×2 (15:57→16:39)
[2025-05-29] MEDS ORDERED: HOME MED LIST COMPLETE! XX SCH (16:15)
[2025-05-29] MEDS ORDERED: DEXTROSE 50% 50 ML SYRINGE IV PRN (17:20)
[2025-05-29] MEDS ORDERED: GLUCAGON INJ 1 MG VIAL SC PRN (17:20)
[2025-05-29] MEDS ORDERED: GLUCOSE 4 GM CHEW PO PRN (17:20)
[2025-05-29 17:51] VITALS: BP 145/81; TEMP 96.8; O2SAT 99
[2025-05-29 18:13] VITALS: BP 138/65; TEMP 97.2; O2SAT 92
[2025-05-29 18:22] LABS: IRON (FE) 18 UG/DL (65-175); PERCENT SATURATION 5.5 % (19.7-50.0)
[2025-05-29 18:25] LABS: VITAMIN B12 LEVEL 618 PG/ML (211-911)
[2025-05-29] MEDS: INSULIN LISPRO (NovoLOG) PER UNIT SC SCH (18:25)
[2025-05-29 20:22] VITALS: BP 138/65; TEMP 99; O2SAT 98
[2025-05-29] MEDS: BUDESONIDE 0.25 MG/2 ML INHALATION SUSPENSION INH SCH (20:40)
[2025-05-29] MEDS: PANTOPRAZOLE 40MG TAB PO SCH (21:23)
[2025-05-29] MEDS: APIXABAN 5 MG TAB PO SCH (21:23)
[2025-05-29] MEDS: PERCOCET 5MG/325MG TAB PO PRN (21:24)
[2025-05-29] MEDS: GABAPENTIN 300 MG CAP PO SCH (21:24)
[2025-05-29] MEDS: METOPROLOL TART 50 MG TAB PO SCH (21:25)
[2025-05-29] MEDS: FUROSEMIDE injection 100 MG, VIAL 2 BAG 13MM ADAPTER 1 EACH in NS 100 ML IV SCH (21:25)
[2025-05-30 07:43] LABS: BASO # 0.1 10^3/uL (0.0-0.2); BASO % 0.7 % (0.0-1.0); EOS # 0.6 10^3/uL (0.0-0.5); EOS % 4.6 % (0.0-3.0); LYMPH # 1.6 10^3/uL (1.5-5.0); LYMPH % 13.3 % (24.0-44.0); MONO # 1.1 10^3/uL (0.0-0.8); MONO % 8.7 % (2.0-8.0); NEUTROPHILS # 8.7 10^3/uL (1.5-8.5); NEUTROPHILS % 72.1 % (36.0-66.0); PLATELET COUNT, AUTOMATED 400 10^3/uL (150-450)
[2025-05-30 08:06] LABS: CALCIUM LEVEL 8.9 MG/DL (8.3-10.6); CARBON DIOXIDE LEVEL 36.0 MMOL/L (20-31); CHLORIDE LEVEL 97.0 MMOL/L (98-107); CREATININE FOR GFR 1.97 MG/DL (0.70-1.30); GLOMERULAR FILTRATION RATE 35.2 (>42); MAGNESIUM LEVEL 2.1 MG/DL (1.8-2.4); POTASSIUM SERUM 4.2 MMOL/L (3.5-5.1); SODIUM LEVEL 142.0 MMOL/L (136-145)
[2025-05-30] MEDS: POTASSIUM CHLORIDE 10MEQ SR TABLET PO SCH (08:30)
[2025-05-30] MEDS: PRAVASTATIN 20 MG TAB PO SCH (08:30)
[2025-05-30] MEDS: SYMBICORT 80/4.5MCG INHALER 6GM INH SCH (09:37)
[2025-05-30] MEDS: FERRIC CARBOXYMALTOSE INJ 750 MG, VIAL MATE ADAPTER 1 EACH in NS 100 ML IV ONE (14:10)
[2025-05-30 14:50] VITALS: BP 153/74; TEMP 97.8; O2SAT 98
[2025-05-30] MEDS: SENNA 8.6 MG TAB PO PRN (21:01)
[2025-05-31 00:55] VITALS: BP 145/67; TEMP 98.8; O2SAT 95
[2025-05-31 03:19] VITALS: BP 143/64; TEMP 98.2; O2SAT 98
[2025-05-31 06:29] LABS: BASO # 0.1 10^3/uL (0.0-0.2); BASO % 0.8 % (0.0-1.0); EOS # 0.6 10^3/uL (0.0-0.5); EOS % 5.2 % (0.0-3.0); LYMPH # 1.6 10^3/uL (1.5-5.0); LYMPH % 14.2 % (24.0-44.0); MONO # 1.1 10^3/uL (0.0-0.8); MONO % 9.7 % (2.0-8.0); NEUTROPHILS # 7.7 10^3/uL (1.5-8.5); NEUTROPHILS % 69.3 % (36.0-66.0); PLATELET COUNT, AUTOMATED 386 10^3/uL (150-450)
[2025-05-31 06:51] LABS: CALCIUM LEVEL 9.0 MG/DL (8.3-10.6); CARBON DIOXIDE LEVEL 36.0 MMOL/L (20-31); CHLORIDE LEVEL 97.0 MMOL/L (98-107); CREATININE FOR GFR 1.85 MG/DL (0.70-1.30); GLOMERULAR FILTRATION RATE 38.0 (>42); POTASSIUM SERUM 4.1 MMOL/L (3.5-5.1); PTH INTACT 327.3 PG/ML (18.5-88.0); SODIUM LEVEL 141.0 MMOL/L (136-145)
[2025-05-31 06:53] LABS: TOTAL 25(OH) VITAMIN D 42.0 NG/ML (20.0-100.0)
[2025-05-31] MEDS: DARBEPOETIN 100 MCG/0.5 ML *NON-DIALYSIS* SYRINGE SC SCH (11:21)
[2025-05-31 13:13] VITALS: BP 120/58; TEMP 98.6; O2SAT 99
[2025-05-31] MEDS: ALBUTEROL SULFATE 2.5 MG/0.5 ML INH CONCENTRATE NEB SOLN NEB PRN (14:57)
[2025-05-31 21:39] VITALS: BP 142/63; TEMP 97.6; O2SAT 96
[2025-05-31] MEDS: QUEtiapine FUMARATE 50MG TAB PO PRN (22:47)
[2025-06-01 03:27] VITALS: BP 118/57; TEMP 98.6; O2SAT 97
[2025-06-01 06:55] LABS: CALCIUM LEVEL 8.9 MG/DL (8.3-10.6); CARBON DIOXIDE LEVEL 37.0 MMOL/L (20-31); CHLORIDE LEVEL 98.0 MMOL/L (98-107); CREATININE FOR GFR 1.75 MG/DL (0.70-1.30); GLOMERULAR FILTRATION RATE 40.6 (>42); POTASSIUM SERUM 3.8 MMOL/L (3.5-5.1); SODIUM LEVEL 142.0 MMOL/L (136-145)
[2025-06-01] MEDS: CALCITRIOL 0.25 MCG CAP (S0169) PO SCH (08:31)
[2025-06-01 12:02] VITALS: BP 128/54; TEMP 98.3; O2SAT 97
[2025-06-01 14:57] LABS: APPEARANCE, URINE CLEAR (CLEAR); BACTERIA, URINE AUTO NEGATIVE (NEGATIVE); BILIRUBIN, URINE AUTO NEGATIVE (NEGATIVE); BLOOD, URINE BLOOD NEGATIVE (NEGATIVE); GLUCOSE, URINE (UA) AUTO NEGATIVE (NEGATIVE); KETONE, URINE AUTO NEGATIVE (NEGATIVE); LEUKOCYTE ESTERASE, URINE AUTO NEGATIVE (NEGATIVE); NITRITE, URINE AUTO NEGATIVE (NEGATIVE); PROTEIN, URINE AUTO NEGATIVE (NEGATIVE); RBC, URINE AUTO 1 /HPF (0-3); SPECIFIC GRAVITY URINE AUTO 1.008 (1.002-1.035); SQUAMOUS EPITHELIAL CELL UR AU 0 /HPF (0-6); UROBILINOGEN, URINE AUTO 0.2 mg/dL (0.0-2.0); WBC, URINE AUTO 0 /HPF (0-3)
[2025-06-01 19:59] VITALS: BP 137/63; TEMP 98.3; O2SAT 98
[2025-06-02 03:01] VITALS: BP 168/77; TEMP 98.7; O2SAT 98
[2025-06-02 04:00] VITALS: BP 120/72; TEMP 97.7; O2SAT 98
[2025-06-02 05:48] LABS: BASO # 0.1 10^3/uL (0.0-0.2); BASO % 0.6 % (0.0-1.0); EOS # 0.7 10^3/uL (0.0-0.5); EOS % 5.4 % (0.0-3.0); LYMPH # 1.8 10^3/uL (1.5-5.0); LYMPH % 14.5 % (24.0-44.0); MONO # 1.0 10^3/uL (0.0-0.8); MONO % 8.2 % (2.0-8.0); NEUTROPHILS # 8.9 10^3/uL (1.5-8.5); NEUTROPHILS % 70.7 % (36.0-66.0); PLATELET COUNT, AUTOMATED 319 10^3/uL (150-450)
[2025-06-02 06:21] LABS: CALCIUM LEVEL 8.7 MG/DL (8.3-10.6); CARBON DIOXIDE LEVEL 36.0 MMOL/L (20-31); CHLORIDE LEVEL 98.0 MMOL/L (98-107); CREATININE FOR GFR 1.87 MG/DL (0.70-1.30); GLOMERULAR FILTRATION RATE 37.5 (>42); POTASSIUM SERUM 3.7 MMOL/L (3.5-5.1); SODIUM LEVEL 141.0 MMOL/L (136-145)
[2025-06-02 12:00] VITALS: BP 134/63; TEMP 98.4
[2025-06-02 20:00] VITALS: BP 119/67; TEMP 98.5; O2SAT 97
[2025-06-03] MEDS: RAMELTEON 8 MG TAB PO PRN (02:16)
[2025-06-03 03:40] VITALS: BP 121/58; TEMP 97.8; O2SAT 94
[2025-06-03 06:52] LABS: CALCIUM LEVEL 8.7 MG/DL (8.3-10.6); CARBON DIOXIDE LEVEL 38.0 MMOL/L (20-31); CHLORIDE LEVEL 97.0 MMOL/L (98-107); CREATININE FOR GFR 1.95 MG/DL (0.70-1.30); GLOMERULAR FILTRATION RATE 35.7 (>42); POTASSIUM SERUM 3.9 MMOL/L (3.5-5.1); SODIUM LEVEL 140.0 MMOL/L (136-145)
[2025-06-03] MEDS: acetaZOLAMIDE 250 MG TAB PO ONE (10:38)
[2025-06-03 12:00] VITALS: BP 111/56; TEMP 98.1; O2SAT 98
[2025-06-03 20:38] VITALS: BP 115/57; TEMP 98.3; O2SAT 98
[2025-06-04 05:51] VITALS: BP 109/63; TEMP 98.5; O2SAT 92
[2025-06-04 06:43] LABS: BASO # 0.1 10^3/uL (0.0-0.2); BASO % 0.7 % (0.0-1.0); EOS # 0.9 10^3/uL (0.0-0.5); EOS % 8.1 % (0.0-3.0); LYMPH # 1.5 10^3/uL (1.5-5.0); LYMPH % 14.6 % (24.0-44.0); MONO # 0.9 10^3/uL (0.0-0.8); MONO % 8.3 % (2.0-8.0); NEUTROPHILS # 7.1 10^3/uL (1.5-8.5); NEUTROPHILS % 67.7 % (36.0-66.0); PLATELET COUNT, AUTOMATED 298 10^3/uL (150-450)
[2025-06-04 07:06] LABS: CALCIUM LEVEL 9.0 MG/DL (8.3-10.6); CARBON DIOXIDE LEVEL 36.0 MMOL/L (20-31); CHLORIDE LEVEL 96.0 MMOL/L (98-107); CREATININE FOR GFR 2.0 MG/DL (0.70-1.30); GLOMERULAR FILTRATION RATE 34.6 (>42); POTASSIUM SERUM 3.8 MMOL/L (3.5-5.1); SODIUM LEVEL 139.0 MMOL/L (136-145)
[2025-06-04] MEDS: acetaZOLAMIDE 250 MG TAB PO ONE (08:51)
[2025-06-04 11:33] VITALS: TEMP 97.8; O2SAT 98
[2025-06-04 20:40] VITALS: BP 122/57; TEMP 98.7; O2SAT 98
[2025-06-05 04:30] VITALS: BP 139/66; TEMP 97.8; O2SAT 100
[2025-06-05 09:21] LABS: CALCIUM LEVEL 9.0 MG/DL (8.3-10.6); CARBON DIOXIDE LEVEL 36.0 MMOL/L (20-31); CHLORIDE LEVEL 99.0 MMOL/L (98-107); CREATININE FOR GFR 1.95 MG/DL (0.70-1.30); GLOMERULAR FILTRATION RATE 35.7 (>42); POTASSIUM SERUM 3.3 MMOL/L (3.5-5.1); SODIUM LEVEL 144.0 MMOL/L (136-145)
[2025-06-05 11:42] VITALS: BP 117/55; TEMP 98.4; O2SAT 99
[2025-06-05] MEDS: POTASSIUM CHLORIDE 10MEQ SR TABLET PO ONE (12:24)
[2025-06-05] MEDS ORDERED: PILL CUTTER 1 EACH XX PRN (12:35)
[2025-06-05 13:00] LABS: MAGNESIUM LEVEL 2.2 MG/DL (1.8-2.4)
[2025-06-05 20:00] VITALS: BP 144/63; TEMP 99; O2SAT 92
[2025-06-05] MEDS: traZODone 25MG PER 1/2 TABLET PO SCH (22:16)
[2025-06-06 04:29] VITALS: BP 121/58; TEMP 98.2; O2SAT 99
[2025-06-06 09:58] LABS: CALCIUM LEVEL 9.4 MG/DL (8.3-10.6); CARBON DIOXIDE LEVEL 34.0 MMOL/L (20-31); CHLORIDE LEVEL 97.0 MMOL/L (98-107); CREATININE FOR GFR 2.06 MG/DL (0.70-1.30); GLOMERULAR FILTRATION RATE 33.4 (>42); PHOSPHORUS LEVEL 2.6 MG/DL (2.4-5.1); POTASSIUM SERUM 3.5 MMOL/L (3.5-5.1); SODIUM LEVEL 140.0 MMOL/L (136-145)
[2025-06-06 12:00] VITALS: BP 104/50; TEMP 98.2; O2SAT 98
[2025-06-06 20:00] VITALS: BP 122/59; O2SAT 99
[2025-06-07] MEDS: traZODone 25MG PER 1/2 TABLET PO SCH ×2 (00:10→21:29)
[2025-06-07 03:41] VITALS: BP 117/57; TEMP 97.9; O2SAT 98
[2025-06-07 07:09] LABS: PLATELET COUNT, AUTOMATED 227 10^3/uL (150-450)
[2025-06-07 07:31] LABS: CALCIUM LEVEL 9.2 MG/DL (8.3-10.6); CARBON DIOXIDE LEVEL 36.0 MMOL/L (20-31); CHLORIDE LEVEL 97.0 MMOL/L (98-107); CREATININE FOR GFR 2.03 MG/DL (0.70-1.30); GLOMERULAR FILTRATION RATE 34.0 (>42); MAGNESIUM LEVEL 2.2 MG/DL (1.8-2.4); POTASSIUM SERUM 3.4 MMOL/L (3.5-5.1); SODIUM LEVEL 140.0 MMOL/L (136-145)
[2025-06-07 08:20] LABS: PHOSPHORUS LEVEL 2.9 MG/DL (2.4-5.1)
[2025-06-07] MEDS: POTASSIUM CHLORIDE 10MEQ SR TABLET PO ONE (09:17)
[2025-06-07 11:58] VITALS: BP 114/56; TEMP 98.2; O2SAT 94
[2025-06-07 20:16] VITALS: BP 114/57; TEMP 99; O2SAT 96
[2025-06-08 04:57] VITALS: BP 126/56; TEMP 98.5; O2SAT 97
[2025-06-08 06:55] LABS: PLATELET COUNT, AUTOMATED 232 10^3/uL (150-450)
[2025-06-08 07:23] LABS: CALCIUM LEVEL 9.0 MG/DL (8.3-10.6); CARBON DIOXIDE LEVEL 33.0 MMOL/L (20-31); CHLORIDE LEVEL 99.0 MMOL/L (98-107); CREATININE FOR GFR 2.08 MG/DL (0.70-1.30); GLOMERULAR FILTRATION RATE 33.0 (>42); MAGNESIUM LEVEL 2.3 MG/DL (1.8-2.4); POTASSIUM SERUM 3.8 MMOL/L (3.5-5.1); SODIUM LEVEL 141.0 MMOL/L (136-145)
[2025-06-08] MEDS: TIOTROPIUM BROM 2.5MCG/ACTUATION 4GM INH INH SCH (10:26)
[2025-06-08 12:00] VITALS: BP 106/51; TEMP 98.1; O2SAT 98
[2025-06-08 21:05] VITALS: BP 143/62; TEMP 98.7; O2SAT 98
[2025-06-08] MEDS: RAMELTEON 8 MG TAB PO SCH (21:09)
[2025-06-08] MEDS: MIRALAX *UNIT DOSE* 17 GM PACKET PO PRN (23:17)
[2025-06-09 03:35] VITALS: BP 132/58; TEMP 98.4; O2SAT 92
[2025-06-09 06:06] LABS: PLATELET COUNT, AUTOMATED 199 10^3/uL (150-450)
[2025-06-09 06:32] LABS: CALCIUM LEVEL 8.7 MG/DL (8.3-10.6); CARBON DIOXIDE LEVEL 34.0 MMOL/L (20-31); CHLORIDE LEVEL 100.0 MMOL/L (98-107); CREATININE FOR GFR 2.04 MG/DL (0.70-1.30); GLOMERULAR FILTRATION RATE 33.8 (>42); MAGNESIUM LEVEL 2.3 MG/DL (1.8-2.4); POTASSIUM SERUM 3.6 MMOL/L (3.5-5.1); SODIUM LEVEL 141.0 MMOL/L (136-145)
[2025-06-09 12:00] VITALS: BP 106/58; TEMP 98.1; O2SAT 97
[2025-06-09 20:15] VITALS: BP 142/62; TEMP 98.8; O2SAT 94
[2025-06-10 05:34] VITALS: BP 139/63; TEMP 98.3; O2SAT 97
[2025-06-10 07:52] LABS: PLATELET COUNT, AUTOMATED 197 10^3/uL (150-450)
[2025-06-10 08:00] VITALS: BP 118/55
[2025-06-10 08:00] LABS: CALCIUM LEVEL 8.9 MG/DL (8.3-10.6); CARBON DIOXIDE LEVEL 34.0 MMOL/L (20-31); CHLORIDE LEVEL 96.0 MMOL/L (98-107); CREATININE FOR GFR 2.23 MG/DL (0.70-1.30); GLOMERULAR FILTRATION RATE 30.4 (>42); MAGNESIUM LEVEL 2.4 MG/DL (1.8-2.4); POTASSIUM SERUM 3.7 MMOL/L (3.5-5.1); SODIUM LEVEL 138.0 MMOL/L (136-145)
[2025-06-10] MEDS: TORSEMIDE 100 MG TAB PO SCH (08:00)
[2025-06-10] MEDS ORDERED: TORS100T PO (08:18)
[2025-06-10] MEDS ORDERED: CALC1CAP31 PO (08:18)
== END 2025-06-10 12:54 | disposition home health service (06) | DRG 291 ==
LOC: M ED 12:24 → M ED INP 12:25 → OBSVTOIN 05-30 10:36 → M MSPAV 05-30 14:51
PROVIDERS: ADMIT Student in an Organized Health Care Education/Training Program; ATTEND Internal Medicine Nephrology
PROC: 30233N1 Transfusion of Nonautologous Red Blood Cells into Peripheral Vein, Percutaneous Approach (ICD-10-PCS; principal; 2025-05-29)
PROC: B246ZZZ Ultrasonography of Right and Left Heart (ICD-10-PCS; 2025-05-30)
DX: I13.0 Hypertensive heart and chronic kidney disease with heart failure and stage 1 through stage 4 chronic kidney disease, or unspecified chronic kidney disease (principal); I50.33 Acute on chronic diastolic (congestive) heart failure; J96.11 Chronic respiratory failure with hypoxia; N17.9 Acute kidney failure, unspecified; E78.5 Hyperlipidemia, unspecified; E11.22 Type 2 diabetes mellitus with diabetic chronic kidney disease; I48.91 Unspecified atrial fibrillation; N18.32 Chronic kidney disease, stage 3b; J44.9 Chronic obstructive pulmonary disease, unspecified; Z99.81 Dependence on supplemental oxygen; N40.0 Benign prostatic hyperplasia without lower urinary tract symptoms; M10.9 Gout, unspecified; G47.33 Obstructive sleep apnea (adult) (pediatric); K76.0 Fatty (change of) liver, not elsewhere classified; D50.9 Iron deficiency anemia, unspecified; Z96.653 Presence of artificial knee joint, bilateral; Z98.41 Cataract extraction status, right eye; Z96.641 Presence of right artificial hip joint; Z87.891 Personal history of nicotine dependence; K59.09 Other constipation; Z79.01 Long term (current) use of anticoagulants; Z79.4 Long term (current) use of insulin; Z79.899 Other long term (current) drug therapy; Z88.2 Allergy status to sulfonamides; Z91.013 Allergy to seafood; Z88.8 Allergy status to other drugs, medicaments and biological substances; I73.9 Peripheral vascular disease, unspecified; E11.51 Type 2 diabetes mellitus with diabetic peripheral angiopathy without gangrene; E11.42 Type 2 diabetes mellitus with diabetic polyneuropathy; M19.90 Unspecified osteoarthritis, unspecified site; D63.8 Anemia in other chronic diseases classified elsewhere; E66.01 Morbid (severe) obesity due to excess calories

== ENCOUNTER 2025-06-13 11:12 | Observation (INO) | payer MEDICARE ==
[~2025-06-13] VITALS: Ht 180.3 cm; Wt 123.0 kg
[~2025-06-13 11:12] MED LIST changes: +CALC1CAP31 PO; +TORS100T PO
[2025-06-13 11:56] LABS: BASO # 0.1 10^3/uL (0.0-0.2); BASO % 0.5 % (0.0-1.0); EOS # 1.1 10^3/uL (0.0-0.5); EOS % 11.6 % (0.0-3.0); LYMPH # 1.4 10^3/uL (1.5-5.0); LYMPH % 15.1 % (24.0-44.0); MONO # 0.9 10^3/uL (0.0-0.8); MONO % 9.5 % (2.0-8.0); NEUTROPHILS # 5.7 10^3/uL (1.5-8.5); NEUTROPHILS % 63.1 % (36.0-66.0); PLATELET COUNT, AUTOMATED 173 10^3/uL (150-450)
[2025-06-13 12:25] LABS: CALCIUM LEVEL 9.0 MG/DL (8.3-10.6); CARBON DIOXIDE LEVEL 38.0 MMOL/L (20-31); CHLORIDE LEVEL 100.0 MMOL/L (98-107); CREATININE FOR GFR 2.36 MG/DL (0.70-1.30); GLOMERULAR FILTRATION RATE 28.4 (>42); POTASSIUM SERUM 4.4 MMOL/L (3.5-5.1); SODIUM LEVEL 141.0 MMOL/L (136-145)
[2025-06-13 12:28] LABS: FREE T4 0.83 NG/DL (0.89-1.76)
[2025-06-13] MEDS ORDERED: TIZA4CAP PO (13:54)
[2025-06-13] MEDS ORDERED: MIRA3350 PO (13:54)
[2025-06-13] MEDS ORDERED: TORS100T PO (13:54)
[2025-06-13] MEDS ORDERED: CALC1CAP31 PO (13:54)
[2025-06-13] MEDS ORDERED: LANTINJ4 SC (13:54)
[2025-06-13] MEDS ORDERED: HOME MED LIST COMPLETE! XX SCH (14:05)
[2025-06-13] MEDS ORDERED: ACETAMINOPHEN 325 MG TAB PO PRN (16:35)
[2025-06-13] MEDS ORDERED: MIRALAX *UNIT DOSE* 17 GM PACKET PO PRN (16:35)
[2025-06-13] MEDS ORDERED: QUEtiapine FUMARATE 50MG TAB PO PRN (16:35)
[2025-06-13] MEDS ORDERED: DEXTROSE 50% 50 ML SYRINGE IV PRN (16:50)
[2025-06-13] MEDS ORDERED: GLUCAGON INJ 1 MG VIAL SC PRN (16:50)
[2025-06-13] MEDS ORDERED: GLUCOSE 4 GM CHEW PO PRN (16:50)
[2025-06-13] MEDS: INSULIN LISPRO (NovoLOG) PER UNIT SC SCH ×2 (17:30→21:00)
[2025-06-13 18:05] VITALS: BP 150/66; TEMP 97.6; O2SAT 96
[2025-06-13 18:56] LABS: ESTIMATED AVERAGE GLUCOSE 114.0 MG/DL (60-110)
[2025-06-13] MEDS: TORSEMIDE 100 MG TAB PO SCH (19:21)
[2025-06-13] MEDS: PERCOCET 5MG/325MG TAB PO PRN (19:23)
[2025-06-13 19:39] VITALS: BP 120/81; TEMP 98; O2SAT 99
[2025-06-13] MEDS: SYMBICORT 160/4.5MCG INHALER 6GM INH SCH (20:00)
[2025-06-13] MEDS: GABAPENTIN 300 MG CAP PO SCH (22:01)
[2025-06-13] MEDS: SENNA 8.6 MG TAB PO SCH (22:02)
[2025-06-13] MEDS: PANTOPRAZOLE 40MG TAB PO SCH (22:02)
[2025-06-13] MEDS: APIXABAN 5 MG TAB PO SCH (22:02)
[2025-06-13 23:17] VITALS: BP 129/58; TEMP 98.1; O2SAT 91
[2025-06-14 03:44] VITALS: BP 148/65; TEMP 96.9; O2SAT 96
[2025-06-14 05:07] LABS: PLATELET COUNT, AUTOMATED 186 10^3/uL (150-450)
[2025-06-14 05:27] LABS: CALCIUM LEVEL 8.9 MG/DL (8.3-10.6); CARBON DIOXIDE LEVEL 32.0 MMOL/L (20-31); CHLORIDE LEVEL 99.0 MMOL/L (98-107); CREATININE FOR GFR 2.14 MG/DL (0.70-1.30); GLOMERULAR FILTRATION RATE 31.9 (>42); POTASSIUM SERUM 4.2 MMOL/L (3.5-5.1); SODIUM LEVEL 140.0 MMOL/L (136-145)
[2025-06-14 07:38] VITALS: BP 125/59; TEMP 98.7; O2SAT 93
[2025-06-14] MEDS: ALBUTEROL 90 MCG/ACT 8 GM HFA INHALER INH PRN (08:19)
[2025-06-14] MEDS: POTASSIUM CHLORIDE 10MEQ SR TABLET PO SCH (08:40)
[2025-06-14] MEDS: PRAVASTATIN 20 MG TAB PO SCH (08:40)
[2025-06-14] MEDS: CALCITRIOL 0.25 MCG CAP (S0169) PO SCH (08:41)
[2025-06-14] MEDS: LanTUS (INSULIN GLARGINE INJ) 1 UNITS/0.01 ML SC SCH (08:41)
[2025-06-14] MEDS ORDERED: METOPROLOL SUCC *XL* 12.5 MG PER 1/2 TAB PO SCH (09:00)
[2025-06-14 12:10] VITALS: BP 131/68; TEMP 98.2; O2SAT 93
[2025-06-14] MEDS ORDERED: METO1TAB87 PO (15:56)
[2025-06-14 16:33] VITALS: BP 145/70
[2025-06-14 16:36] VITALS: BP 145/70
== END 2025-06-14 17:45 | disposition home or self-care (01) ==
LOC: M ED 11:12 → M ED INP 11:13 → M PCU 18:02
PROVIDERS: ADMIT Internal Medicine; ATTEND Internal Medicine
DX: I48.91 Unspecified atrial fibrillation (principal); I49.8 Other specified cardiac arrhythmias; E78.5 Hyperlipidemia, unspecified; I50.30 Unspecified diastolic (congestive) heart failure; I11.0 Hypertensive heart disease with heart failure; N18.30 Chronic kidney disease, stage 3 unspecified; J44.9 Chronic obstructive pulmonary disease, unspecified; E11.9 Type 2 diabetes mellitus without complications; D64.9 Anemia, unspecified; Z79.01 Long term (current) use of anticoagulants; Z79.899 Other long term (current) drug therapy; Z79.4 Long term (current) use of insulin
CPT/HCPCS: 36415; 71045; 80048; 83036; 83690; 84439; 84443; 85025; 85027; 93005; 93041; 94640; 94760; 99285; G0378; J1815

== ENCOUNTER → 2025-06-14 | Outpatient (CLI) | payer MEDICARE ==
[~2025-06-14] MED LIST changes: +LANTINJ4 SC; +METO1TAB87 PO; +MIRA3350 PO; +SPIR100T3 PO; +TIZA4CAP PO
== END ==
LOC: M EKG 17:36
PROVIDERS: ATTEND Internal Medicine
DX: I48.91 Unspecified atrial fibrillation (principal); R00.1 Bradycardia, unspecified